=== PATIENT | female | born 1970 | race Asian ===

== ENCOUNTER → 2020-10-28 11:31 | Outpatient (CLI) | payer OTHER, SELFPAY ==
[2020-10-28 14:54] LABS: COVID19 -Nasal RAPID Negative (Negative)
== END ==
PROVIDERS: PCP Registered Nurse; Referring Provider Physician Assistant; Visit Provider Physician Assistant
DX: Z20.822 Contact with and (suspected) exposure to COVID-19 (principal); R51.9 Headache, unspecified
CPT/HCPCS: 87635

== ENCOUNTER → 2020-11-05 09:21 | Outpatient (CLI) | payer OTHER, SELFPAY ==
[2020-11-05 10:07] LABS: Add Manual Diff / Slide Review NO; Basophils Absolute Auto 100 /uL (0-100); Basophils Percent Auto 1.3 % (0-2); Eosinophils Absolute Auto 100 /uL (0-450); Eosinophils Percent Auto 1.4 % (2-4); Hematocrit 42.2 % (36-46); Hemoglobin 14.2 g/dL (12.0-16.0); Lymphocytes Absolute Auto 2200 /uL (1100-4500); Lymphocytes Percent Auto 35.3 % (25-40); Mean Corpuscular HGB Conc 33.7 % (30-36); Mean Corpuscular Hemoglobin 28.2 PG (26-34); Mean Corpuscular Volume 83.6 fL (80-100); Monocytes Absolute Auto 400 /uL (0-900); Neutrophils Absolute Auto 3500 /uL (1500-7000); Platelet Count 229 X10^3/uL (150-400); Red Blood Cell Count 5.05 X10^6/uL (4.0-5.2); Red Cell Distribution Width 12.9 % (11.6-14.8); White Blood Cell Count 6.2 X10^3/uL (4.5-11.0)
[2020-11-05 11:03] LABS: Alanine Aminotransferase 55 IU/L (<35); Albumin 4.7 g/dL (3.5-5.0); Albumin Globulin Ratio 1.6 (1.0-2.8); Alkaline Phosphatase 83 U/L (38-126); Aspartate Aminotransferase 40 IU/L (14-36); BUN Creatinine Ratio 11.8 (6-22); Bilirubin Total 0.5 mg/dL (0.2-1.3); Blood Urea Nitrogen 8 mg/dL (7-17); Calcium 9.9 mg/dL (8.4-10.2); Carbon Dioxide 27 mmol/L (22-32); Chloride 105 mmol/L (98-107); Cholesterol 158 mg/dL (140-199); Estimated Glomerular Filt Rate > 60.0 mL/min (>60); Globulin 2.9 g/dL (1.7-4.1); Glucose 101 mg/dL (70-100); HDL Cholesterol 53 mg/dL (40-60); HEMOLYSIS < 15 (0-50); LDL Cholesterol Calculated 78 mg/dL (<100); Potassium 4.8 mmol/L (3.4-5.1); Sodium 141 mmol/L (137-145); Total Protein 7.6 g/dL (6.3-8.2); Triglycerides 134 mg/dL (35-150)
[2020-11-05 11:19] LABS: Vitamin D 25 Hydroxy (D3) 59.9 ng/mL (30.0-100.0)
[2020-11-05 11:30] LABS: TSH w/ Reflex to FT4 1.92 uIU/mL (0.47-4.68)
== END ==
PROVIDERS: PCP Registered Nurse; Referring Provider Registered Nurse; Visit Provider Registered Nurse
DX: D64.9 Anemia, unspecified (principal); Z82.49 Family history of ischemic heart disease and other diseases of the circulatory system; Z86.39 Personal history of other endocrine, nutritional and metabolic disease
CPT/HCPCS: 36415; 80053; 80061; 82306; 84443; 85025

== ENCOUNTER → 2020-11-11 14:37 | Outpatient (CLI) | payer OTHER, SELFPAY ==
--- NOTE | 2020-11-11 14:38 | DI.US.S_ITS ---
PROCEDURE: US PELVIC COMPLETE INDICATIONS: DUB TECHNIQUE: Real-time scanning was performed of the pelvic organs, with image documentation. Additional endovaginal scanning was necessary due to incomplete visualization of the adnexal and endometrial structures by transabdominal scanning. COMPARISON: None. FINDINGS: Uterus: Uterus is normal in size at 8.1 x 4.0 x 5.7 cm. The endometrium measures 4.8 mm in combined thickness. 2 intramural fibroids, largest measuring 1.0 cm. Ovaries: Right ovary not visualized. Normal left ovary measuring 2.6 x 1.0 x 2.1 cm. Other: No pathologic free abdominal or pelvic fluid. IMPRESSION: 1. 2 small intramural fibroids, largest measuring 1.0 cm. Dictated by: Maxwell RINCON Interpreted: Christopher Sagastume MD on 11/11/2020 at 15:28 Transcribed by: CARMEN on 11/11/2020 at 15:29 Approved by: Christopher Sagastume M.D. on 11/11/2020 at 16:48
== END ==
PROVIDERS: PCP Registered Nurse; Referring Provider Registered Nurse; Visit Provider Registered Nurse
DX: N92.0 Excessive and frequent menstruation with regular cycle (principal); D25.1 Intramural leiomyoma of uterus
CPT/HCPCS: 76830; 76856

== ENCOUNTER → 2020-12-19 08:44 | Outpatient (CLI) | payer OTHER, SELFPAY ==
[2020-12-19 10:24] LABS: Appearance Urine UA CLOUDY; Bilirubin Urine UA NEGATIVE (NEGATIVE); Color Urine UA YELLOW; Glucose Urine UA NEGATIVE (Negative); Ketones Urine UA NEGATIVE (NEGATIVE); Leukocyte Esterase Urine UA 2+ (NEGATIVE); Nitrite Urine UA NEGATIVE (Negative); Occult Blood Urine UA 1+ (Negative); Protein Urine UA 1+ (Negative); Specific Gravity Urine UA 1.025 (1.000-1.035); Urobilinogen Urine UA 0.2 E.U./dL (0.2)
[2020-12-19 10:25] LABS: pH Urine UA 5.5 (4.5-8.0)
[2020-12-19 10:40] LABS: Bacteria Urine None Seen; RBC Urine 5-10/HPF (0-5/HPF); Squamous Epithelial Cell Urine 5-10 /HPF (0-5/HPF); WBC Urine 5-10/HPF (0-5/HPF)
[2020-12-19 10:41] LABS: Culture Indicated Urine Cult Not Indicated
== END ==
PROVIDERS: PCP Registered Nurse; Referring Provider Obstetrics & Gynecology; Visit Provider Obstetrics & Gynecology
DX: R30.0 Dysuria (principal)
CPT/HCPCS: 81001

== ENCOUNTER 2020-12-27 10:41 | Emergency (ER) | payer OTHER, SELFPAY ==
[2020-12-27 11:10] VITALS: BP 188/104; PULSE 80; RESP 14; TEMP 36.2; O2SAT 98; BMI 28.6
[2020-12-27 13:17] VITALS: BP 173/113; PULSE 92; RESP 16; O2SAT 94
--- NOTE | 2020-12-27 13:35 | ED.HA ---
HPI - Headache <TRENA Sharma - Last Filed: 12/27/20 16:53> General Chief Complaint: Headache Stated Complaint: migraine since wednesday/back of head tender Time Seen by Provider: 12/27/20 13:23 Mode of arrival: Ambulatory Limitations: no limitations History of Present Illness HPI Narrative: Patient is a 50-year-old female with history of asthma, GERD, anxiety/depression, migraines, and hypothyroidism who presents to the emergency department today with complaint of headache that started 2 days ago with nausea, no vomiting, and she does endorse having a swollen lymph node on the back of her neck. She reports that she took her Imitrex yesterday which helped a little bit but she has continued to have this headache and it has not gone away yet. She also reports she took some naproxen earlier this morning and she was able to go back to sleep. She denies any fever, abdominal pain, chest pain, vision changes, dizziness, difficulty breathing, Related Data Previous Rx's Medication Instructions Recorded buspirone 7.5 mg tablet 7.5 mg PO BID #60 tab 11/01/20 sumatriptan succinate 25 mg tablet See Rx Instructions PO .COMPLEX 11/19/20 (Imitrex) #60 tab hydroxyzine HCl 50 mg tablet 100 mg PO BEDTIME PRN #60 tab 12/03/20 levothyroxine 25 mcg tablet See Rx Instructions .ROUTE 12/04/20 .COMPLEX #90 tab alprazolam 0.5 mg tablet 0.5 mg PO DAILY PRN #7 tab 12/05/20 Allergies Allergy/AdvReac Type Severity Reaction Status Date / Time Penicillins Allergy Severe Hives Verified 12/27/20 11:14 erythromycin base Allergy Mild N/V Verified 12/27/20 11:14 Review of Systems <TRENA Sharma - Last Filed: 12/27/20 16:53> Review of Systems Narrative: General: denies fever, chills Head/Neck: Endorses having a headache for 2 days, denies neck pain or stiffness Eyes: denies visual changes, eye pain Cardio: denies chest pain, palpitations Respiratory: denies shortness of breath, cough, denies any URI symptoms GI: denies abdominal pain, vomiting, or diarrhea, endorses mild nausea but no vomiting : denies dysuria, hematuria MSK: denies joint pain, muscle weakness Skin: denies rash, itching Neuro: denies numbness, tingling Patient History <TRENA Sharma - Last Filed: 12/27/20 16:53> Medical History Anemia (~1998) Anxiety (~1998) Asthma Carpal tunnel syndrome (~2011) Chicken pox Degenerative disc disease (~2016) Depression (~1998) Fibroids (~2018) Headache (~2011) Heavy menstrual period (~2006) Hypothyroidism (~2009) Insomnia Irregular menstrual cycle (~2009) Migraines (~2011) Miscarriage Sleep apnea (~2014) Thyroid nodule Vertigo (~2012) Surgical History Anesthesia History of hand surgery (~2011) History of microdiscectomy (~2016) S/P arthroscopic surgery of left knee (~1999) Family History Father Hypertension Hyperlipidemia Mother Cancer Grandfather History of heart attack History of heart disease Hypertension Grandmother Hypertension Social History Smoking Status: Former smoker Tobacco: How many years used: 20 quit status: has quit before alcohol intake: current substance use type: does not use Smoking Status: Former smoker alcohol intake frequency: holidays/special occasions only Substance Use Type: does not use Exam <TRENA Sharma - Last Filed: 12/27/20 16:53> Narrative Exam Narrative: Independently reviewed vitals signs and nursing notes. General: Awake, alert, nontoxic, no cardiorespiratory distress Head/Neck: Atraumatic, neck full range of motion, 1 less than 1 cm lymph node palpated her left occipital scalp which was tender to palpation Eyes: EOMI, conjunctiva normal, no nystagmus, no photosensitivity Nose: nares patent, no rhinorrhea Mouth/Throat: moist mucus membranes, no oral lesions Cardio: Regular rate and rhythm, no peripheral edema Respiratory: respirations unlabored without wheezing, stridor, or rales. No retractions. GI: Abdomen soft, nontender MSK: Moves all extremities, neurovascularly intact Skin: Normal capillary refill, no rash Neuro: Normal speech and cognition, cranial nerves 2-12 are grossly intact without any focal deficits, patient ambulates with a steady gait, Initial Vital Signs Initial Vital Signs: Vital Signs Temperature 97.2 F L 12/27/20 11:10 Pulse Rate 80 12/27/20 11:10 Respiratory Rate 14 12/27/20 11:10 Blood Pressure 188/104 H 12/27/20 11:10 Pulse Oximetry 98 12/27/20 11:10 <Eron Sullivan MD - Last Filed: 12/27/20 18:32> Initial Vital Signs Initial Vital Signs: Vital Signs Temperature 97.2 F L 12/27/20 11:10 Pulse Rate 80 12/27/20 11:10 Respiratory Rate 14 12/27/20 11:10 Blood Pressure 188/104 H 12/27/20 11:10 Pulse Oximetry 98 12/27/20 11:10 Course <TRENA Sharma - Last Filed: 12/27/20 16:53> Orders Ordered: ED Orders 12/27/20 13:26 Magnesium Stat Discontinued Medications Acetaminophen (Acetaminophen 325 Mg Tablet) 975 mg PO NOW ONE Stop: 12/27/20 15:19 Last Admin: 12/27/20 15:38 Dose: 975 mg Documented by: HANNAH Dexamethasone (Dexamethasone 10 Mg/Ml Vial) 10 mg IV NOW ONE Stop: 12/27/20 13:25 Last Admin: 12/27/20 13:52 Dose: 10 mg Documented by: HANNAH Diphenhydramine HCl (Diphenhydramine 50 Mg/Ml Vial) 25 mg IV NOW ONE Stop: 12/27/20 13:25 Last Admin: 12/27/20 13:54 Dose: 25 mg Documented by: HANNAH Sodium Chloride (Normal Saline 0.9%) 1,000 mls @ 1,000 mls/hr IV BOLUS ONE Stop: 12/27/20 14:23 Last Infusion: 12/27/20 15:10 Dose: 0 mls/hr Documented by: Admin: 12/27/20 13:52 Dose: 1,000 mls/hr Documented by: HANNAH Magnesium Sulfate (Magnesium Sulfate) 2 gm in 50 mls @ 50 mls/hr IV NOW ONE Stop: 12/27/20 16:17 Last Infusion: 12/27/20 16:45 Dose: 0 mls/hr Documented by: HANNAH Cosigned by: ANDER Admin: 12/27/20 15:39 Dose: 50 mls/hr Documented by: HANNAH Cosigned by: SANKET Metoclopramide HCl (Metoclopramide 10 Mg/2 Ml Inj) 10 mg IV NOW ONE Stop: 12/27/20 13:25 Last Admin: 12/27/20 13:53 Dose: 10 mg Documented by: HANNAH Prochlorperazine (Prochlorperazine 10 Mg/2 Ml Vial) 10 mg IV NOW ONE Stop: 12/27/20 15:19 Last Admin: 12/27/20 15:38 Dose: 10 mg Documented by: HANNAH Sumatriptan Succinate (Sumatriptan 6 Mg/0.5 Ml Vial) 6 mg SUBCUT NOW ONE Stop: 12/27/20 13:27 Last Admin: 12/27/20 13:54 Dose: 6 mg Documented by: HANNAH Vital Signs Vital signs: Vital Signs - 8 hr 12/27/20 11:10 12/27/20 13:17 12/27/20 15:00 Temperature 97.2 F L Pulse Rate 80 92 H 85 Respiratory Rate 14 16 16 Blood Pressure 188/104 H 173/113 H 168/102 H Pulse Oximetry 98 94 96 12/27/20 16:34 Temperature Pulse Rate 76 Respiratory Rate 22 Blood Pressure 150/93 H Pulse Oximetry 96 <Eron Sullivan MD - Last Filed: 12/27/20 18:32> Orders Ordered: ED Orders 12/27/20 13:26 Magnesium Stat Discontinued Medications Acetaminophen (Acetaminophen 325 Mg Tablet) 975 mg PO NOW ONE Stop: 12/27/20 15:19 Last Admin: 12/27/20 15:38 Dose: 975 mg Documented by: HANNAH Dexamethasone (Dexamethasone 10 Mg/Ml Vial) 10 mg IV NOW ONE Stop: 12/27/20 13:25 Last Admin: 12/27/20 13:52 Dose: 10 mg Documented by: HANNAH Diphenhydramine HCl (Diphenhydramine 50 Mg/Ml Vial) 25 mg IV NOW ONE Stop: 12/27/20 13:25 Last Admin: 12/27/20 13:54 Dose: 25 mg Documented by: HANNAH Sodium Chloride (Normal Saline 0.9%) 1,000 mls @ 1,000 mls/hr IV BOLUS ONE Stop: 12/27/20 14:23 Last Infusion: 12/27/20 15:10 Dose: 0 mls/hr Documented by: Admin: 12/27/20 13:52 Dose: 1,000 mls/hr Documented by: HANNAH Magnesium Sulfate (Magnesium Sulfate) 2 gm in 50 mls @ 50 mls/hr IV NOW ONE Stop: 12/27/20 16:17 Last Infusion: 12/27/20 16:45 Dose: 0 mls/hr Documented by: HANNAH Cosigned by: ANDER Admin: 12/27/20 15:39 Dose: 50 mls/hr Documented by: HANNAH Cosigned by: SANKET Metoclopramide HCl (Metoclopramide 10 Mg/2 Ml Inj) 10 mg IV NOW ONE Stop: 12/27/20 13:25 Last Admin: 12/27/20 13:53 Dose: 10 mg Documented by: HANNAH Prochlorperazine (Prochlorperazine 10 Mg/2 Ml Vial) 10 mg IV NOW ONE Stop: 12/27/20 15:19 Last Admin: 12/27/20 15:38 Dose: 10 mg Documented by: HANNAH Sumatriptan Succinate (Sumatriptan 6 Mg/0.5 Ml Vial) 6 mg SUBCUT NOW ONE Stop: 12/27/20 13:27 Last Admin: 12/27/20 13:54 Dose: 6 mg Documented by: HANNAH Vital Signs Vital signs: Vital Signs - 8 hr 12/27/20 11:10 12/27/20 13:17 12/27/20 15:00 Temperature 97.2 F L Pulse Rate 80 92 H 85 Respiratory Rate 14 16 16 Blood Pressure 188/104 H 173/113 H 168/102 H Pulse Oximetry 98 94 96 12/27/20 16:34 Temperature Pulse Rate 76 Respiratory Rate 22 Blood Pressure 150/93 H Pulse Oximetry 96 MDM - Headache <TRENA Sharma - Last Filed: 12/27/20 16:53> Lab Data Labs: Lab Results 12/27/20 Range/Units 13:26 Magnesium 2.0 (1.6-2.3) mg/dL [facility] Narrative Medical decision making narrative: 50-year-old female with history of migraines, GERD, depression, hypothyroidism presents to the emergency department complaining of migraine for 2 days. Today she received Imitrex, Tylenol, Compazine, Decadron, 1 L NS, magnesium, Benadryl, and Reglan. She did not have any response after the 1st migraine cocktail so magnesium, Tylenol, and Compazine were added and then she finally had relief. She reports that she is now ready to go home, her blood pressure is 150/93 which is elevated, I encourage her to follow up with her primary care provider and let them know that her blood pressure was elevated today. Headache considerations include, but not limited to: Subarachnoid hemorrhage, but unlikely as patient denies sudden onset of pain, not worst of life, or neck pain Meningitis considered, but thought unlikely given lack of Brudzinski's, Kernig's sign, altered mental status or fever Giant cell arteritis considered, but thought unlikely given lack of unilateral findings, pain in confucianist, vision change HTN Emergency considered, but thought unlikely given mild elevation in blood pressure today. Other serious diagnoses considered unlikely given lack of red flag findings such as sudden onset, increasing frequency, immunocompromise, systemic signs (fever, chills, stiff neck, or rash), focal neurologic findings, trauma, blood thinners, etc.Patient is appropriate and amenable to discharge home. Vital signs are stable on repeat examination is unremarkable. Patient has been informed of results. Patient has been given strict return to ER precautions for any new or worsening symptoms. Patient understands to follow up closely with outpatient providers as instructed. Patient understands plan and agrees to discharge home. All questions and concerns answered at this time. <Eron Slulivan MD - Last Filed: 12/27/20 18:32> Lab Data Labs: Lab Results 12/27/20 Range/Units 13:26 Magnesium 2.0 (1.6-2.3) mg/dL Discharge Plan Departure Patient Disposition: Home Clinical Impression: Migraine Qualifiers: Migraine type: without aura Status migrainosus presence: without status migrainosus Intractability: not intractable Qualified Code(s): G43.009 - Migraine without aura, not intractable, without status migrainosus Instructions: DI for Migraine Activity Restrictions/Additional Instructions: *You have been diagnosed with a migraine which is finally a little better. I am sorry that you have had this migraine for the last couple of days I am glad that you have had a bit of improvement. Please let your primary care provider know that you were seen in the emergency department and had this migraine. Please continue your normal medications as prescribed. I hope that you have a good weekend and tried stay hydrated. *What to do: *Please continue to take your regular medications as directed. [ ] New medication prescriptions sent to your pharmacy: [ ] [ ] New medication written as a paper prescription [x ] No new medications given *Please follow up with your primary care provider in 2-3 days, call for an appointment. Let them know you were seen in the Emergency Department and that we ask that you be seen in follow up. We will electronically transmit a record of today's note if your PCP is in our system *If you do not have a primary care provider please contact the [facility] Resource line at [phone]. They will ask some questions about your medical history and help get you set up with a doctor in the community. *Return to Emergency Department if you should have any new, worsening or concerning symptoms, such as [fever greater than 101F, chills, worsening pain, persistent vomiting or other bothersome symptoms] Prescriptions: No Action sumatriptan succinate [Imitrex] 25 mg tablet See Rx Instructions PO .COMPLEX Qty: 60 RF: 0 hydroxyzine HCl 50 mg tablet 100 mg PO BEDTIME PRN (Reason: insomnia) Qty: 60 RF: 2 levothyroxine 25 mcg tablet See Rx Instructions .ROUTE .COMPLEX Qty: 90 RF: 2 alprazolam 0.5 mg tablet 0.5 mg PO DAILY PRN (Reason: anxiety) Qty: 7 RF: 0 buspirone 7.5 mg tablet 7.5 mg PO BID Qty: 60 RF: 2 Referrals: Marysol Blackmon ARNP [Primary Care Provider] -
[2020-12-27] MEDS: SODIUM CHLORIDE 0.9% 1,000 ML 1000 ML IV (13:52)
[2020-12-27] MEDS: DEXAMETHASONE 10 MG/ML VIAL IV (13:52)
[2020-12-27] MEDS: METOCLOPRAMIDE 10 MG/2 ML INJ IV (13:53)
[2020-12-27] MEDS: SUMAtriptan 6 MG/0.5 ML VIAL SUBCUT (13:54)
[2020-12-27] MEDS: diphenhydrAMINE 50 MG/ML VIAL 25 MG IV (13:54)
[2020-12-27 15:00] VITALS: BP 168/102; PULSE 85; RESP 16; O2SAT 96
[2020-12-27] MEDS: PROCHLORPERAZINE 10 MG/2 ML VIAL IV (15:38)
[2020-12-27] MEDS: ACETAMINOPHEN 325 MG TABLET 975 MG PO (15:38)
[2020-12-27] MEDS: MAGNESIUM SULFATE 2 GM/50 ML PIGGYBACK IV (15:39)
--- NOTE | 2020-12-27 16:25 | PC.NURSE ---
Pt states headache is improving.
[2020-12-27 16:34] VITALS: BP 150/93; PULSE 76; RESP 22; O2SAT 96
== END 2020-12-27 17:00 | disposition home or self-care (01) ==
PROVIDERS: Emergency Provider Nurse Practitioner Critical Care Medicine; PCP Registered Nurse
DX: G43.909 Migraine, unspecified, not intractable, without status migrainosus (principal); R59.0 Localized enlarged lymph nodes
CPT/HCPCS: 36415; 83735; 96361; 96365; 96372; 96375; 99284; J0780; J1100; J1200; J2765; J3030; J3475

== ENCOUNTER → 2021-02-05 15:33 | Outpatient (CLI) | payer OTHER, SELFPAY ==
[2021-02-05 16:06] LABS: COVID19 -Nasal RAPID Negative (Negative)
== END ==
PROVIDERS: PCP Registered Nurse; Visit Provider Obstetrics & Gynecology
DX: Z01.812 Encounter for preprocedural laboratory examination (principal); Z20.822 Contact with and (suspected) exposure to COVID-19
CPT/HCPCS: 87635

== ENCOUNTER 2021-02-06 12:28 | Day surgery (SDC) | payer OTHER, SELFPAY ==
[2021-02-05 09:41] VITALS: BMI 28.9
[2021-02-06] VITALS (21 sets, daily range): BP systolic 151–189; BP diastolic 98–118; PULSE 66–87; RESP 14–22; TEMP 35.9–36.6; O2SAT 97–100; BMI 28.9
--- NOTE | 2021-02-06 | PATH_ITS ---
[facility] Accession Number: [id number] . 01 Material submitted: . PART A: endocervix - ENDOCERVICAL CURETTINGS PART B: endometrium - ENDOMETRIAL CURETTINGS . 02 Diagnosis: A. Endocervical Curettings: Portions of lower uterine segment and portions of proliferative endometrium; negative for glandular hyperplasia, cytologic atypia, or malignancy. Some endometrial fragments demonstrate prominent vessels, suggestive of polyp, if clinical and imaging studies are concordant. Portions of squamous mucosa; negative for squamous dysplasia or malignancy. Please see comment. . B. Endometrial Curettings: Portions of disordered proliferative endometrium with patchy stromal breakdown; negative for glandular hyperplasia, cytologic atypia, or malignancy. Portions of endocervical polyp; negative for glandular dysplasia or malignancy. Occasional fragments of squamous mucosa; negative for squamous dysplasia or malignancy. V 02/10/2021 1624 Local . 02 Comment: Part A: Due to the scant amount of endocervical tissue in this biopsy, it may not be entirely equal opportunity representative of this patient's endocervix; additional sampling could be considered, if clinically appropriate. . 02 Electronically signed: . Deepa Bertrand MD, Pathologist NPI- [id number] . 01 Gross description: . Part A: ENDOCERVICAL CURETTINGS: Received in formalin are minute fragments of mucoid and hemorrhagic material measuring 0.3 x 0.3 x 0.1 cm in aggregate. Submitted in toto in 1 cassette. Part B: ENDOMETRIAL CURETTINGS: Received in formalin are minute fragments of mucoid and hemorrhagic material measuring 0.6 x 0.6 x 0.3 cm in aggregate. Submitted in toto in 1 cassette. /DONNIE 02/07/2021 0117 Local . 02 Pathologist provided ICD-10: N85.00 . 02 CPT . 920515, [id number] Performed at: 01 [facility] [address] [place] [address], [place], [place] [id number] MD Mike Barney MD Phone: [phone] Performed at: [facility] [address] [place], [place] [id number] MD Anna Reno MD Phone: [phone]
[2021-02-06] MEDS: LACTATED RINGERS 1,000 ML 42 ML IV (13:05)
--- NOTE | 2021-02-06 13:29 | PM.PREOP ---
Pre-operative Note COVID-19 COVID-19 status: Negative Result date/Date tested (Pos, Neg/Pending): 02/05/21 Interval Note History & Physical reviewed/Exam performed by Physician: Yes Changes to H&P: No
--- NOTE | 2021-02-06 14:17 | SUR.OPER ---
Lithotomy on padded OR bed, head on pillow, arms secured on padded arm boards at <90 degrees abduction. Legs secured in padded yellow fins stirrups.
--- NOTE | 2021-02-06 14:35 | PM.GYNOP.1 ---
Operative Date/Time/Diagnoses Date of procedure: 02/06/21 Time of procedure: 13:30 Pre-op diagnosis: Menometrorrhagia Post-op diagnosis: same Procedure & Clinicians Procedure: Procedures Operation Date: 02/06/21 13:30 Actual Procedure Side Surgeon p Hysteroscopy D&C, Novasure Endometrial Ablation Robert Miner MD Indications: Marybel is a 50-year-old , LMP 01/27/2021 who was referred by her primary care provider for evaluation of a long history of menometrorrhagia.? She experienced menarche at age 14 and had regular periods until delivering her 1st child in 1998.? Following her 1st delivery, she has had irregular menses ever since.? In the [id number] time frame, her physicians at that time suggested possibly performing hysterectomy or endometrial ablation but were concerned that because of her mother's history of some type of gynecologic cancer an ablation would keep them from being able to fully assess the endometrium should she developed postmenopausal bleeding.? A Mirena was inserted instead and she had initially good response with periods of AH menorrhea but the bleeding returned in November of 2018 and she had the Mirena removed because it was no longer helping.? Since that time however her periods have been completely chaotic with extremely heavy flows, accidents, and overflows especially at nighttime.? The patient had 2 periods in August and has not had any bleeding since that time.? Pap smears have always been normal and her most recent Pap was in 2019.? She denies any intermenstrual bleeding or postcoital bleeding.? She is not using any form of control as her long-time partner is likely infertile.? Review of systems is notable for recent onset of intermittent dysuria.? Pelvic ultrasound performed 11/11/2020 shows: FINDINGS: ? Uterus:? Uterus is normal in size at 8.1 x 4.0 x 5.7 cm.? The endometrium measures 4.8 mm in combined thickness.? 2 intramural fibroids, largest measuring 1.0 cm. ? Ovaries:? Right ovary not visualized.? Normal left ovary measuring 2.6 x 1.0 x 2.1 cm. ? Other: ? No pathologic free abdominal or pelvic fluid. ? IMPRESSION: ? 1. 2 small intramural fibroids, largest measuring 1.0 cm. Endometrial biopsy performed in December 2020 showed no atypia or hyperplastic changes.? After discussion of all options the patient does desire to proceed with hysteroscopy with possible biopsies, dilation and curettage of the uterus, and endometrial ablation via NovaSure.? She is currently scheduled to have those procedures performed in the Main OR of [facility] and presents today for her scheduled procedure. Surgeon: Robert Miner Anesthesia Type: General Operative Notes Findings: Normal endometrial cavity and endometrium. Closure Type: not applicable Specimen(s): endometrial curettings and other (Endocervical curettings) Estimated blood loss (mL): 10 Blood products transfused: none Procedure in detail: With the patient under satisfactory general anesthesia in the modified dorsal lithotomy position, the perineum vagina and lower abdomen were prepped and draped in the usual fashion for vaginal surgery. A pre-surgical safety time-out was then taken in accordance with [facility] protocols. A bivalve speculum was then inserted in the vagina and the cervix easily visualized. A single-tooth tenaculum was applied to the anterior lip of the cervix. The cervix was sounded to a depth of 8 cm and the endocervical canal dilated to 8 mm with Hegar dilators. The hysteroscope was then introduced and using sterile saline is added distension medium the endometrial cavity was fully visualized with the findings as noted above. Sharp curettage of the endometrium was then conducted followed by sharp curettage of the endocervical canal resulting in 2 specimens; endometrial curettings, endocervical curettings which were submitted for pathologic evaluation. Measurement of the endometrial cavity was then carried out with the Novasure vacity measurement device and found to be 4.5 cm. The Novasure device was then inserted into the endometrial cavity and the width as determined by and the NovaSure device was 3.7 cm. Once cavity integrity was assured, NovaSure ablation was initiated and time for complete ablation was 1 minute 26 seconds with power level of 92 w. The NovaSure device was then removed from the endometrial cavity without difficulty and the post ablation cavity was documented photographically. The single-tooth tenaculum was then removed from the cervix and there was slight bleeding from the left side puncture site. Allis clamps were used to stop the oozing from that puncture site and at the end of the case no bleeding was noted from either puncture site. The speculum was then removed and the surgery completed. The patient was then awakened and transferred to the PACU for a period of observation and recovery after having tolerated the procedure well. Complications: none Post-operative Condition: stable Disposition: PACU Plan for aftercare: Routine postoperative care and follow-up in 2 weeks or as needed.
[2021-02-06] MEDS: fentaNYL 100 MCG/2 ML INJ IV (15:17)
[2021-02-06] MEDS: LABETALOL 20 MG/4 ML SYRINGE IV ×4 (15:35→15:53)
== END 2021-02-06 16:00 | disposition home or self-care (01) ==
PROVIDERS: PCP Registered Nurse; Referring Provider Obstetrics & Gynecology; Visit Provider Obstetrics & Gynecology
PROC: 0U5B8ZZ Destruction of Endometrium, Via Natural or Artificial Opening Endoscopic (ICD-10-PCS; CPT 58563; principal; 2021-02-06 13:30)
DX: N84.1 Polyp of cervix uteri (principal); E03.9 Hypothyroidism, unspecified; I10 Essential (primary) hypertension; R07.89 Other chest pain; Z98.890 Other specified postprocedural states
CPT/HCPCS: 58563; 71045; 80053; 82550; 83690; 83880; 84484; 85025; 85610; 85730; 87635; 93005; 93010; 96360; 96361; 99284; C9803; J1100; J1885; J2405; J2704; J3010

== ENCOUNTER 2021-02-06 16:20 | Emergency (ER) | payer OTHER, SELFPAY ==
[2021-02-06] VITALS (12 sets, daily range): BP systolic 128–184; BP diastolic 88–111; PULSE 73–81; RESP 13–20; O2SAT 95–100; BMI 28.6
--- NOTE | 2021-02-06 16:27 | DI.RAD.S_ITS ---
PROCEDURE: XR CHEST 1V INDICATIONS: chest pain, htn TECHNIQUE: One view of the chest was acquired. COMPARISON: None. FINDINGS: Surgical changes and devices: None. Lungs and pleura: Lungs are clear. No pleural effusions or pneumothorax. Mediastinum: Mediastinal contours appear normal. Heart size is normal. Bones and chest wall: No suspicious bony lesions. Overlying soft tissues appear unremarkable. IMPRESSION: No evidence acute pulmonary process. Dictated by: Lance Jones M.D. on 02/06/2021 at 16:54 Approved by: Lance Jones M.D. on 02/06/2021 at 16:54
[2021-02-06] MEDS: SODIUM CHLORIDE 0.9% 1,000 ML 150 ML IV (16:45)
[2021-02-06 17:20] LABS: COVID19 -Nasal RAPID Negative (Negative)
[2021-02-06] MEDS: NITROGLYCERIN OINT 1 INCH/GM OINT...G. 0.5 INCH TOP (19:01)
[2021-02-06 19:06] LABS: Add Manual Diff / Slide Review NO; Basophils Absolute Auto 0 /uL (0-100); Basophils Percent Auto 0.1 % (0-2); Eosinophils Absolute Auto 0 /uL (0-450); Hematocrit 41.6 % (36-46); Hemoglobin 14.2 g/dL (12.0-16.0); Lymphocytes Absolute Auto 500 /uL (1100-4500); Lymphocytes Percent Auto 7.6 % (25-40); Mean Corpuscular Hemoglobin 27.8 PG (26-34); Mean Corpuscular Volume 81.7 fL (80-100); Monocytes Absolute Auto 100 /uL (0-900); Monocytes Percent Auto 1.1 % (3-14); Neutrophils Absolute Auto 6600 /uL (1500-7000); Neutrophils Percent Auto 91.2 % (50-75); Platelet Count 186 X10^3/uL (150-400); Red Blood Cell Count 5.09 X10^6/uL (4.0-5.2); White Blood Cell Count 7.2 X10^3/uL (4.5-11.0)
[2021-02-06 19:21] LABS: Prothrombin Time 11.4 SECONDS (10.1-12.7)
[2021-02-06 19:23] LABS: PTT Partial Thromboplastin Tim 36 SECONDS (26.4-36.2)
--- NOTE | 2021-02-06 19:24 | ED.CHESTPAIN ---
HPI - Chest Pain General Chief Complaint: Chest Pain Stated Complaint: HTN Time Seen by Provider: 02/06/21 16:26 Source: patient Mode of arrival: Wheelchair Limitations: no limitations History of Present Illness HPI narrative: 51-year-old female who earlier today underwent an elective endometrial ablation. It appears that the procedure went well. As the patient was in the recovery room she reported to be having issues with hypertension. Systolic blood pressures as high as the 180s. As she was recovering she was describing chest discomfort and because of these issues was brought to the emergency department for further evaluation. She does report chest discomfort at the time of evaluation. No shortness of breath. Minimal lower abdominal pain. Related Data Home Medications Medication Instructions Recorded Confirmed famotidine 20 mg tablet (Pepcid) 40 mg PO DAILY 02/06/21 02/06/21 omeprazole 20 mg capsule,delayed 20 mg PO DAILY 02/06/21 02/06/21 release Previous Rx's Medication Instructions Recorded sumatriptan succinate 25 mg tablet See Rx Instructions PO .COMPLEX 11/19/20 (Imitrex) #60 tab levothyroxine 25 mcg tablet See Rx Instructions .ROUTE 12/04/20 .COMPLEX #90 tab topiramate 25 mg tablet 25 mg PO .QHS #30 tab 12/31/20 alprazolam 0.5 mg tablet 0.5 mg PO DAILY PRN #14 tab 01/28/21 Allergies Allergy/AdvReac Type Severity Reaction Status Date / Time Penicillins Allergy Severe Hives Verified 02/05/21 15:00 quetiapine [From Seroquel] Allergy Severe sob Verified 02/05/21 15:00 erythromycin base Allergy Mild N/V Verified 02/05/21 15:00 Review of Systems Constitutional Constitutional: Denies fever(s) Cardiovascular Cardiovascular: Reports system reviewed and no additional complaints, except as documented Respiratory Respiratory: Reports system reviewed and no additional complaints, except as documented Gastrointestinal Gastrointestinal: Reports system reviewed and no additional complaints, except as documented Genitourinary Genitourinary: Reports system reviewed and no additional complaints, except as documented Integumentary/Breasts Skin/Breast: Reports system reviewed and no additional complaints, except as documented Neurologic Neurologic: Reports system reviewed and no additional complaints, except as documented Hematologic/Lymphatic On Anticoagulants: No Patient History Medical History Anemia (~1998) Anxiety (~1998) Asthma Carpal tunnel syndrome (~2011) Chicken pox Degenerative disc disease (~2016) Depression (~1998) Fibroids (~2018) Headache (~2011) Heavy menstrual period (~2006) History of endometrial biopsy (01/20/21) Hypothyroidism (~2009) Insomnia Irregular menstrual cycle (~2009) Migraines (~2011) Miscarriage Sleep apnea (~2014) Thyroid nodule Vertigo (~2012) Surgical History Anesthesia History of hand surgery (~2011) History of microdiscectomy (~2016) S/P arthroscopic surgery of left knee (~1999) Family History Father Hypertension Hyperlipidemia Mother Cancer Grandfather History of heart attack History of heart disease Hypertension Grandmother Hypertension Social History household members: significant other Smoking Status: Former smoker Tobacco: How many years used: 20 quit status: has quit before alcohol intake: current substance use type: does not use Smoking Status: Former smoker alcohol intake frequency: holidays/special occasions only Substance Use Type: does not use Exam Initial Vital Signs Initial Vital Signs: Vital Signs Pulse Rate 76 02/06/21 16:30 Respiratory Rate 20 02/06/21 16:30 Blood Pressure 177/107 H 02/06/21 16:30 Pulse Oximetry 100 02/06/21 16:30 Const General: cooperative, healthy appearing, comfortable and well developed Limitations: mental status not altered Neck Neck: normal visual inspection Resp Effort & Inspection: normal respiratory effort Auscultation: clear to auscultation bilaterally Cardio Rate: regular rate Rhythm: regular rhythm GI Inspection: non-distended Palpation: soft Skin General: no rashes or lesions noted Neuro General: patient alert, patient awake, patient oriented x3 and moves all extremities Extrem General: capillary refill normal and No edema Psych Appearance: grossly normal and well kempt Course Orders Ordered: ED Orders 02/06/21 16:27 XR chest 1V Stat EKG-12 Lead Stat 02/06/21 16:40 COVID19 -Nasal swab/Pre-Proc Stat 02/06/21 18:50 Complete Blood Count AUTO DIFF Stat Comprehensive Metabolic Panel Stat Lipase Stat NT-proBNP (BNP-Adult 18+) Stat Partial Thromboplastin Time Stat Prothrombin Time INR Stat Troponin & CK Cardiac Panel Stat Discontinued Medications Sodium Chloride (Normal Saline 0.9%) 1,000 mls @ 150 mls/hr IV CONT RICHARD Last Infusion: 02/06/21 19:04 Dose: 0 mls/hr Documented by: Admin: 02/06/21 16:45 Dose: 150 mls/hr Documented by: KIRSTEN Nitroglycerin (Nitroglycerin Oint 1 Inch/Gm Oint...G.) 0.5 inch TOP NOW ONE Stop: 02/06/21 18:42 Last Admin: 02/06/21 19:01 Dose: 0.5 inch Documented by: KIRSTEN Vital Signs Vital signs: Vital Signs - 8 hr 02/06/21 16:30 02/06/21 16:31 02/06/21 16:45 Pulse Rate 76 80 75 Respiratory Rate 20 18 15 Blood Pressure 177/107 H 184/111 H 155/97 H Pulse Oximetry 100 99 99 02/06/21 17:00 02/06/21 17:15 02/06/21 17:30 Pulse Rate 78 76 74 Respiratory Rate 20 16 14 Blood Pressure 164/107 H 164/105 H 148/96 H Pulse Oximetry 99 99 98 02/06/21 17:45 02/06/21 18:10 02/06/21 19:01 Pulse Rate 74 74 81 Respiratory Rate 13 15 Blood Pressure 143/96 H 160/89 H 160/89 H Pulse Oximetry 98 98 02/06/21 19:10 02/06/21 19:30 02/06/21 20:30 Pulse Rate 76 76 73 Respiratory Rate 15 17 16 Blood Pressure 158/91 H 144/95 H 128/88 Pulse Oximetry 99 97 95 MDM - Chest Pain Lab Data Attestation: I reviewed the patient's lab results. Result diagrams: 02/06/21 18:50 02/06/21 18:50 Labs: Lab Results 02/06/21 02/06/21 02/06/21 Range/Units 16:40 18:50 18:50 WBC (4.5-11.0) X10^3/uL RBC (4.0-5.2) X10^6/uL Hgb (12.0-16.0) g/dL Hct (36-46) % MCV (80-100) fL MCH (26-34) PG MCHC (30-36) % RDW (11.6-14.8) % Plt Count (150-400) X10^3/uL Neut % (Auto) (50-75) % Lymph % (Auto) (25-40) % Humphreys % (Auto) (3-14) % Eos % (Auto) (2-4) % Baso % (Auto) (0-2) % Neut # (Auto) (3877-5270) /uL Lymph # (Auto) (7804-0868) /uL Humphreys # (Auto) (0-900) /uL Eos # (Auto) (0-450) /uL Baso # (Auto) (0-100) /uL PT 11.4 (10.1-12.7) SECONDS INR 1.0 (0.9-1.3) APTT 36 (26.4-36.2) SECONDS Sodium (137-145) mmol/L Potassium (3.4-5.1) mmol/L Chloride (98-107) mmol/L Carbon Dioxide (22-32) mmol/L BUN (7-17) mg/dL Creatinine (0.52-1.04) mg/dL Estimated GFR (>60) mL/min BUN/Creatinine Ratio (6-22) Glucose (70-100) mg/dL Calcium (8.4-10.2) mg/dL Total Bilirubin (0.2-1.3) mg/dL AST (14-36) IU/L ALT (<35) IU/L Alkaline Phosphatase (38-126) U/L Total Creatine Kinase (30-135) U/L CK-MB (CK-2) CK-MB (CK-2) Rel Index Troponin I (0.01-0.034) ng/mL NT-Pro-B Natriuret Pep 61 (<125) pg/mL Total Protein (6.3-8.2) g/dL Albumin (3.5-5.0) g/dL Globulin (1.7-4.1) g/dL Albumin/Globulin Ratio (1.0-2.8) Lipase (23-300) U/L SARS-CoV-2 (PCR) Negative (Negative) 02/06/21 02/06/21 Range/Units 18:50 18:50 WBC 7.2 (4.5-11.0) X10^3/uL RBC 5.09 (4.0-5.2) X10^6/uL Hgb 14.2 (12.0-16.0) g/dL Hct 41.6 (36-46) % MCV 81.7 (80-100) fL MCH 27.8 (26-34) PG MCHC 34.0 (30-36) % RDW 14.0 (11.6-14.8) % Plt Count 186 (150-400) X10^3/uL Neut % (Auto) 91.2 H (50-75) % Lymph % (Auto) 7.6 L (25-40) % Humphreys % (Auto) 1.1 L (3-14) % Eos % (Auto) 0.0 L (2-4) % Baso % (Auto) 0.1 (0-2) % Neut # (Auto) 6600 (1821-9934) /uL Lymph # (Auto) 500 L (7863-3600) /uL Humphreys # (Auto) 100 (0-900) /uL Eos # (Auto) 0 (0-450) /uL Baso # (Auto) 0 (0-100) /uL PT (10.1-12.7) SECONDS INR (0.9-1.3) APTT (26.4-36.2) SECONDS Sodium 140 (137-145) mmol/L Potassium 4.1 (3.4-5.1) mmol/L Chloride 106 (98-107) mmol/L Carbon Dioxide 27 (22-32) mmol/L BUN 6 L (7-17) mg/dL Creatinine 0.68 (0.52-1.04) mg/dL Estimated GFR > 60.0 (>60) mL/min BUN/Creatinine Ratio 8.8 (6-22) Glucose 141 H (70-100) mg/dL Calcium 9.2 (8.4-10.2) mg/dL Total Bilirubin 1.0 (0.2-1.3) mg/dL AST 35 (14-36) IU/L ALT 39 H (<35) IU/L Alkaline Phosphatase 70 (38-126) U/L Total Creatine Kinase 61 (30-135) U/L CK-MB (CK-2) TNP CK-MB (CK-2) Rel Index TNP Troponin I < 0.012 (0.01-0.034) ng/mL NT-Pro-B Natriuret Pep (<125) pg/mL Total Protein 7.6 (6.3-8.2) g/dL Albumin 4.5 (3.5-5.0) g/dL Globulin 3.1 (1.7-4.1) g/dL Albumin/Globulin Ratio 1.5 (1.0-2.8) Lipase 70 (23-300) U/L SARS-CoV-2 (PCR) (Negative) Imaging Data Chest x-ray: Radiologist's Impression: [address] [address] XRay Report Signed Patient: Marybel Saucedo MR#: [id number] : 1970 Acct:[id number] Age/Sex: 51 / F Date of Service: 02/06/21 Loc: ED Accession Number: [id number] ?? Procedure: XR chest 1V Ordering Provider: Carline Buck D.O. PROCEDURE:? XR CHEST 1V ? INDICATIONS:? chest pain, htn ? TECHNIQUE:? One view of the chest was acquired.? ? COMPARISON:? None. ? FINDINGS:? ? Surgical changes and devices:? None.? ? Lungs and pleura:? Lungs are clear.? No pleural effusions or pneumothorax.? ? Mediastinum:? Mediastinal contours appear normal.? Heart size is normal.? ? Bones and chest wall:? No suspicious bony lesions.? Overlying soft tissues appear unremarkable.? ? IMPRESSION:? No evidence acute pulmonary process. ? ? ? Dictated by: Lance Jones M.D. on 02/06/2021 at 16:54 ? ? Approved by: Lance Jones M.D. on 02/06/2021 at 16:54?? ECG Data Attestation: I personally reviewed and interpreted this ECG as follows: Interpretation: Sinus rhythm Ventricular rate of 74 Normal axis Normal QRS Normal QTC No ST T wave changes MDM Narrative Medical decision making narrative: EKG is unremarkable, chest x-ray is unremarkable, labs unremarkable, troponin is negative. Had a discussion with the patient regarding her symptoms. She has been told that she potentially has high blood pressure she is been to the primary provider several times in the past and has been elevated but she has never been started on any medications because she has also had episodes where her blood pressure was normal. Her blood pressure improved here in the emergency department without intervention here in the ER. Chest pain resolved while she was here in the ER as well. She does take her blood pressure at home and I encouraged her to do so. I feel patient could be discharged home with further workup with her primary doctor. She expressed understanding and agreement. Discharge Plan Departure Patient Disposition: Home Clinical Impression: Hypertension, Atypical chest pain Instructions: DI for Atypical Chest Pain Activity Restrictions/Additional Instructions: I do recommend you continue to take all of your medications as directed. Take your blood pressure at home like we discussed. Contact your primary doctor for a follow-up. Continue all of the postoperative instructions given to you by the cytometry technologist for your procedure today. Return to the emergency department for any new or worsening symptoms Prescriptions: No Action sumatriptan succinate [Imitrex] 25 mg tablet See Rx Instructions PO .COMPLEX Qty: 60 0RF Rx Instructions: take 1 tab at onset of headache; if no relief may repeat 1 tab after at least 2 hrs; max = 4 tabs/24 hr PO levothyroxine 25 mcg tablet See Rx Instructions .ROUTE .COMPLEX Qty: 90 2RF Dose Instruction: take 1 tablet by mouth once daily Rx Instructions: take 1 tablet by mouth once daily topiramate 25 mg tablet 25 mg PO .QHS Qty: 30 0RF alprazolam 0.5 mg tablet 0.5 mg PO DAILY PRN (Reason: anxiety) Qty: 14 0RF omeprazole 20 mg Capsule,Delayed Release(Dr/Ec) 20 mg PO DAILY 0RF famotidine [Pepcid] 20 mg Tablet 40 mg PO DAILY 0RF Referrals: Marysol Blackmon, TRENA [Primary Care Provider] -
[2021-02-06 19:25] LABS: Alanine Aminotransferase 39 IU/L (<35); Albumin 4.5 g/dL (3.5-5.0); Albumin Globulin Ratio 1.5 (1.0-2.8); Alkaline Phosphatase 70 U/L (38-126); Aspartate Aminotransferase 35 IU/L (14-36); BUN Creatinine Ratio 8.8 (6-22); Blood Urea Nitrogen 6 mg/dL (7-17); Calcium 9.2 mg/dL (8.4-10.2); Carbon Dioxide 27 mmol/L (22-32); Chloride 106 mmol/L (98-107); Creatine Kinase 61 U/L (30-135); Estimated Glomerular Filt Rate > 60.0 mL/min (>60); Globulin 3.1 g/dL (1.7-4.1); Glucose 141 mg/dL (70-100); HEMOLYSIS < 15 (0-50); Lipase 70 U/L (23-300); Potassium 4.1 mmol/L (3.4-5.1); Sodium 140 mmol/L (137-145); Total Protein 7.6 g/dL (6.3-8.2)
[2021-02-06 19:34] LABS: NT-proBNP (BNP-Adult 18+) 61 pg/mL (<125)
[2021-02-06 19:36] LABS: Troponin I < 0.012 ng/mL (0.01-0.034)
== END 2021-02-06 21:27 | disposition home or self-care (01) ==
PROVIDERS: Emergency Medicine; Emergency Provider Emergency Medicine; PCP Registered Nurse
DX: I10 Essential (primary) hypertension (principal); R07.89 Other chest pain; Z87.891 Personal history of nicotine dependence; Z98.890 Other specified postprocedural states
CPT/HCPCS: 71045; 80053; 82550; 83690; 83880; 84484; 85025; 85610; 85730; 87635; 93005; C9803

== ENCOUNTER 2021-02-13 10:39 | Inpatient (IN) | payer OTHER, SELFPAY ==
[2021-02-13] VITALS (13 sets, daily range): BP systolic 136–174; BP diastolic 85–108; PULSE 93–117; RESP 12–19; TEMP 36.2–37.1; O2SAT 97–100; BMI 28.6
--- NOTE | 2021-02-13 10:54 | ED.OVERDOSE ---
HPI - Overdose General Chief Complaint: Toxicology Problem Stated Complaint: OD/SUICIDAL THOUGHTS Time Seen by Provider: 02/13/21 10:53 Mode of arrival: Wheelchair History of Present Illness HPI Narrative: 51-year-old woman with history of hypertension possible bipolar 2 disorder verses depression and anxiety with worsening depression and suicidal ideation. She had an apparent overdose attempt last night is brought in by her partner this morning who gives the majority of history is she is so somnolent. Her partner reports that she was triggered last night after seeing a picture of him with his prior and children they had an argument. When he came home at 8:00 p.m. she was sleeping and looked like she was ?blackout drunk? but easily protecting her airway. He decided that allowing her to sleep it off would be most appropriate. When she was still significantly somnolent this morning he brings her in. He is concerned that her healthcare team which includes nurse-practitioner, BHIP specialist and a single visit with Psychiatry and early December, is not fully aware of the severity of her persistent suicidal ideation. Brief review of medical record and notes suggest that that may actually be the case. Most of her complaints are round anxiety and insomnia rather than depression or suicidal thoughts. He is not sure what medications she actually took however she told him her anxiety medicine and sleeping pills. Current medications indicate Xanax 0.5 mg as needed 14 tablets month, topiramate 25 mg at HS prior prescriptions have had temazepam uncertain dose, quetiapine, hydroxyzine so it is conceivable she still had pills left over from all of those prescriptions available to her. Related Data Home Medications Medication Instructions Recorded Confirmed famotidine 20 mg tablet (Pepcid) 40 mg PO DAILY 02/06/21 02/06/21 omeprazole 20 mg capsule,delayed 20 mg PO DAILY 02/06/21 02/06/21 release Previous Rx's Medication Instructions Recorded sumatriptan succinate 25 mg tablet See Rx Instructions PO .COMPLEX 11/19/20 (Imitrex) #60 tab levothyroxine 25 mcg tablet See Rx Instructions .ROUTE 12/04/20 .COMPLEX #90 tab topiramate 25 mg tablet 25 mg PO .QHS #30 tab 12/31/20 alprazolam 0.5 mg tablet 0.5 mg PO DAILY PRN #14 tab 01/28/21 Allergies Allergy/AdvReac Type Severity Reaction Status Date / Time Penicillins Allergy Severe Hives Verified 02/13/21 10:48 quetiapine [From Seroquel] Allergy Severe sob Verified 02/13/21 10:48 erythromycin base Allergy Mild N/V Verified 02/13/21 10:48 Review of Systems Review of Systems ROS Unobtainable: Unobtainable due to medical condition Patient History Medical History Anemia (~1998) Anxiety (~1998) Asthma Carpal tunnel syndrome (~2011) Chicken pox Degenerative disc disease (~2016) Depression (~1998) Fibroids (~2018) Headache (~2011) Heavy menstrual period (~2006) History of endometrial biopsy (01/20/21) Hypothyroidism (~2009) Insomnia Irregular menstrual cycle (~2009) Migraines (~2011) Miscarriage Sleep apnea (~2014) Thyroid nodule Vertigo (~2012) Surgical History Anesthesia History of hand surgery (~2011) History of microdiscectomy (~2016) S/P arthroscopic surgery of left knee (~1999) Family History Father Hypertension Hyperlipidemia Mother Cancer Grandfather History of heart attack History of heart disease Hypertension Grandmother Hypertension Social History household members: significant other Smoking Status: Former smoker Tobacco: How many years used: 20 quit status: has quit before alcohol intake: current substance use type: does not use Smoking Status: Former smoker alcohol intake frequency: holidays/special occasions only Substance Use Type: does not use Exam Narrative Exam Narrative: General: Somnolent, protecting airway, dry mucous membranes rouses to stimulation but not interacting or answering direct questions HEENT: Dry mucous membranes, normal sclera with reactive pupils, Neck: supple Respiratory: Lungs are clear to auscultation, no wheezing no rales no rhonchi. Full and symmetrical air movement Cardiac: Regular rate and rhythm no murmurs no bruits Abdomen: Soft, nontender, good bowel tones, no flank pain Skin: Warm and dry, no rashes, no signs of self cutting Neurologic: Grossly neurologically intact with no obvious asymmetries or abnormalities Extremities: No trauma, well perfused Psych: Too somnolent to assess Initial Vital Signs Initial Vital Signs: Vital Signs Pulse Rate 117 H 02/13/21 10:44 Respiratory Rate 19 02/13/21 10:44 Pulse Oximetry 99 02/13/21 10:44 Course Orders Ordered: ED Orders 02/13/21 10:40 Acetaminophen Stat Complete Blood Count AUTO DIFF Stat Comprehensive Metabolic Panel Stat Ethanol (ETOH) Stat Free T4, Direct Thyroxine Stat Salicylate Stat Thyroid Stimulating Hormone Stat 02/13/21 12:09 Urine Culture Stat Urine Drug Screen, Rapid Stat Urine Microscopic Stat 02/13/21 12:25 COVID19 - ADMIT (RETREAD TECHNICIAN swab/PCR) Stat Acetaminophen (Acetaminophen 325 Mg Tablet) 650 mg PO Q6HR PRN PRN Reason: Fever/Mild Pain (1-3) Hydrocodone Bitart/Acetaminophen (Hydrocodone/Acet 5/325 Tablet) 1 tab PO Q4HR PRN PRN Reason: Pain, Moderate (4-6) Bisacodyl (Bisacodyl 10 Mg Supp) 10 mg PA DAILY PRN PRN Reason: Constipation Enoxaparin Sodium (Enoxaparin 40 Mg/0.4 Ml Syringe) 40 mg SUBCUT DAILY RICHARD Sodium Chloride (Normal Saline 0.9%) 1,000 mls @ 100 mls/hr IV CONT RICHARD Last Admin: 02/13/21 14:50 Dose: 100 mls/hr Documented by: SAMREEN Levothyroxine Sodium (Levothyroxine 25 Mcg Tablet) 25 mcg PO DAILY@0600 RICHARD Naloxone HCl (Naloxone 0.4 Mg/Ml Vial) 0.2 mg IV Q2MIN PRN PRN Reason: Opiate Reversal Ondansetron HCl (Ondansetron 4 Mg/2 Ml Inj) 4 mg IV Q8HR PRN PRN Reason: Nausea And Vomiting Pantoprazole Sodium (Pantoprazole Dr 20 Mg Tablet) 20 mg PO 0600 RICHARD Topiramate (Topiramate 25 Mg Tablet) 25 mg PO DAILY RICHARD Discontinued Medications Sodium Chloride (Normal Saline 0.9%) 1,000 mls @ 1,000 mls/hr IV BOLUS ONE Stop: 02/13/21 12:06 Last Infusion: 02/13/21 12:08 Dose: 0 mls/hr Documented by: Admin: 02/13/21 11:17 Dose: 1,000 mls/hr Documented by: ARELY Sodium Chloride (Normal Saline 0.9%) 1,000 mls @ 150 mls/hr IV CONT RICHARD Last Infusion: 02/13/21 14:13 Dose: 150 mls/hr Documented by: Admin: 02/13/21 12:08 Dose: 150 mls/hr Documented by: ARELY Sodium Chloride (Normal Saline 0.9%) 1,000 mls @ 100 mls/hr IV CONT RICHARD Last Admin: 02/13/21 17:12 Dose: Not Given Documented by: SAMREEN Vital Signs Vital signs: Vital Signs - 8 hr 02/13/21 11:30 02/13/21 12:05 02/13/21 12:06 Pulse Rate 103 H 108 H Respiratory Rate 17 Blood Pressure 146/87 H 161/91 H Pulse Oximetry 99 97 98 02/13/21 12:30 02/13/21 13:00 Pulse Rate 98 H 98 H Respiratory Rate 15 15 Blood Pressure 156/93 H 147/90 H Pulse Oximetry 98 97 MDM - Overdose Lab Data Lab results narrative: Screen does show positive 1st tricyclics. Partner does not report any tricyclics prescribed or available at home and quetiapine can cross react and show as tricyclics on a urine drug screen. Looking through recent notes she has been on quetiapine and could conceivably have that at home Result diagrams: 02/13/21 10:40 02/13/21 10:40 Labs: Lab Results 02/13/21 02/13/21 02/13/21 Range/Units 10:40 10:40 10:40 WBC 17.1 H (4.5-11.0) X10^3/uL RBC 4.96 (4.0-5.2) X10^6/uL Hgb 13.6 (12.0-16.0) g/dL Hct 40.2 (36-46) % MCV 81.0 (80-100) fL MCH 27.4 (26-34) PG MCHC 33.9 (30-36) % RDW 14.2 (11.6-14.8) % Plt Count 182 (150-400) X10^3/uL Neut % (Auto) 89.3 H (50-75) % Lymph % (Auto) 4.8 L (25-40) % [place] % (Auto) 5.7 (3-14) % Eos % (Auto) 0.0 L (2-4) % Baso % (Auto) 0.2 (0-2) % Neut # (Auto) 99537 H (5956-7271) /uL Lymph # (Auto) 800 L (0189-2003) /uL [place] # (Auto) 1000 H (0-900) /uL Eos # (Auto) 0 (0-450) /uL Baso # (Auto) 0 (0-100) /uL Sodium 138 (137-145) mmol/L Potassium 3.7 (3.4-5.1) mmol/L Chloride 103 (98-107) mmol/L Carbon Dioxide 26 (22-32) mmol/L BUN 12 (7-17) mg/dL Creatinine 0.75 (0.52-1.04) mg/dL Estimated GFR > 60.0 (>60) mL/min BUN/Creatinine Ratio 16.0 (6-22) Glucose 113 H (70-100) mg/dL Calcium 9.4 (8.4-10.2) mg/dL Total Bilirubin 0.9 (0.2-1.3) mg/dL AST 33 (14-36) IU/L ALT 36 H (<35) IU/L Alkaline Phosphatase 74 (38-126) U/L Total Protein 7.7 (6.3-8.2) g/dL Albumin 4.7 (3.5-5.0) g/dL Globulin 3.0 (1.7-4.1) g/dL Albumin/Globulin Ratio 1.6 (1.0-2.8) TSH 0.997 (0.47-4.68) uIU/mL Free T4 1.15 (0.78-2.19) ng/dL Urine RBC (0-5/HPF) Urine WBC (0-5/HPF) Ur Squamous Epith Cells (0-5/HPF) Urine Bacteria (None) Urine Mucus (Negative) Ur Culture Indicated? Salicylates < 1.0 (<20) mg/dL U Opiates 300ng/mL cut (Negative) Ur Oxycodone Screen (Negative) Urine Methadone Screen (Negative) Acetaminophen < 10 L (10-30) ug/mL Ur Barbiturates Screen (Negative) U Tricyclic Antidepress (Negative) Ur Phencyclidine Scrn (Negative) Ur Amphetamines Screen (Negative) U Methamphetamines Scrn (Negative) Ur MDMA Scrn (Ecstasy) (Negative) U Benzodiazepines Scrn (Negative) Urine Cocaine Screen (Negative) U Marijuana (THC) Screen (Negative) Ethyl Alcohol < 10 ( - 10) mg/dL SARS-CoV-2 (PCR) (Negative) 02/13/21 02/13/21 02/13/21 Range/Units 12:09 12:09 12:25 WBC (4.5-11.0) X10^3/uL RBC (4.0-5.2) X10^6/uL Hgb (12.0-16.0) g/dL Hct (36-46) % MCV (80-100) fL MCH (26-34) PG MCHC (30-36) % RDW (11.6-14.8) % Plt Count (150-400) X10^3/uL Neut % (Auto) (50-75) % Lymph % (Auto) (25-40) % [place] % (Auto) (3-14) % Eos % (Auto) (2-4) % Baso % (Auto) (0-2) % Neut # (Auto) (7294-6386) /uL Lymph # (Auto) (5928-8791) /uL [place] # (Auto) (0-900) /uL Eos # (Auto) (0-450) /uL Baso # (Auto) (0-100) /uL Sodium (137-145) mmol/L Potassium (3.4-5.1) mmol/L Chloride (98-107) mmol/L Carbon Dioxide (22-32) mmol/L BUN (7-17) mg/dL Creatinine (0.52-1.04) mg/dL Estimated GFR (>60) mL/min BUN/Creatinine Ratio (6-22) Glucose (70-100) mg/dL Calcium (8.4-10.2) mg/dL Total Bilirubin (0.2-1.3) mg/dL AST (14-36) IU/L ALT (<35) IU/L Alkaline Phosphatase (38-126) U/L Total Protein (6.3-8.2) g/dL Albumin (3.5-5.0) g/dL Globulin (1.7-4.1) g/dL Albumin/Globulin Ratio (1.0-2.8) TSH (0.47-4.68) uIU/mL Free T4 (0.78-2.19) ng/dL Urine RBC 1-5/hpf (0-5/HPF) Urine WBC 5-10/hpf H (0-5/HPF) Ur Squamous Epith Cells 1-5 /hpf (0-5/HPF) Urine Bacteria Few (2-10) H (None) Urine Mucus 1+ H (Negative) Ur Culture Indicated? Specimen cultured Salicylates (<20) mg/dL U Opiates 300ng/mL cut Negative (Negative) Ur Oxycodone Screen Negative (Negative) Urine Methadone Screen Negative (Negative) Acetaminophen (10-30) ug/mL Ur Barbiturates Screen Negative (Negative) U Tricyclic Antidepress Positive H (Negative) Ur Phencyclidine Scrn Negative (Negative) Ur Amphetamines Screen Negative (Negative) U Methamphetamines Scrn Negative (Negative) Ur MDMA Scrn (Ecstasy) Negative (Negative) U Benzodiazepines Scrn Negative (Negative) Urine Cocaine Screen Negative (Negative) U Marijuana (THC) Screen Negative (Negative) Ethyl Alcohol ( - 10) mg/dL SARS-CoV-2 (PCR) Negative (Negative) Point of Care Testing Test Results Negative Urine Dip Bedside Urine Glucose Negative Bedside Urine Bilirubin + 1 Bedside Urine Ketone +/- 5 Urine Specific [place] 1.020 Bedside Urine Occult Blood ++ Bedside Urine pH 6.5 Bedside Urine Protein +/- 15 Bedside Urine Urobilinogen - Negative Bedside Urine Nitrite - Negative Bedside Urine Leukocytes +/- 15 Esterase Imaging Data Chest x-ray: Radiologist's Impression: FINDINGS:? ? Surgical changes and devices:? None.? ? Lungs and pleura:? Lungs are clear.? No pleural effusions or pneumothorax.? ? Mediastinum:? Mediastinal contours appear normal.? Heart size is normal.? ? Bones and chest wall:? No suspicious bony lesions.? Overlying soft tissues appear unremarkable.? ? IMPRESSION:? No evidence acute pulmonary process. ? ? ? Dictated by: Lance Jones M.D. on 02/06/2021 at 16:54? ?? ECG Data Interpretation: Sinus tach at a rate of [address] T wave changes No acute ischemia MDM Narrative Medical decision making narrative: 51-year-old woman with overdose attempt last night unclear what medications she took or how many. She presents approximately 15 hours after ingestion. She is easily protecting her airway but remained significantly somnolent. She does have a slightly elevated white blood cell count however no obvious signs or symptoms of infection. She does have mild white blood cells in urine occasional bacteria but also urine mucus. At this point, she is clearly going to need a number of hours to sober enough to be medically cleared. Care is reviewed with hospitalist, Dr. coelho. She will be admitted to the hospitalist service and once medically cleared will need social work evaluation and consideration of inpatient treatment for her depression with suicidal ideation. Discharge Plan Departure Patient Disposition: Admitted as Observation Clinical Impression: Overdose, Depression, Suicidal behavior Admit Date/Time: 02/13/21 13:24 Admit Provider: Kristie Coelho
[2021-02-13 11:09] LABS: Add Manual Diff / Slide Review NO; Basophils Absolute Auto 0 /uL (0-100); Basophils Percent Auto 0.2 % (0-2); Eosinophils Absolute Auto 0 /uL (0-450); Hematocrit 40.2 % (36-46); Hemoglobin 13.6 g/dL (12.0-16.0); Lymphocytes Absolute Auto 800 /uL (1100-4500); Lymphocytes Percent Auto 4.8 % (25-40); Mean Corpuscular HGB Conc 33.9 % (30-36); Mean Corpuscular Hemoglobin 27.4 PG (26-34); Monocytes Absolute Auto 1000 /uL (0-900); Monocytes Percent Auto 5.7 % (3-14); Neutrophils Absolute Auto 15300 /uL (1500-7000); Neutrophils Percent Auto 89.3 % (50-75); Platelet Count 182 X10^3/uL (150-400); Red Blood Cell Count 4.96 X10^6/uL (4.0-5.2); Red Cell Distribution Width 14.2 % (11.6-14.8); White Blood Cell Count 17.1 X10^3/uL (4.5-11.0)
[2021-02-13 11:10] LABS: Acetaminophen < 10 ug/mL (10-30); Alanine Aminotransferase 36 IU/L (<35); Albumin 4.7 g/dL (3.5-5.0); Albumin Globulin Ratio 1.6 (1.0-2.8); Alkaline Phosphatase 74 U/L (38-126); Aspartate Aminotransferase 33 IU/L (14-36); Bilirubin Total 0.9 mg/dL (0.2-1.3); Blood Urea Nitrogen 12 mg/dL (7-17); Calcium 9.4 mg/dL (8.4-10.2); Carbon Dioxide 26 mmol/L (22-32); Chloride 103 mmol/L (98-107); Estimated Glomerular Filt Rate > 60.0 mL/min (>60); Ethanol (ETOH) < 10 mg/dL; Glucose 113 mg/dL (70-100); HEMOLYSIS < 15 (0-50); Potassium 3.7 mmol/L (3.4-5.1); Salicylate < 1.0 mg/dL (<20); Sodium 138 mmol/L (137-145); Total Protein 7.7 g/dL (6.3-8.2)
[2021-02-13] MEDS: SODIUM CHLORIDE 0.9% 1,000 ML 1000 ML IV (11:17)
[2021-02-13 11:40] LABS: Free T4, Direct Thyroxine 1.15 ng/dL (0.78-2.19)
[2021-02-13 11:54] LABS: Thyroid Stimulating Hormone 0.997 uIU/mL (0.47-4.68)
[2021-02-13] MEDS: SODIUM CHLORIDE 0.9% 1,000 ML 150 ML IV (12:08)
[2021-02-13 12:28] LABS: Ur Creatinine Normal (Normal); Ur Specific Gravity Normal (Normal); Urine pH Normal (Normal)
[2021-02-13 12:29] LABS: UR Morphine/Opiate cutoff 300 Negative (Negative); Urine Amphetamines Negative (Negative); Urine Barbiturates Negative (Negative); Urine Benzodiazepines Negative (Negative); Urine Cocaine Negative (Negative); Urine MDMA Negative (Negative); Urine Methadone Negative (Negative); Urine Methamphetamines Negative (Negative); Urine Oxycodone Negative (Negative); Urine Phencyclidine Negative (Negative); Urine Tetrahydrocannabinol Negative (Negative); Urine Tricyclic Antidepressant Positive (Negative)
[2021-02-13 12:49] LABS: Bacteria Urine Few (2-10); Culture Indicated Urine Specimen Cultured; Mucus Urine 1+ (Negative); RBC Urine 1-5/HPF (0-5/HPF); Squamous Epithelial Cell Urine 1-5 /HPF (0-5/HPF); WBC Urine 5-10/HPF (0-5/HPF)
[2021-02-13 13:42] LABS: COVID19 - ADMIT (NP swab/PCR) Negative (Negative)
--- NOTE | 2021-02-13 14:07 | PC.NURSE ---
pt opens eyes to voice/touch on shoulder. Will state yes when asked if this was a suicide attempt and states she took amytriptyline and something else. Was able to transfer with one assist to BSC to give urine sample, then back to bed to sleep. Unable to assess further as pt keeps falling asleep.
[2021-02-13] MEDS: SODIUM CHLORIDE 0.9% 1,000 ML 100 ML IV ×2 (14:50→21:55)
--- NOTE | 2021-02-13 15:04 | PC.NURSE ---
Addendum entered by Julita Matthews R.N. 02/13/21 18:12: Patient has been sleeping soundly. She will arouse to voice and then falls right back to sleep. sleeping in supine position. Original Note: Assess- Patient is alert but confused x1, worried about her cell phone, this was not down in ER or in the clothes bag that she brought up to her room. Will call and ask her boyfriend Gilberto if he has it. Patients skin is clear, she is a one person assist to the commode and unsteady. She has voided. She is confused and up here in acute care for suicidal incident of taking to much medication. Patient is sleepy but does wake up.
--- NOTE | 2021-02-13 16:31 | P.HP_ITS ---
History of Present Illness History of Present Illness Date Patient Seen: 02/13/21 Chief complaint: OD/SUICIDAL THOUGHTS Narrative: The patient is a 51-year-old female with a history of anemia, anxiety, asthma, depression, hypothyroidism, migraine headache, obstructive sleep apnea, who rep orts she has been feeling depressed. The patient states she took 10 amitriptyline in an attempt to overdose. Her significant other found her at home groggy. He thought she had taken extra of her medications. The patient remained quite lethargic and sleepy this morning. She was brought in by her partner because of her being Somnolent. Her partner reports the patient was triggered by Moe a picture of him with his prior and children. They had a argument. When he came home at 8:00 p.m. she was sleeping and looked as though she were ?blacked out drunk?. He loud her to sleep it off however she remained minimally responsive this morning. Patient was brought into the hospital for further evaluation. The patient reports a history of depression, she also reports a history of suicide in 2011 where she took pills. Patient History Medical History Anemia (~1998) Anxiety (~1998) Asthma Carpal tunnel syndrome (~2011) Chicken pox Degenerative disc disease (~2016) Depression (~1998) Fibroids (~2018) Headache (~2011) Heavy menstrual period (~2006) History of endometrial biopsy (01/20/21) Hypothyroidism (~2009) Insomnia Irregular menstrual cycle (~2009) Migraines (~2011) Miscarriage Sleep apnea (~2014) Thyroid nodule Vertigo (~2012) Surgical History Anesthesia History of hand surgery (~2011) History of microdiscectomy (~2016) S/P arthroscopic surgery of left knee (~1999) Family & Social History Family History Father Hypertension Hyperlipidemia Mother Cancer Grandfather History of heart attack History of heart disease Hypertension Grandmother Hypertension Social History: household members significant other Safety & Behavioral: Feels Safe in Current Yes Environment Been Physically Hurt or No Threatened By a Person Suicidal Ideation Description Vague Suicide Plan Description Vague Tobacco & Substance use: Smoking Status Former smoker alcohol intake current alcohol intake frequency holiday/special occasion Substance Use Type does not use Meds Home Medications and Allergies Home Medications Medication Instructions Recorded Confirmed Type sumatriptan succinate 25 mg tablet See Rx Instructions PO .COMPLEX 11/19/20 02/06/21 Rx (Imitrex) #60 tab levothyroxine 25 mcg tablet See Rx Instructions .ROUTE 12/04/20 02/06/21 Rx .COMPLEX #90 tab topiramate 25 mg tablet 25 mg PO .QHS #30 tab 12/31/20 02/06/21 Rx alprazolam 0.5 mg tablet 0.5 mg PO DAILY PRN #14 tab 01/28/21 02/06/21 Rx famotidine 20 mg tablet (Pepcid) 40 mg PO DAILY 02/06/21 02/06/21 History omeprazole 20 mg capsule,delayed 20 mg PO DAILY 02/06/21 02/06/21 History release Allergies Allergy/AdvReac Type Severity Reaction Status Date / Time Penicillins Allergy Severe Hives Verified 02/13/21 10:48 quetiapine [From Seroquel] Allergy Severe sob Verified 02/13/21 10:48 erythromycin base Allergy Mild N/V Verified 02/13/21 10:48 Review of Systems Review of Systems Narrative: Ten point review of systems is negative Exam Vital Signs (past 8 hours): - 02/13/21 10:44 02/13/21 10:45 02/13/21 11:00 Temperature 97.2 F L Pulse Rate 117 H 116 H 111 H Respiratory Rate 19 12 15 Blood Pressure 174/102 H 159/88 H Pulse Oximetry 99 100 99 02/13/21 11:30 02/13/21 12:05 02/13/21 12:06 Temperature Pulse Rate 103 H 108 H Respiratory Rate 17 Blood Pressure 146/87 H 161/91 H Pulse Oximetry 99 97 98 02/13/21 12:30 02/13/21 13:00 02/13/21 13:30 Temperature Pulse Rate 98 H 98 H 98 H Respiratory Rate 15 15 14 Blood Pressure 156/93 H 147/90 H 136/85 Pulse Oximetry 98 97 97 02/13/21 14:00 Temperature Pulse Rate 98 H Respiratory Rate 13 Blood Pressure 142/85 H Pulse Oximetry 97 Oxygen Delivery Method Room Air Narrative Exam Narrative: Pleasant female somewhat lethargic but arousable HENAR Other: HEENT: Normocephalic atraumatic, extraocular muscles are intact, sclerae anicteric, oropharynx is clear with moist mucous membranes neck is supple without adenopathy no evidence of thyromegaly Resp Other: Lungs clear to auscultation Cardio Other: Cardiac exam: Regular rate and rhythm normal S1-S2 GI Other: Abdomen: Soft nontender nondistended without hepatosplenomegaly Neuro Other: Cranial nerves 2-12 are intact, strength is symmetric and equal, sensations grossly intact, reflexes are brisk and equal, gait is not assessed Extrem Other: Extremity no edema Objective ECG Impression: Sinus Tachycardia with non specific ST Twave abnormalities Labs Result Diagrams: 02/13/21 10:40 02/13/21 10:40 Labs: Laboratory Results - last 24 hr 02/13/21 02/13/21 02/13/21 10:40 10:40 10:40 WBC 17.1 H RBC 4.96 Hgb 13.6 Hct 40.2 MCV 81.0 MCH 27.4 MCHC 33.9 RDW 14.2 Plt Count 182 Neut % (Auto) 89.3 H Lymph % (Auto) 4.8 L [place] % (Auto) 5.7 Eos % (Auto) 0.0 L Baso % (Auto) 0.2 Neut # (Auto) 65035 H Lymph # (Auto) 800 L [place] # (Auto) 1000 H Eos # (Auto) 0 Baso # (Auto) 0 Sodium 138 Potassium 3.7 Chloride 103 Carbon Dioxide 26 BUN 12 Creatinine 0.75 Estimated GFR > 60.0 BUN/Creatinine Ratio 16.0 Glucose 113 H Calcium 9.4 Total Bilirubin 0.9 AST 33 ALT 36 H Alkaline Phosphatase 74 Total Protein 7.7 Albumin 4.7 Globulin 3.0 Albumin/Globulin Ratio 1.6 TSH 0.997 Free T4 1.15 Urine RBC Urine WBC Ur Squamous Epith Cells Urine Bacteria Urine Mucus Ur Culture Indicated? Salicylates < 1.0 U Opiates 300ng/mL cut Ur Oxycodone Screen Urine Methadone Screen Acetaminophen < 10 L Ur Barbiturates Screen U Tricyclic Antidepress Ur Phencyclidine Scrn Ur Amphetamines Screen U Methamphetamines Scrn Ur MDMA Scrn (Ecstasy) U Benzodiazepines Scrn Urine Cocaine Screen U Marijuana (THC) Screen Ethyl Alcohol < 10 SARS-CoV-2 (PCR) 02/13/21 02/13/21 02/13/21 12:09 12:09 12:25 WBC RBC Hgb Hct MCV MCH MCHC RDW Plt Count Neut % (Auto) Lymph % (Auto) [place] % (Auto) Eos % (Auto) Baso % (Auto) Neut # (Auto) Lymph # (Auto) [place] # (Auto) Eos # (Auto) Baso # (Auto) Sodium Potassium Chloride Carbon Dioxide BUN Creatinine Estimated GFR BUN/Creatinine Ratio Glucose Calcium Total Bilirubin AST ALT Alkaline Phosphatase Total Protein Albumin Globulin Albumin/Globulin Ratio TSH Free T4 Urine RBC 1-5/hpf Urine WBC 5-10/hpf H Ur Squamous Epith Cells 1-5 /hpf Urine Bacteria Few (2-10) H Urine Mucus 1+ H Ur Culture Indicated? Specimen cultured Salicylates U Opiates 300ng/mL cut Negative Ur Oxycodone Screen Negative Urine Methadone Screen Negative Acetaminophen Ur Barbiturates Screen Negative U Tricyclic Antidepress Positive H Ur Phencyclidine Scrn Negative Ur Amphetamines Screen Negative U Methamphetamines Scrn Negative Ur MDMA Scrn (Ecstasy) Negative U Benzodiazepines Scrn Negative Urine Cocaine Screen Negative U Marijuana (THC) Screen Negative Ethyl Alcohol SARS-CoV-2 (PCR) Negative Assessment & Plan Assessment & Plan narrative: 51-year-old female with a history of anxiety and depression, hypothyroidism, GERD, migraine headache admitted to the hospital for an intentional overdose with amitriptyline * Patient reports a history of depression suicide ideation. She was feeling particularly depressed and took 10 amitriptyline, QTC interval within normal limits, will continue to monitor on Telemetry * She does have a history of suicidal ideation, she admits to an overdose in 2011 * Patient is lethargic, however she is arousable, she is able to converse, and provide history * Will obtain psychiatry consultation, her psychiatrist is Dr. Dewitt, will obtain inpatient psych consult regarding disposition * Will continue the patient on her Topamax Hypothyroidism * Continue levothyroxine GERD * Continue proton pump inhibitor Migraine headache * Continue Imitrex as needed as needed Have reviewed all available records to update and confirm the patient's current medication Patient is unsure whether she wants to be a full code or no code, therefore she will default to a full code She reports her son is surrogate decision maker Patient will be admitted as an inpatient Disposition pending psychiatric evaluation Time Spent With Patient Critical Care time: I spent a total of [] minutes of critical care time on this patient's care today; this time is exclusive of procedural time. Quality VTE Deep Vein Thrombosis/Pulmonary Embolism Present on Admission: No
[2021-02-14] VITALS (10 sets, daily range): BP systolic 142–172; BP diastolic 96–108; PULSE 86–114; RESP 16–18; TEMP 36.4–36.8; O2SAT 97–100
[2021-02-14] MEDS: LEVOTHYROXINE 25 MCG TABLET PO (06:08)
[2021-02-14] MEDS: PANTOPRAZOLE DR 20 MG TABLET PO (06:08)
[2021-02-14] MEDS: SODIUM CHLORIDE 0.9% 1,000 ML 100 ML IV (08:08)
[2021-02-14] MEDS: ENOXAPARIN 40 MG/0.4 ML SYRINGE SUBCUT (08:13)
--- NOTE | 2021-02-14 08:27 | PC.NURSE ---
Addendum entered by Julita Matthews R.N. 02/14/21 18:15: Report called to Blanca at [facility]. BLS to pick patient up at 1800 and she has left the building. Patients boyfriend in to drop off some items for patient earlier. Addendum entered by Julita Matthews R.N. 02/14/21 16:30: Patient given another 10mg iv dose of hydralazine for bp 163/103. She is resting supine with ns infusing at 100cc/hr Addendum entered by Julita Matthews R.N. 02/14/21 16:22: Patient continues to be cooperative and has not had any mention of suicide or ideation. She is actually smiling and interacting in conversation with staff. She will be going to [facility] and discharging from here at 1800 via BLS. Addendum entered by Julita Matthews R.N. 02/14/21 11:48: Patient has not had any suicidal ideation this morning, she is talking to Marisol administrator social welfare now. Denies pain. Original Note: Assess- Patient is alert this morning, she is awake but still sleepy. Answering questions appropriately and is getting up with one person assist to the bsc. Her behaviors have been well and she is compliant with care. Lovenox given, Dr Yoon said to hold topomax until Dr. Dewitt see's patient.
--- NOTE | 2021-02-14 08:53 | PC.NURSE ---
Pt. is sleeping
--- NOTE | 2021-02-14 09:10 | PC.NURSE ---
Pt. is resting now, Lab came to draw blood, breakfast was provided but Pt. refused, said she didn't want any. offer her oral care and bathroom but Pt said later she will let me know.
[2021-02-14 09:20] LABS: Add Manual Diff / Slide Review NO; Basophils Absolute Auto 0 /uL (0-100); Basophils Percent Auto 0.2 % (0-2); Eosinophils Absolute Auto 0 /uL (0-450); Eosinophils Percent Auto 0.1 % (2-4); Hematocrit 37.5 % (36-46); Hemoglobin 12.6 g/dL (12.0-16.0); Lymphocytes Absolute Auto 1400 /uL (1100-4500); Lymphocytes Percent Auto 11.7 % (25-40); Mean Corpuscular HGB Conc 33.7 % (30-36); Mean Corpuscular Hemoglobin 27.5 PG (26-34); Mean Corpuscular Volume 81.6 fL (80-100); Monocytes Absolute Auto 800 /uL (0-900); Monocytes Percent Auto 6.6 % (3-14); Neutrophils Absolute Auto 9500 /uL (1500-7000); Neutrophils Percent Auto 81.4 % (50-75); Platelet Count 171 X10^3/uL (150-400); Red Blood Cell Count 4.59 X10^6/uL (4.0-5.2); Red Cell Distribution Width 14.8 % (11.6-14.8); White Blood Cell Count 11.6 X10^3/uL (4.5-11.0)
[2021-02-14 09:30] LABS: Blood Urea Nitrogen 6 mg/dL (7-17); Calcium 8.6 mg/dL (8.4-10.2); Carbon Dioxide 26 mmol/L (22-32); Chloride 109 mmol/L (98-107); Estimated Glomerular Filt Rate > 60.0 mL/min (>60); Glucose 94 mg/dL (70-100); HEMOLYSIS < 15 (0-50); Potassium 3.8 mmol/L (3.4-5.1); Sodium 139 mmol/L (137-145)
--- NOTE | 2021-02-14 09:31 | PC.NURSE ---
Doctor came and talk with Pt. tolliver after 9am, nurse huyen request a blood pressure ck per 's order which I did and reported it to nurse. Pt. used the bathroom and order her lunch, now Pt. is resting.
[2021-02-14] MEDS: HYDRALAZINE 20 MG/ML VIAL 10 MG IV ×2 (09:39→16:18)
--- NOTE | 2021-02-14 10:03 | PC.NURSE ---
Pt.is laying down and is calm and talking on phone with her partner.
--- NOTE | 2021-02-14 12:18 | PC.NURSE ---
submarine worker came and talk with Pt. patel after 11am. Pt. recieved her lunch, but dosen't seem to be interested in eating at this time, Pt. is sleeping now.
--- NOTE | 2021-02-14 12:26 | CM.SWNOTE ---
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 The patient states she took 10 amitriptyline in an attempt to overdose. Precipitating Event(s) Patient had recently found a photo, dated December 2020, of her boyfriend Franko (together 2 1/2 years) with his ex and children. Patient began a line of questioning w/Franko on their ride home on 02.12.21 re this picture; Patient reports Franko 's responses made me feel like I didn't matter, patient identifies this as a trigger to suicidal thoughts and plan, patient states I felt worthless Patient Strengths Mom to 22 yo son (active duty at [employer]) and 12 yo dtr, resides at home w/patient and bf Franko. 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 Has been receiving short term counseling by Mehdi Nixon through the [facility] program ( referred by PCP Melinda Simmons) Current Behavioral Health Provider(s) Short term counseling and Include Facility, Provider, Ph. # psychiatric consult by Dr Dewitt through [facility] Psych. Hx Mental Health and Chemical H/o suicide attempt 2011 while Dependency living in [place]. Subsequent Inpatient psych stay and followed up with a pediatric social worker for counseling upon DC from inpatient. Family Hx of Behavioral Abuse Thinks cousin attempted suicide. Psychiatric Hospitalizations (date(s)/ 2011, [place]. Patient location) reports similiar trigger (I) felt belittled by my ex Psychosocial information & Support Lives w/dtr Zabrina and bf of 2 1 Systems /2 years Franko. Works fulltime in [place]. School/Work [employer] Presenting Problem Denies substance use. Legal Matters - Outstanding Issues None reported Orientation (Person/Place/Time) Oriented, some short term memory loss noted, has a difficult time re telling thoughts/events leading up this suicide attempt Stated Mood eh Affect (Congruent with Mood?) Flat Thought Content - Specify/Describe Denies Obsessions, Delusions, Hallucinations Thought Processes (Qaowtfd-Fvpelznp-Gbcm Goal directed Ivixwmfy-Ncftchfo-Ratcbbeskq- Jqwsyxtiqpyvyd-Pnrgwma-Fbjlwvfuofds- Thought Blocking) Speech (Zgpejx-Nhbx-Igehgim-Rapid-Soft- Normal Loud-Pressured) Motor (Havzla-Qpgfhrevy-Wucb-Other) Normal Insight (Vgbs-Rmhg-Aimb/Limited) Fair Judgement (Kvas-Ipjz-Pwxu/Limited) Poor Impulse Control (Adequate-Impaired) Impaired Memory (Ivavhqseq-Nslxcl-Paxubc, Very recent memory somewhat Impaired-Intact) impaired Concentration (Intact-Impaired) Intact Attention (Intact-Impaired) Intact Behavior (Appropriate-Inappropriate) Appropriate Additional Comment Patient's affect is flat. Initially, patient is not forthcoming with information. Eventually, patient able to recall that her day on Wednesday was normal at work then patient's thoughts of worthlessness, loneliness, isolation and anger increased after an arguement w/her partner; which prompted patient to hug and say good- bye to dtr and bf before injesting her amitryptyline and left over Seroquel. Suicidal Ideation (Plan) Yes Homicidal Ideation (Plan) No Intervention Discussed severity of this suicide attempt; discussed her recent dx of Bipolar II Disorder, disruption of sleep and extreme mood swings ( patient describes angry outbursts). Patient admits I need help and interested in med review, hoping to not be so angry and not have these mood swings RA Plan Patient agreeable to this PLANT WRAPPER seeking inpatient psychiatric placement MONET Medel
--- NOTE | 2021-02-14 13:07 | PC.NURSE ---
Doctor came and talk with Pt. about 12:15 or so. Pt. use bathroom, Pt. made a phone call and now Pt. is eating her lunch. Pt is calm and cooperative and alert.
--- NOTE | 2021-02-14 14:01 | P.DS_ITS ---
History of Present Illness History of Present Illness Date Patient Seen: 02/14/21 Time Patient Seen: 14:02 Chief complaint: OD/SUICIDAL THOUGHTS Narrative: History of Present Illness History of Present Illness Date Patient Seen:?02/13/21 Narrative: The patient is a 51-year-old female with a history of anemia, anxiety, asthma, depression, hypothyroidism, migraine headache, obstructive sleep apnea, who reports she has been feeling depressed.? The patient states she took 10 amitriptyline in an attempt to overdose.? Her significant other found her at home groggy.? He thought she had taken extra of her medications.? The patient remained quite lethargic and sleepy this morning.? She was brought in by her partner because of her being Somnolent.? Her partner reports the patient was triggered by Moe a picture of him with his prior and children.? They had a argument.? When he came home at 8:00 p.m. she was sleeping and looked as though she were ?blacked out drunk?.? He loud her to sleep it off however she remained minimally responsive this morning.? Patient was brought into the hospital for further evaluation.? The patient reports a history of depression, she also reports a history of suicide in 2011 where she took pills. Discharge Providers Provider Date of admission: 02/13/21 13:24 Discharge Date: 02/14/21 Primary care physician: TRENA Holguin Consults: 02/13/21 16:22 Consult to Discharge Planning Routine Comment: 02/13/21 16:25 Consult to Physician Routine Comment: Consulting Provider: Urbano Mendoza Reason for consultation: suicide attempt Has provider been notified: Yes Discharge provider: Alicia Valdez DO Summary Hospital Course Discharge Diagnosis: INTENTIONAL OVERDOSE SUICIDE IDEATION POSSIBLE UTI VERSUS PYELONEPHRITIS. DISCHARGED ON OMNICEF ANXIETY PER HISTORY HYPOTHYROIDISM FOR HISTORY Hospital Course: THIS IS A VERY PLEASANT 31-YEAR-OLD FEMALE ADMITTED TO THE HOSPITAL AFTER A FAILED SUICIDAL ATTEMPT. SHE OVERDOSED ON AMITRIPTYLINE REPORTEDLY PRIOR TO BEING TAKEN TO THE ER. WHEN ASKED WHY, SHE WAS NOT ABLE TO ELABORATE SHE LIVES AT HOME WITH HER SIGNIFICANT OTHER AND HER DAUGHTER. SHE REPORTED A PRIOR SIMILAR EPISODE WHEN SHE ATTEMPTED TO TAKE HER OWN LIFE. AT THIS TIME I FEEL SHE IS A DANGER TO HERSELF. SHE DID NOT VOICE ANY HOMICIDAL IDEATION. SHE WILL BENEFIT FROM FURTHER TREATMENT AT A PSYCHIATRY FACILITY OF NOTE, SOME PYURIA NOTED ON URINALYSIS. WILL DISCHARGE ON OMNICEF FOR A 5 DAYS COURSE Status at Discharge Cognitive/behavioral status at discharge: oriented Functional status at discharge: independent ambulation Overall status at discharge: patient is progressing back to baseline Time Spent with Patient Time spent: Greater than 30 minutes Exam Vital Signs (past 8 hours): - 02/14/21 07:15 02/14/21 09:29 02/14/21 09:39 Temperature 98.1 F Pulse Rate 91 H Respiratory Rate 16 Blood Pressure 171/104 H 163/101 H 163/101 H Pulse Oximetry 98 02/14/21 11:00 Temperature 98.3 F Pulse Rate 86 Respiratory Rate 18 Blood Pressure 167/96 H Pulse Oximetry 100 Oxygen Delivery Method Room Air Oxygen Flow Rate 0 Narrative Exam Narrative: NO ACUTE DISTRESS. PATIENT IS ALERT ORIENTED X3. VITAL SIGNS STABLE HEAD ATRAUMATIC NORMOCEPHALIC NECK : SUPPLE WITHOUT ADENOPATHY NO CAROTID BRUITS EYE: EOMI, PERRLA, NORMAL CONJUNCTIVA; NO JAUNDICE CHEST: REGULAR RATE. NO RUBS. PMI IS NON DISPLACED. NO MURMURS; NORMAL S1- S2 PULMONARY: DECREASED BS OVER THE BASES. MILD BIBASILAR CRACKLES NOTED; NO INCREASED DULLNESS TO PERCUSSION ABDOMEN: SOFT. NONTENDER. NONDISTENDED. BOWEL SOUNDS ARE PRESENT IN ALL 4 QUADRANTS. NO MASS. EXTREMITIES: NO EDEMA.. NO CYANOSIS CLUBBING NOTED. NEURO: CRANIAL NERVES 2-12 GROSSLY INTACT. NO FOCAL NEUROLOGICAL DEFICIT NOTED. MSK: NORMAL RANGE OF MOTION FOR AGE. NO JOINT EFFUSION. SKIN: NORMAL FOR ETHNICITY; NO ECCHYMOSIS. NO LESION. GOOD TURGOR.; NO RASHES : NORMAL EXTERNAL GENITALIA. PSYCH : ANXIOUS. CALM. COOPERATIVE Objective Labs Result Diagrams: 02/14/21 09:05 02/14/21 09:05 Labs: Laboratory Results - last 24 hr 02/14/21 02/14/21 09:05 09:05 WBC 11.6 H RBC 4.59 Hgb 12.6 Hct 37.5 MCV 81.6 MCH 27.5 MCHC 33.7 RDW 14.8 Plt Count 171 Neut % (Auto) 81.4 H Lymph % (Auto) 11.7 L [place] % (Auto) 6.6 Eos % (Auto) 0.1 L Baso % (Auto) 0.2 Neut # (Auto) 9500 H Lymph # (Auto) 1400 [place] # (Auto) 800 Eos # (Auto) 0 Baso # (Auto) 0 Sodium 139 Potassium 3.8 Chloride 109 H Carbon Dioxide 26 BUN 6 L Creatinine 0.75 Estimated GFR > 60.0 BUN/Creatinine Ratio 8.0 Glucose 94 Calcium 8.6 PFSH Medical History Anemia (~1998) Anxiety (~1998) Asthma Carpal tunnel syndrome (~2011) Chicken pox Degenerative disc disease (~2016) Depression (~1998) Fibroids (~2018) Headache (~2011) Heavy menstrual period (~2006) History of endometrial biopsy (01/20/21) Hypothyroidism (~2009) Insomnia Irregular menstrual cycle (~2009) Migraines (~2011) Miscarriage Sleep apnea (~2014) Thyroid nodule Vertigo (~2012) Surgical History Anesthesia History of hand surgery (~2011) History of microdiscectomy (~2016) S/P arthroscopic surgery of left knee (~1999) Family History Father Hypertension Hyperlipidemia Mother Cancer Grandfather History of heart attack History of heart disease Hypertension Grandmother Hypertension Social History household members: significant other Smoking Status: Former smoker Tobacco: How many years used: 20 quit status: has quit before alcohol intake: current substance use type: does not use Discharge Plan Discharge Plan Patient Disposition: Home Nursing Discharge Comment: PLEASE DISCHARGED TO ACCEPTING PSYCHIATRY FACILITY PER CASE MANAGEMENT Discharge orders & Medications Prescriptions: New levofloxacin 500 mg tablet 500 mg PO DAILY 5 Days Qty: 5 0RF Continued sumatriptan succinate [Imitrex] 25 mg tablet See Rx Instructions PO .COMPLEX Qty: 60 0RF Rx Instructions: take 1 tab at onset of headache; if no relief may repeat 1 tab after at least 2 hrs; max = 4 tabs/24 hr PO levothyroxine 25 mcg tablet See Rx Instructions .ROUTE .COMPLEX Qty: 90 2RF Dose Instruction: take 1 tablet by mouth once daily Rx Instructions: take 1 tablet by mouth once daily alprazolam 0.5 mg tablet 0.5 mg PO DAILY PRN (Reason: anxiety) Qty: 14 0RF omeprazole 20 mg Capsule,Delayed Release(Dr/Ec) 20 mg PO DAILY 0RF famotidine [Pepcid] 20 mg Tablet 40 mg PO DAILY 0RF Discontinued topiramate 25 mg tablet 25 mg PO .QHS Qty: 30 0RF Follow up/Referrals: Marysol Blackmon ARNP [Primary Care Provider] - Diet/Activity/Treatments Diet: Regular and Low-fat Activity: TOLERATED Discharge Data Primary Care Provider: Marysol Blackmon Quality VTE Deep Vein Thrombosis/Pulmonary Embolism Present on Admission: No
--- NOTE | 2021-02-14 14:05 | CM.DPNOTE ---
Addendum entered by Cydney Sy 02/14/21 14:41: Per Marisol, called [facility] and spoke w/Chayito Martino for 1800 burr picker BLS, voluntary, to [facility] [address], [place]. Told Chayito Martino that pt. needs to be there by 1999, and no sooner. Chayito Martino assured me 1800 would be sufficient. I was asked if pt. has insurance, and I told her pt. has [place]. Cydney Sy CM Asst. Original Note: Faxed clinicals per Marisol To [facility]; [phone]; [place] [phone] and [facility] [phone] and received fax conf. Cydney Sy CM Asst.
--- NOTE | 2021-02-14 14:50 | CM.SWNOTE ---
FOOD AND BEVERAGE COORDINATOR Note [facility] has accepted patient for voluntary admission this evening. Patient remains agreeable to plan. Details include: [facility] P# [phone] F# [phone] Intake contact: Viral Christensen provider: Renato Weston MD Nurse to Nurse report: Main number [phone] DC Summary and completed and signed Voluntary patient contract faxed by TONY Lamas. In addition, TONY Lamas kindly agreed to scheduling BLS which has now been confirmed for p/u at 1800. BLS form completed, signed by hospitalist and placed on patient's chart for BLS crew GEETA Cancino updated JW
--- NOTE | 2021-02-14 15:51 | PC.NURSE ---
Pt is calm and sleping. pt is in supine position.
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
== END 2021-02-14 18:00 | DRG 918 ==
LOC: ED 10:53 → AC 13:28
PROVIDERS: Admitting Provider Internal Medicine; Emergency Provider Emergency Medicine; PCP Registered Nurse; Referring Provider Emergency Medicine; Visit Provider Internal Medicine
DX: T43.012A Poisoning by tricyclic antidepressants, intentional self-harm, initial encounter (principal); N39.0 Urinary tract infection, site not specified; R40.0 Somnolence; Y92.009 Unspecified place in unspecified non-institutional (private) residence as the place of occurrence of the external cause; F41.9 Anxiety disorder, unspecified; F32.9 Major depressive disorder, single episode, unspecified; E03.9 Hypothyroidism, unspecified; K21.9 Gastro-esophageal reflux disease without esophagitis; Z87.891 Personal history of nicotine dependence; Z20.822 Contact with and (suspected) exposure to COVID-19
CPT/HCPCS: 36415; 80048; 80053; 80305; 80320; 80329; 81003; 81015; 81025; 84439; 84443; 85025; 87077; 87086; 87635; 93005; 93010; 96360; 96361; 99233; 99285; C9803; G0480; J0360; J1650

== ENCOUNTER → 2021-02-27 10:41 | Outpatient (CLI) | payer OTHER, SELFPAY ==
[2021-02-13 16:05] VITALS: BMI 28.6
== END ==
PROVIDERS: PCP Registered Nurse; Visit Provider Obstetrics & Gynecology
DX: R31.9 Hematuria, unspecified (principal)
CPT/HCPCS: 87086

== ENCOUNTER → 2021-04-14 15:17 | Outpatient (CLI) | payer OTHER, SELFPAY ==
[2021-02-13 16:05] VITALS: BMI 28.6
[2021-04-14 16:01] LABS: Add Manual Diff / Slide Review NO; Basophils Absolute Auto 0 /uL (0-100); Basophils Percent Auto 0.5 % (0-2); Eosinophils Absolute Auto 100 /uL (0-450); Eosinophils Percent Auto 0.8 % (2-4); Hematocrit 38.2 % (36-46); Hemoglobin 12.9 g/dL (12.0-16.0); Lymphocytes Absolute Auto 2300 /uL (1100-4500); Lymphocytes Percent Auto 26.9 % (25-40); Mean Corpuscular HGB Conc 33.7 % (30-36); Mean Corpuscular Hemoglobin 27.9 PG (26-34); Mean Corpuscular Volume 82.8 fL (80-100); Monocytes Absolute Auto 700 /uL (0-900); Monocytes Percent Auto 8.1 % (3-14); Neutrophils Absolute Auto 5400 /uL (1500-7000); Neutrophils Percent Auto 63.7 % (50-75); Platelet Count 196 X10^3/uL (150-400); Red Blood Cell Count 4.62 X10^6/uL (4.0-5.2); Red Cell Distribution Width 14.3 % (11.6-14.8); White Blood Cell Count 8.5 X10^3/uL (4.5-11.0)
[2021-04-14 16:29] LABS: Alanine Aminotransferase 23 IU/L (<35); Albumin 4.5 g/dL (3.5-5.0); Albumin Globulin Ratio 1.6 (1.0-2.8); Alkaline Phosphatase 67 U/L (38-126); Aspartate Aminotransferase 23 IU/L (14-36); BUN Creatinine Ratio 17.8 (6-22); Bilirubin Total 0.4 mg/dL (0.2-1.3); Blood Urea Nitrogen 13 mg/dL (7-17); Calcium 9.7 mg/dL (8.4-10.2); Carbon Dioxide 27 mmol/L (22-32); Chloride 103 mmol/L (98-107); Estimated Glomerular Filt Rate > 60.0 mL/min (>60); Globulin 2.9 g/dL (1.7-4.1); Glucose 110 mg/dL (70-100); HEMOLYSIS < 15 (0-50); Potassium 4.6 mmol/L (3.4-5.1); Sodium 137 mmol/L (137-145); Total Protein 7.4 g/dL (6.3-8.2)
== END ==
PROVIDERS: Family Medicine; PCP Registered Nurse; Referring Provider Registered Nurse; Visit Provider Registered Nurse
DX: F32.9 Major depressive disorder, single episode, unspecified (principal); F41.9 Anxiety disorder, unspecified; Z79.899 Other long term (current) drug therapy; D64.9 Anemia, unspecified
CPT/HCPCS: 36415; 80053; 85025

== ENCOUNTER 2021-07-13 04:07 | Emergency (ER) | payer OTHER, SELFPAY ==
[2021-02-13 16:05] VITALS: BMI 28.6
[2021-07-13] VITALS (7 sets, daily range): BP systolic 176–204; BP diastolic 97–112; PULSE 66–80; RESP 15–21; TEMP 36.3; O2SAT 97–100; BMI 28.6
--- NOTE | 2021-07-13 04:09 | ED.CHESTPAIN ---
HPI - Chest Pain General Chief Complaint: Abdominal Pain Stated Complaint: right side/rib pain x1 day Time Seen by Provider: 07/13/21 04:08 History of Present Illness HPI narrative: 51F nonsmoker with a history of bipolar and hypothyroidism presents with multiple complaints. She states that over the course of the past week she has had multiple episodes of dizziness that seemed to come out of nowhere without any obvious provocation or palliation. She denies classic vertigo and denies the sensation that the room was spinning but that she feels lightheaded and near syncopal. She denies any chest pain or shortness of breath with these occurrences, she has had no cough, hemoptysis nor nausea, vomiting or diarrhea. She states the primary reason for her visit is right-sided chest pain that has been persistent for the past 2 days. She denies any obvious provocation, palliation or radiation. She denies injury, trauma, overuse. She states she has not had any cough or wheeze. She denies any history of the same. She has had no long distance travel, history of blood clot or known cancer. Related Data Home Medications Medication Instructions Recorded Confirmed famotidine 20 mg tablet (Pepcid) 40 mg PO DAILY 02/06/21 04/14/21 Previous Rx's Medication Instructions Recorded levothyroxine 25 mcg tablet See Rx Instructions .ROUTE 12/04/20 .COMPLEX #90 tab lamotrigine 100 mg tablet 200 mg PO DAILY #180 tab 05/22/21 propranolol 20 mg tablet 40 mg PO BID #120 tab 06/10/21 alprazolam 0.5 mg tablet 0.5 mg PO DAILY PRN 30 Days #10 tab 06/25/21 hydrocodone 5 mg-acetaminophen 325 1 tab PO Q4-6H PRN #10 tab 07/13/21 mg tablet ketorolac 10 mg tablet 10 mg PO Q6H PRN #14 tab 07/13/21 lidocaine 5 % topical patch 1 patch TOP DAILY #15 each 07/13/21 (Lidoderm) Allergies Allergy/AdvReac Type Severity Reaction Status Date / Time quetiapine [From Seroquel] Allergy Severe sob Verified 04/14/21 14:51 Penicillins Allergy Intermediate Hives Verified 04/14/21 14:51 erythromycin base AdvReac Mild N/V Verified 04/14/21 14:51 Review of Systems Review of Systems Narrative: GENERAL: See HPI HEENT: Denies sinus pain, ear pain, sore throat, difficulty swallowing, dizziness. RESPIRATORY: See HPI CARDIOVASCULAR: See HPI GASTROINTESTINAL: Denies nausea, vomiting, abdominal pain, diarrhea, constipation, melena. : Denies dysuria, frequency, incontinence, hematuria, urinary retention. MUSCULOSKELETAL: denies weakness, joint pain, or bony pain SKIN: Denies rash, skin lesions, or other NEUROLOGIC: Denies weakness, headache, numbness, change in speech, confusion, seizures, incoordination. PSYCHIATRIC: No concerning psychosocial issues. 12 point review of systems is negative except for those stated above Patient History Medical History Anemia (~1998) Anxiety (~1998) Asthma Carpal tunnel syndrome (~2011) Chicken pox Degenerative disc disease (~2016) Depression (~1998) Fibroids (~2018) Headache (~2011) Heavy menstrual period (~2006) History of endometrial biopsy (01/20/21) Hypothyroidism (~2009) Insomnia Irregular menstrual cycle (~2009) Medication management Migraines (~2011) Miscarriage Sleep apnea (~2014) Thyroid nodule Vertigo (~2012) Surgical History Anesthesia History of hand surgery (~2011) History of microdiscectomy (~2016) S/P arthroscopic surgery of left knee (~1999) Family History Father Hypertension Hyperlipidemia Mother Cancer Grandfather History of heart attack History of heart disease Hypertension Grandmother Hypertension Social History household members: significant other Smoking Status: Former smoker Tobacco: How many years used: 20 quit status: has quit before alcohol intake: current substance use type: does not use Smoking Status: Former smoker alcohol intake frequency: holidays/special occasions only Substance Use Type: does not use Exam Narrative Exam Narrative: GENERAL: [51] year old patient appears stated age. Well-developed patient, in mild distress. HEAD: Atraumatic. Normocephalic. EYES: Pupils equal round and reactive. Extraocular motions intact. No scleral icterus. No injection or drainage. ENT: Nose without bleeding, purulent drainage. Throat without erythema, tonsillar hypertrophy or exudate. Airway patent. NECK: Trachea midline. Non tender CARDIOVASCULAR: Regular rate and rhythm without murmurs, gallops, or rubs. Right lateral ribs tender to palpate, no crepitance, edema, or overlying rash RESPIRATORY: Clear to auscultation. Breath sounds equal bilaterally. No wheezes, rales, or rhonchi. GASTROINTESTINAL: Abdomen soft, non-tender, nondistended. EXTREMITIES: No edema or joint tenderness. BACK: Nontender without deformity or crepitance. No flank tenderness. NEURO: AOx3. SKIN: No rash or erythema of visible areas Initial Vital Signs Initial Vital Signs: Vital Signs Pulse Rate 74 07/13/21 04:11 Pulse Oximetry 100 07/13/21 04:11 Scores HEART Score Heart Score history: Slightly Suspicious Heart Score EKG: Normal Heart Score Age: 45-64 years old Heart Score risk factors: 1-2 risk factors Heart Score troponin: < or = to normal limit Heart Score Total: 2 Course Orders Ordered: ED Orders 07/13/21 04:17 D Dimer Stat 07/13/21 04:19 Complete Blood Count AUTO DIFF Stat 07/13/21 04:20 XR chest 2V Stat EKG-12 Lead Stat 07/13/21 04:35 Comprehensive Metabolic Panel Stat NT-proBNP (BNP-Adult 18+) Stat Troponin & CK Cardiac Panel Stat Discontinued Medications Hydrocodone Bitart/Acetaminophen (Hydrocodone/Acet 5/325 Prepack) 1 bottle MISC SEEINSTR ONE Stop: 07/13/21 05:28 Last Admin: 07/13/21 05:33 Dose: 1 bottle Documented by: Sodium Chloride (Normal Saline 0.9%) 1,000 mls @ 125 mls/hr IV CONT RICHARD Last Infusion: 07/13/21 05:38 Dose: Infused Documented by: Ketorolac Tromethamine (Ketorolac 30 Mg/Ml Vial) 15 mg IV NOW ONE Stop: 07/13/21 04:18 Last Admin: 07/13/21 04:42 Dose: 15 mg Documented by: Lidocaine (Lidocaine Patch 1 Each Adh..Patch) 1 each TOP NOW ONE Stop: 07/13/21 05:12 Last Admin: 07/13/21 05:33 Dose: 1 each Documented by: Vital Signs Vital signs: Vital Signs - 8 hr 07/13/21 04:11 07/13/21 04:15 07/13/21 04:19 Temperature 97.3 F L Pulse Rate 74 80 79 Respiratory Rate 15 Blood Pressure 204/112 H 187/108 H Pulse Oximetry 100 100 100 07/13/21 04:30 07/13/21 04:31 07/13/21 05:00 Temperature Pulse Rate 71 71 66 Respiratory Rate 19 21 20 Blood Pressure 176/97 H Pulse Oximetry 98 98 99 07/13/21 05:30 Temperature Pulse Rate 70 Respiratory Rate 16 Blood Pressure Pulse Oximetry 97 MDM - Chest Pain Lab Data Result diagrams: 07/13/21 04:35 07/13/21 04:35 Labs: Lab Results 07/13/21 07/13/21 07/13/21 Range/Units 04:35 04:35 04:35 WBC 7.6 (4.5-11.0) X10^3/uL RBC 4.81 (4.0-5.2) X10^6/uL Hgb 13.5 (12.0-16.0) g/dL Hct 39.5 (36-46) % MCV 82.1 (80-100) fL MCH 28.1 (26-34) PG MCHC 34.2 (30-36) % RDW 13.1 (11.6-14.8) % Plt Count 181 (150-400) X10^3/uL Neut % (Auto) 55.4 (50-75) % Lymph % (Auto) 33.7 (25-40) % [place] % (Auto) 8.7 (3-14) % Eos % (Auto) 1.3 L (2-4) % Baso % (Auto) 0.9 (0-2) % Neut # (Auto) 4200 (7652-7481) /uL Lymph # (Auto) 2600 (0058-7859) /uL [place] # (Auto) 700 (0-900) /uL Eos # (Auto) 100 (0-450) /uL Baso # (Auto) 100 (0-100) /uL D-Dimer < 200 (<230) ng/mL Sodium 140 (137-145) mmol/L Potassium 3.9 (3.4-5.1) mmol/L Chloride 105 (98-107) mmol/L Carbon Dioxide 25 (22-32) mmol/L BUN 16 (7-17) mg/dL Creatinine 0.86 (0.52-1.04) mg/dL Estimated GFR > 60 (>60) mL/min BUN/Creatinine Ratio 18.6 (6-22) Glucose 112 H (70-100) mg/dL Calcium 8.9 (8.4-10.2) mg/dL Total Bilirubin 0.4 (0.2-1.3) mg/dL AST 34 (14-36) IU/L ALT 40 H (<35) IU/L Alkaline Phosphatase 66 (38-126) U/L Total Creatine Kinase 63 (30-135) U/L CK-MB (CK-2) TNP CK-MB (CK-2) Rel Index TNP Troponin I < 0.012 (0.01-0.034) ng/mL NT-Pro-B Natriuret Pep 23 (<125) pg/mL Total Protein 7.6 (6.3-8.2) g/dL Albumin 4.5 (3.5-5.0) g/dL Globulin 3.1 (1.7-4.1) g/dL Albumin/Globulin Ratio 1.5 (1.0-2.8) MDM Narrative Medical decision making narrative: Patient with persistent right-sided chest pain for the past few days has no ischemic changes on EKG and a negative troponin. Multiple causes of chest pain considered including [place], PE, pneumothorax, pneumonia, aortic dissection, and pleurisy. Patient reports no radiation, no diaphoresis, no provocation with exertion, and no vomiting. Pulmonary embolism considered but thought unlikely given lack of positive D-dimer, no indication for advanced imaging. Pneumonia, pneumothorax and rib fracture considered but thought unlikely given lack of supporting findings on imaging. HEART Score is 2. Return precautions discussed and questions answered to her apparent satisfaction Discharge Plan Departure Patient Disposition: Home Clinical Impression: Chest wall pain Instructions: DI for Atypical Chest Pain Activity Restrictions/Additional Instructions: *You have been diagnosed with [right-sided chest pain. As we discussed your history and physical exam are very reassuring. Your labs, EKG and chest x-ray have no significant abnormalities. There is no evidence of heart attack, blood clot, pneumonia or collapsed lung nor other diagnosis that would require a specific or immediate intervention *What to do: *Please continue to take your regular medications as directed. [ x] New medication prescriptions sent to your pharmacy: [[facility] ] [ ] New medication written as a paper prescription [ ] No new medications given *Please follow up with your primary care provider in 2-3 days, call for an appointment. Let them know you were seen in the Emergency Department and that we ask that you be seen in follow up. We will electronically transmit a record of today's note if your PCP is in our system *If you do not have a primary care provider please contact the [facility] Resource line at [phone]. They will ask some questions about your medical history and help get you set up with a doctor in the community. *Return to Emergency Department if you should have any new, worsening or concerning symptoms, such as [fever greater than 101 F, shaking chills, worsening pain, persistent vomiting or other bothersome symptoms] Prescriptions: New hydrocodone-acetaminophen 5-325 mg tablet 1 tab PO Q4-6H PRN (Reason: pain) Qty: 10 0RF ketorolac 10 mg tablet 10 mg PO Q6H PRN (Reason: pain) Qty: 14 0RF lidocaine [Lidoderm] 5 % adhesive patch,medicated 1 patch TOP DAILY Qty: 15 0RF Rx Instructions: leave on most painful area for 12 hrs No Action levothyroxine 25 mcg tablet See Rx Instructions .ROUTE .COMPLEX Qty: 90 2RF Dose Instruction: take 1 tablet by mouth once daily Rx Instructions: take 1 tablet by mouth once daily lamotrigine 100 mg tablet 200 mg PO DAILY Qty: 180 3RF Rx Instructions: Take 2 tabs by mouth daily. propranolol 20 mg tablet 40 mg PO BID Qty: 120 0RF alprazolam 0.5 mg tablet 0.5 mg PO DAILY PRN (Reason: severe insomnia) 30 Days Qty: 10 0RF Rx Instructions: Establish with new provider prior to next refill. famotidine [Pepcid] 20 mg Tablet 40 mg PO DAILY 0RF Referrals: Marysol Blackmon ARNP [Primary Care Provider] -
--- NOTE | 2021-07-13 04:20 | DI.RAD.S_ITS ---
PROCEDURE: XR CHEST 2V INDICATIONS: Short of breath TECHNIQUE: 2 views of the chest were acquired. COMPARISON: [facility], , XR CHEST 1V, 02/06/2021, 16:29. FINDINGS: Surgical changes and devices: None. Lungs and pleura: Lungs are clear. No pleural effusions or pneumothorax. Mediastinum: Mediastinal contours are normal. Heart size is normal. Bones and chest wall: No suspicious bony abnormalities. Soft tissues appear unremarkable. Clothing artifact is noted. IMPRESSION: Normal chest, with clear lungs. Note: No significant discrepancy from the preliminary report. Dictated by: Mikhail Carson M.D. on 07/13/2021 at 7:15 Approved by: Mikhail Carson M.D. on 07/13/2021 at 7:16
[2021-07-13] MEDS: SODIUM CHLORIDE 0.9% 1,000 ML 125 ML IV (04:42)
[2021-07-13] MEDS: KETOROLAC 30 MG/ML VIAL 15 MG IV (04:42)
[2021-07-13 04:48] LABS: Add Manual Diff / Slide Review NO; Basophils Absolute Auto 100 /uL (0-100); Basophils Percent Auto 0.9 % (0-2); Eosinophils Absolute Auto 100 /uL (0-450); Eosinophils Percent Auto 1.3 % (2-4); Hematocrit 39.5 % (36-46); Hemoglobin 13.5 g/dL (12.0-16.0); Lymphocytes Absolute Auto 2600 /uL (1100-4500); Lymphocytes Percent Auto 33.7 % (25-40); Mean Corpuscular HGB Conc 34.2 % (30-36); Mean Corpuscular Hemoglobin 28.1 PG (26-34); Mean Corpuscular Volume 82.1 fL (80-100); Monocytes Absolute Auto 700 /uL (0-900); Monocytes Percent Auto 8.7 % (3-14); Neutrophils Absolute Auto 4200 /uL (1500-7000); Neutrophils Percent Auto 55.4 % (50-75); Platelet Count 181 X10^3/uL (150-400); Red Blood Cell Count 4.81 X10^6/uL (4.0-5.2); Red Cell Distribution Width 13.1 % (11.6-14.8); White Blood Cell Count 7.6 X10^3/uL (4.5-11.0)
[2021-07-13 04:55] LABS: D Dimer < 200 ng/mL (<230)
[2021-07-13 05:02] LABS: Alanine Aminotransferase 40 IU/L (<35); Albumin 4.5 g/dL (3.5-5.0); Albumin Globulin Ratio 1.5 (1.0-2.8); Alkaline Phosphatase 66 U/L (38-126); Aspartate Aminotransferase 34 IU/L (14-36); BUN Creatinine Ratio 18.6 (6-22); Bilirubin Total 0.4 mg/dL (0.2-1.3); Blood Urea Nitrogen 16 mg/dL (7-17); Calcium 8.9 mg/dL (8.4-10.2); Carbon Dioxide 25 mmol/L (22-32); Chloride 105 mmol/L (98-107); Creatine Kinase 63 U/L (30-135); Estimated Glomerular Filt Rate > 60 mL/min (>60); Globulin 3.1 g/dL (1.7-4.1); Glucose 112 mg/dL (70-100); HEMOLYSIS < 15 (0-50); Potassium 3.9 mmol/L (3.4-5.1); Sodium 140 mmol/L (137-145); Total Protein 7.6 g/dL (6.3-8.2)
[2021-07-13 05:15] LABS: NT-proBNP (BNP-Adult 18+) 23 pg/mL (<125); Troponin I < 0.012 ng/mL (0.01-0.034)
[2021-07-13] MEDS: LIDOCAINE PATCH 1 EACH ADH..PATCH TOP (05:33)
[2021-07-13] MEDS: HYDROCODONE/ACET 5/325 PREPACK 1 BOTTLE MISC (05:33)
== END 2021-07-13 05:47 | disposition home or self-care (01) ==
PROVIDERS: Emergency Provider Emergency Medicine; PCP Registered Nurse
DX: R07.89 Other chest pain (principal)
CPT/HCPCS: 36415; 71046; 80053; 82550; 83880; 84484; 85025; 85379; 93005; 96374; 99284; J1885

== ENCOUNTER 2022-01-01 08:15 | Emergency (ER) | payer OTHER, SELFPAY ==
[2021-11-11 17:11] VITALS: BMI 28.6
[2022-01-01 08:30] VITALS: BP 181/103; PULSE 80; RESP 18; TEMP 36.2; O2SAT 100; BMI 29.2
[2022-01-01] MEDS: SODIUM CHLORIDE 0.9% 1,000 ML 1000 ML IV (08:50)
[2022-01-01] MEDS: KETOROLAC 30 MG/ML VIAL 15 MG IV (08:50)
--- NOTE | 2022-01-01 08:51 | ED_ITS ---
HPI - Chest Pain General Chief Complaint: Chest Pain Stated Complaint: sent by [facility] congestion,phlegm,sharp chest pain Time Seen by Provider: 01/01/22 08:37 History of Present Illness HPI narrative: 51-year-old female nonsmoker with history of hypertension presents with a chief complaint of a few days of nasal congestion, sneezing, runny nose, chest congestion and occasional cough with right-sided sharp and stabbing chest pain. She was at restless night and this pain started in his worse with deep breath, motion and palpation. It is much better now but still present with motion and palpation. She is had no fever or chills and denies any trouble swallowing. She is not short of breath but states a deep breath hurts. She denies nausea, vomiting or diarrhea. She has no abdominal pain dysuria, frequency or urgency. She denies recent travel, injury, history of blood clot, known cancer. She had tried to schedule an appointment with her primary care provider and had no openi ngs and was referred to the walk-in clinic who said they could not see her due to the nature of her complaint and sent her here. Related Data Home Medications Medication Instructions Recorded Confirmed famotidine 20 mg tablet (Pepcid) 40 mg PO DAILY 02/06/21 11/12/21 Previous Rx's Medication Instructions Recorded lamotrigine 100 mg tablet 200 mg PO DAILY #180 tabs 05/22/21 levothyroxine 25 mcg tablet 25 mcg PO DAILY #90 tabs 11/10/21 propranolol 20 mg tablet 20 mg PO QID #360 tabs 11/10/21 alprazolam 0.5 mg tablet 0.5 mg PO BEDTIME PRN insomnia #20 12/12/21 tabs cyclobenzaprine 10 mg tablet 10 mg PO TID PRN muscle spasm #14 01/01/22 tabs ketorolac 10 mg tablet 10 mg PO Q6H PRN pain #14 tabs 01/01/22 Allergies Allergy/AdvReac Type Severity Reaction Status Date / Time quetiapine [From Seroquel] Allergy Severe sob Verified 11/12/21 09:58 Penicillins Allergy Intermediate Hives Verified 11/12/21 09:58 erythromycin base AdvReac Mild N/V Verified 11/12/21 09:58 Review of Systems Review of Systems Narrative: GENERAL: See HPI HEENT: See HPI RESPIRATORY: Denies dyspnea, cough, wheezing, hemoptysis, sputum. CARDIOVASCULAR: See HPI GASTROINTESTINAL: Denies nausea, vomiting, abdominal pain, diarrhea, constipation, melena. : Denies dysuria, frequency, incontinence, hematuria, urinary retention. MUSCULOSKELETAL: denies weakness, joint pain, or bony pain SKIN: Denies rash, skin lesions, or other NEUROLOGIC: Denies weakness, headache, numbness, change in speech, confusion, seizures, incoordination. PSYCHIATRIC: No concerning psychosocial issues. 12 point review of systems is negative except for those stated above Patient History Medical History Anemia (~1998) Anxiety (~1998) Asthma Carpal tunnel syndrome (~2011) Chicken pox Degenerative disc disease (~2016) Depression (~1998) Fibroids (~2018) Headache (~2011) Heavy menstrual period (~2006) History of endometrial biopsy (01/20/21) Hypothyroidism (~2009) Insomnia Irregular menstrual cycle (~2009) Medication management Migraines (~2011) Miscarriage Obstructive sleep apnea of adult Sleep apnea (~2014) Thyroid nodule Vertigo (~2012) Surgical History Anesthesia History of hand surgery (~2011) History of microdiscectomy (~2016) S/P arthroscopic surgery of left knee (~1999) Family History Father Hypertension Hyperlipidemia Mother Cancer Grandfather History of heart attack History of heart disease Hypertension Grandmother Hypertension Social History household members: significant other Smoking Status: Former smoker Tobacco: How many years used: 20 quit status: has quit before alcohol intake: current substance use type: does not use Smoking Status: Former smoker alcohol intake frequency: holidays/special occasions only Substance Use Type: does not use Exam Narrative Exam Narrative: GENERAL: [51] year old patient appears stated age. Well-developed patient, in no obvious distress, resting comfortably HEAD: Atraumatic. Normocephalic. EYES: Pupils equal round and reactive. Extraocular motions intact. No scleral icterus. No injection or drainage. ENT: Nose without bleeding, purulent drainage. Throat without erythema, tonsillar hypertrophy or exudate. Airway patent. NECK: Trachea midline. Non tender CARDIOVASCULAR: Regular rate and rhythm without murmurs, gallops, or rubs. Right anterior chest tender to palpate, patient does confirm that this palpation worsens the pain that brought her in RESPIRATORY: Clear to auscultation. Breath sounds equal bilaterally. No wheezes, rales, or rhonchi. GASTROINTESTINAL: Abdomen soft, non-tender, nondistended. EXTREMITIES: No edema or joint tenderness. BACK: Nontender without deformity or crepitance. No flank tenderness. NEURO: AOx3. SKIN: No rash or erythema of visible areas Initial Vital Signs Initial Vital Signs: Vital Signs Temperature 97.2 F L 01/01/22 08:30 Pulse Rate 80 01/01/22 08:30 Respiratory Rate 18 01/01/22 08:30 Blood Pressure 181/103 H 01/01/22 08:30 Pulse Oximetry 100 01/01/22 08:30 Oxygen Delivery Method 01/01/22 08:30 Scores HEART Score Heart Score history: Slightly Suspicious Heart Score EKG: Normal Heart Score Age: 45-64 years old Heart Score risk factors: No known risk factors Heart Score troponin: < or = to normal limit Heart Score Total: 1 PERC Score Age greater than or equal to 50 years: No Heart rate greater than or equal to 100 bpm: No Room Air O2 Sat less than 95%: No Unilateral leg swelling: No Recent trauma or surgery: No Hemoptysis: No Prior PE or DVT: No Hormone Use: No Total PERC Score: 0 Wells' Criteria for PE Clinical signs and symptoms of DVT: No PE is #1 Dx or equally likely: No Heart rate > 100: No Immobilization at least 3 days or surg in previous 4 weeks: No History of PE or DVT: No Hemoptysis: No Malignancy w/Treatment within 6 months or palliative: No Wells' PE Score total: 0 Course Orders Ordered: ED Orders 01/01/22 08:42 Covid-19 + FLU A/B + RSV - PCR Stat 01/01/22 08:50 C-Reactive Protein Quant Stat Complete Blood Count AUTO DIFF Stat Comprehensive Metabolic Panel Stat ESR [Erythrocyte Sedimentation Rate] Stat Troponin & CK Cardiac Panel Stat 01/01/22 10:10 Chest [XR chest 2V] Stat Discontinued Medications Sodium Chloride (Normal Saline 0.9%) 1,000 mls @ 1,000 mls/hr IV BOLUS ONE Stop: 01/01/22 09:40 Last Infusion: 01/01/22 09:53 Dose: 0 mls/hr Documented By: Admin: 01/01/22 08:50 Dose: 1,000 mls/hr Documented By: SHAYY Ketorolac Tromethamine (Ketorolac 30 Mg/Ml Vial) 15 mg IV NOW ONE Stop: 01/01/22 08:42 Last Admin: 01/01/22 08:50 Dose: 15 mg Documented By: SHAYY Reevaluation(s) Reevaluation #1: Patient feeling better after above-stated therapies Vital Signs Vital signs: Vital Signs - 8 hr 01/01/22 08:30 01/01/22 09:30 01/01/22 09:00 Temperature 97.2 F L Pulse Rate 80 72 69 Respiratory Rate 18 18 18 Blood Pressure 181/103 H 138/81 133/73 Pulse Oximetry 100 98 98 Oxygen Delivery Method Room Air MDM - Chest Pain Lab Data Result diagrams: 01/01/22 08:50 01/01/22 08:50 Labs: Lab Results 01/01/22 01/01/22 01/01/22 Range/Units 08:42 08:50 08:50 WBC (4.5-11.0) X10^3/uL RBC (4.0-5.2) X10^6/uL Hgb (12.0-16.0) g/dL Hct (36-46) % MCV (80-100) fL MCH (26-34) PG MCHC (30-36) % RDW (11.6-14.8) % Plt Count (150-400) X10^3/uL Neut % (Auto) (50-75) % Lymph % (Auto) (25-40) % [place] % (Auto) (3-14) % Eos % (Auto) (2-4) % Baso % (Auto) (0-2) % Neut # (Auto) (7387-2901) /uL Lymph # (Auto) (1029-2402) /uL [place] # (Auto) (0-900) /uL Eos # (Auto) (0-450) /uL Baso # (Auto) (0-100) /uL ESR 9 (0-20) MM/HR Sodium (137-145) mmol/L Potassium (3.4-5.1) mmol/L Chloride (98-107) mmol/L Carbon Dioxide (22-32) mmol/L BUN (7-17) mg/dL Creatinine (0.52-1.04) mg/dL Estimated GFR (>60) mL/min BUN/Creatinine Ratio (6-22) Glucose (70-100) mg/dL Calcium (8.4-10.2) mg/dL Total Bilirubin (0.2-1.3) mg/dL AST (14-36) IU/L ALT (<35) IU/L Alkaline Phosphatase (38-126) U/L Total Creatine Kinase (30-135) U/L CK-MB (CK-2) CK-MB (CK-2) Rel Index Troponin I (0.01-0.034) ng/mL C-Reactive Protein 0.5 (<1.0) mg/dL Total Protein (6.3-8.2) g/dL Albumin (3.5-5.0) g/dL Globulin (1.7-4.1) g/dL Albumin/Globulin Ratio (1.0-2.8) SARS-CoV-2 (PCR) Negative (Negative) Influenza A (RT-PCR) Flu a negative (NEGATIVE) Influenza B (RT-PCR) Flu b negative (NEGATIVE) RSV (PCR) Negative (Negative) 01/01/22 01/01/22 Range/Units 08:50 08:50 WBC 8.4 (4.5-11.0) X10^3/uL RBC 5.03 (4.0-5.2) X10^6/uL Hgb 14.0 (12.0-16.0) g/dL Hct 41.7 (36-46) % MCV 82.9 (80-100) fL MCH 27.8 (26-34) PG MCHC 33.5 (30-36) % RDW 13.4 (11.6-14.8) % Plt Count 214 (150-400) X10^3/uL Neut % (Auto) 69.3 (50-75) % Lymph % (Auto) 20.5 L (25-40) % [place] % (Auto) 8.0 (3-14) % Eos % (Auto) 1.6 L (2-4) % Baso % (Auto) 0.6 (0-2) % Neut # (Auto) 5800 (5004-4114) /uL Lymph # (Auto) 1700 (3993-7568) /uL [place] # (Auto) 700 (0-900) /uL Eos # (Auto) 100 (0-450) /uL Baso # (Auto) 100 (0-100) /uL ESR (0-20) MM/HR Sodium 141 (137-145) mmol/L Potassium 4.2 (3.4-5.1) mmol/L Chloride 101 (98-107) mmol/L Carbon Dioxide 29 (22-32) mmol/L BUN 12 (7-17) mg/dL Creatinine 0.84 (0.52-1.04) mg/dL Estimated GFR > 60 (>60) mL/min BUN/Creatinine Ratio 14.3 (6-22) Glucose 113 H (70-100) mg/dL Calcium 9.4 (8.4-10.2) mg/dL Total Bilirubin 0.6 (0.2-1.3) mg/dL AST 35 (14-36) IU/L ALT 60 H (<35) IU/L Alkaline Phosphatase 87 (38-126) U/L Total Creatine Kinase 57 (30-135) U/L CK-MB (CK-2) TNP CK-MB (CK-2) Rel Index TNP Troponin I < 0.012 (0.01-0.034) ng/mL C-Reactive Protein (<1.0) mg/dL Total Protein 8.1 (6.3-8.2) g/dL Albumin 4.7 (3.5-5.0) g/dL Globulin 3.4 (1.7-4.1) g/dL Albumin/Globulin Ratio 1.4 (1.0-2.8) SARS-CoV-2 (PCR) (Negative) Influenza A (RT-PCR) (NEGATIVE) Influenza B (RT-PCR) (NEGATIVE) RSV (PCR) (Negative) Imaging Data Chest x-ray: Radiologist's Impression: [address] [address] XRay Report Signed Patient: Marybel Saucedo MR#: [id number] : 1970 Acct:[id number] Age/Sex: 51 / F Date of Service: 07/13/21 Loc: ED Accession Number: [id number] ?? Procedure: XR chest 2V Ordering Provider: Ronald Andujar D.O. PROCEDURE:? XR CHEST 2V ? INDICATIONS:? Short of breath ? TECHNIQUE:? 2 views of the chest were acquired.? ? COMPARISON:? [facility], CR, XR CHEST 1V, 02/06/2021, 16:29. ? FINDINGS:? ? Surgical changes and devices:? None.? ? Lungs and pleura:? Lungs are clear.? No pleural effusions or pneumothorax.? ? Mediastinum:? Mediastinal contours are normal.? Heart size is normal.? ? Bones and chest wall:? No suspicious bony abnormalities.? Soft tissues appear unremarkable.? Clothing artifact is noted. ? ? ? IMPRESSION:? Normal chest, with clear lungs. ? ? Note: No significant discrepancy from the preliminary report. ? ? Dictated by: Mikhail Carson M.D. on 07/13/2021 at 7:15 ? ? Approved by: Mikhail Carson M.D. on 07/13/2021 at 7:16 MDM Narrative Medical decision making narrative: Multiple etiologies for patient's symptoms considered including: [pneumonia vs. PTX vs. PE vs. other PE considered unlikely given low wells and negative PERC. Costello's PE. No need for DDimer or indication for advanced imaging. Multiple causes of chest pain considered including SC, PE, pneumothorax, pneumonia, aortic dissection, and pleurisy. Patient reports no radiation, no diaphoresis, no provocation with exertion, and no vomiting Patient is at upper respiratory symptoms including cough along with nasal congestion and sneezing, most likely viral upper respiratory infection and inflammatory response as a consequence. Patient's symptoms improved over duration of stay with above-stated therapies. Findings and discharge diagnosis discussed with patient/family followed by verbalization of understanding Return precautions discussed with patient/family whom verbalize understanding. Discharge Plan Departure Patient Disposition: Home Clinical Impression: Atypical chest pain Instructions: DI for Atypical Chest Pain Activity Restrictions/Additional Instructions: *You have been diagnosed with [atypical chest pain. As we discussed your history and physical exam are very reassuring as are labs, imaging and swabs. There is no indication of heart attack, blood clot, pneumonia or other significant diagnosis that requires a specific or immediate intervention] *What to do: *Please continue to take your regular medications as directed. [x ] New medication prescriptions sent to your pharmacy: [[facility] ] [ ] New medication written as a paper prescription [ ] No new medications given *Please follow up with your primary care provider in 2-3 days, call for an appointment. Let them know you were seen in the Emergency Department and that we ask that you be seen in follow up. We will electronically transmit a record of today's note if your PCP is in our system *Return to Emergency Department if you should have any new, worsening or concerning symptoms, such as [fever greater than 101 F, shaking chills, worsening pain, persistent vomiting or other bothersome symptoms] Prescriptions: New cyclobenzaprine 10 mg tablet 10 mg PO TID PRN (Reason: muscle spasm) Qty: 14 0RF ketorolac 10 mg tablet 10 mg PO Q6H PRN (Reason: pain) Qty: 14 0RF No Action lamotrigine 100 mg tablet 200 mg PO DAILY Qty: 180 3RF Rx Instructions: Take 2 tabs by mouth daily. propranolol 20 mg tablet 20 mg PO QID Qty: 360 4RF levothyroxine 25 mcg tablet 25 mcg PO DAILY Qty: 90 11RF alprazolam 0.5 mg tablet 0.5 mg PO BEDTIME PRN (Reason: insomnia) Qty: 20 0RF Rx Instructions: Limit use. Caution regarding poss sedation. famotidine [Pepcid] 20 mg Tablet 40 mg PO DAILY Referrals: Marlene Bradford DO [Primary Care Provider] -
[2022-01-01 09:00] VITALS: BP 133/73; PULSE 69; RESP 18; O2SAT 98
[2022-01-01 09:06] LABS: Add Manual Diff / Slide Review NO; Basophils Absolute Auto 100 /uL (0-100); Basophils Percent Auto 0.6 % (0-2); Eosinophils Absolute Auto 100 /uL (0-450); Eosinophils Percent Auto 1.6 % (2-4); Hematocrit 41.7 % (36-46); Lymphocytes Absolute Auto 1700 /uL (1100-4500); Lymphocytes Percent Auto 20.5 % (25-40); Mean Corpuscular HGB Conc 33.5 % (30-36); Mean Corpuscular Hemoglobin 27.8 PG (26-34); Mean Corpuscular Volume 82.9 fL (80-100); Monocytes Absolute Auto 700 /uL (0-900); Neutrophils Absolute Auto 5800 /uL (1500-7000); Neutrophils Percent Auto 69.3 % (50-75); Platelet Count 214 X10^3/uL (150-400); Red Blood Cell Count 5.03 X10^6/uL (4.0-5.2); Red Cell Distribution Width 13.4 % (11.6-14.8); White Blood Cell Count 8.4 X10^3/uL (4.5-11.0)
[2022-01-01 09:18] LABS: Alanine Aminotransferase 60 IU/L (<35); Albumin 4.7 g/dL (3.5-5.0); Albumin Globulin Ratio 1.4 (1.0-2.8); Alkaline Phosphatase 87 U/L (38-126); Aspartate Aminotransferase 35 IU/L (14-36); BUN Creatinine Ratio 14.3 (6-22); Bilirubin Total 0.6 mg/dL (0.2-1.3); Blood Urea Nitrogen 12 mg/dL (7-17); Calcium 9.4 mg/dL (8.4-10.2); Carbon Dioxide 29 mmol/L (22-32); Chloride 101 mmol/L (98-107); Creatine Kinase 57 U/L (30-135); Estimated Glomerular Filt Rate > 60 mL/min (>60); Globulin 3.4 g/dL (1.7-4.1); Glucose 113 mg/dL (70-100); HEMOLYSIS < 15 (0-50); Potassium 4.2 mmol/L (3.4-5.1); Sodium 141 mmol/L (137-145); Total Protein 8.1 g/dL (6.3-8.2)
[2022-01-01 09:21] LABS: C-Reactive Protein Quant 0.5 mg/dL (<1.0)
[2022-01-01 09:29] LABS: Erythrocyte Sedimentation Rate 9 MM/HR (0-20); Troponin I < 0.012 ng/mL (0.01-0.034)
[2022-01-01 09:30] VITALS: BP 138/81; PULSE 72; RESP 18; O2SAT 98
[2022-01-01 09:53] LABS: Influenza A - CEPHEID Flu A NEGATIVE (NEGATIVE); Influenza B - CEPHEID Flu B NEGATIVE (NEGATIVE); Respiratory Syncytial Virus Negative (Negative)
[2022-01-01 09:56] LABS: COVID-19 CEPHEID 4-PLEX PCR Negative (Negative)
[2022-01-01 10:00] VITALS: BP 140/72; PULSE 70; RESP 18; O2SAT 98
--- NOTE | 2022-01-01 10:10 | DI.RAD.S_ITS ---
PROCEDURE: XR CHEST 2V INDICATIONS: chest pain, cough, congestion, R upper chest TECHNIQUE: 2 views of the chest were acquired. COMPARISON: Located Within [facility], CR, XR CHEST 2V, 07/13/2021, 4:10. FINDINGS: Surgical changes and devices: None. Lungs and pleura: Lungs are clear. No pleural effusions or pneumothorax. Mediastinum: Mediastinal contours are normal. Heart size is normal. Bones and chest wall: No suspicious bony abnormalities. Soft tissues appear unremarkable. IMPRESSION: No acute cardiopulmonary abnormality. Dictated by: Zackery Marroquin M.D. on 01/01/2022 at 10:34 Approved by: Zackery Marroquin M.D. on 01/01/2022 at 10:35
[2022-01-01 11:03] VITALS: BP 130/74; PULSE 69; RESP 18; O2SAT 98
== END 2022-01-01 11:08 | disposition home or self-care (01) ==
PROVIDERS: Emergency Provider Emergency Medicine; PCP Family Medicine
DX: R07.89 Other chest pain (principal); R06.02 Shortness of breath; Z20.822 Contact with and (suspected) exposure to COVID-19
CPT/HCPCS: 0241U; 36415; 71046; 80053; 82550; 84484; 85025; 85651; 86140; 96361; 96374; 99284; J1885

== ENCOUNTER 2022-08-17 07:08 | Emergency (ER) | payer OTHER, SELFPAY ==
[2021-11-11 17:11] VITALS: BMI 28.6
[2022-08-17 07:16] VITALS: BP 158/98; PULSE 65; RESP 16; TEMP 36.6; O2SAT 100; BMI 29.6
--- NOTE | 2022-08-17 07:58 | ED.ABDPAIN ---
HPI - Abdominal Pain General Chief Complaint: Abdominal Pain Stated Complaint: rt side abd pain, chills and nausea Time Seen by Provider: 08/17/22 07:54 History of Present Illness HPI narrative: Patient drove herself here for complains of right side abdominal pain that started slowly 4 days ago on . Has had chills and nausea but no vomiting. No urinary complaints. She still has her gallbladder and appendix. No diarrhea. Pain radiates to the right side/flank area. However she has more pain right lower quadrant. Pain is worse with eating however. Worse with movement. Related Data Previous Rx's Medication Instructions Recorded levothyroxine 25 mcg tablet 25 mcg PO DAILY #90 tabs 11/10/21 propranolol 20 mg tablet 20 mg PO QID #360 tabs 11/10/21 ketorolac 10 mg tablet 10 mg PO Q6H PRN pain #14 tabs 01/01/22 lamotrigine 200 mg tablet 200 mg PO DAILY #90 tabs 05/08/22 alprazolam 0.5 mg tablet See Rx Instructions .Route 07/10/22 .COMPLEX #15 tabs ciprofloxacin HCl 500 mg tablet 500 mg PO BID #14 tabs 08/17/22 (Cipro) metronidazole 500 mg tablet 500 mg PO TID #21 tabs 08/17/22 Allergies Allergy/AdvReac Type Severity Reaction Status Date / Time quetiapine [From Seroquel] Allergy Severe sob Verified 01/09/22 15:03 Penicillins Allergy Intermediate Hives Verified 01/09/22 15:03 erythromycin base AdvReac Mild N/V Verified 01/09/22 15:03 Review of Systems Review of Systems Narrative: GENERAL: Positive chills, negative fatigue, malaise, fever, sweats. HEENT: negative sinus pain, ear pain, sore throat RESPIRATORY: negative dyspnea, cough CARDIOVASCULAR: negative chest pain, palpitations GASTROINTESTINAL: Positive nausea, negative vomiting, positive abdominal pain : negative dysuria, frequency, hematuria MUSCULOSKELETAL: negative muscle or bony pain SKIN: negative rash, skin lesions NEUROLOGIC: negative weakness, numbness ROS Unobtainable: All systems reviewed & are unremarkable except as noted in HPI and below Patient History Medical History Anemia (~1998) Anxiety (~1998) Asthma Carpal tunnel syndrome (~2011) Chicken pox Degenerative disc disease (~2016) Depression (~1998) Fibroids (~2018) Headache (~2011) Heavy menstrual period (~2006) History of endometrial biopsy (01/20/21) Hypothyroidism (~2009) Insomnia Irregular menstrual cycle (~2009) Medication management Migraines (~2011) Miscarriage Obstructive sleep apnea of adult Sleep apnea (~2014) Thyroid nodule Vertigo (~2012) Surgical History Anesthesia History of hand surgery (~2011) History of microdiscectomy (~2016) S/P arthroscopic surgery of left knee (~1999) Family History Father Hypertension Hyperlipidemia Mother Cancer Grandfather History of heart attack History of heart disease Hypertension Grandmother Hypertension Social History household members: significant other Smoking Status: Former smoker Tobacco: How many years used: 20 quit status: has quit before alcohol intake: current substance use type: does not use Smoking Status: Former smoker alcohol intake frequency: holidays/special occasions only Substance Use Type: does not use Exam Narrative Exam Narrative: GENERAL: in no distress, not toxic not dyspneic HEAD: Normocephalic. EYES: Pupils equal round ENT: Mucous membranes moist. NECK: Trachea midline. CARDIOVASCULAR: Regular rate and rhythm without murmurs RESPIRATORY: Clear to auscultation. Breath sounds equal bilaterally. No wheezes, rales, or rhonchi. GASTROINTESTINAL: Abdomen soft, reproducible right upper and right lower quadrant tenderness. Negative Kim's sign. Positive McBurney point tenderness. No CVA tenderness. Bowel sounds are present. No pain out of proportion to exam. No peritoneal signs. Negative psoas test negative obturator test EXTREMITIES: No gross deformities. BACK: No flank tenderness. NEURO: AOx4. SKIN: Warm and dry PSYCH: Not anxious, is cooperative Initial Vital Signs Initial Vital Signs: Vital Signs Temperature 97.8 F 08/17/22 07:16 Pulse Rate 65 08/17/22 07:16 Respiratory Rate 16 08/17/22 07:16 Blood Pressure 158/98 H 08/17/22 07:16 Pulse Oximetry 100 08/17/22 07:16 Oxygen Delivery Method Room Air 08/17/22 07:16 Course Orders Ordered: Discontinued Medications Ciprofloxacin (Ciprofloxacin 250 Mg Tablet) 500 mg PO NOW ONE Stop: 08/17/22 09:28 Last Admin: 08/17/22 09:34 Dose: 500 mg Documented By: BARBARA Sodium Chloride (Normal Saline 0.9%) 500 mls @ 1,000 mls/hr IV BOLUS ONE Stop: 08/17/22 08:27 Last Infusion: 08/17/22 09:07 Dose: 0 mls/hr Documented By: Admin: 08/17/22 08:42 Dose: 1,000 mls/hr Documented By: BARBARA Metronidazole (Metronidazole 500 Mg Tablet) 500 mg PO NOW ONE Stop: 08/17/22 09:28 Last Admin: 08/17/22 09:35 Dose: 500 mg Documented By: BARBARA Ondansetron HCl (Ondansetron 4 Mg/2 Ml Inj) 4 mg IV NOW PRN PRN Reason: Nausea And Vomiting Last Admin: 08/17/22 08:41 Dose: 4 mg Documented By: BARBARA Vital Signs Vital signs: Vital Signs - 8 hr 08/17/22 07:16 Temperature 97.8 F Pulse Rate 65 Respiratory Rate 16 Blood Pressure 158/98 H Pulse Oximetry 100 Oxygen Delivery Method Room Air MDM - Abdominal Pain Lab Data 08/17/22 08:45 08/17/22 07:30 Labs: Lab Results 08/17/22 08/17/22 Range/Units 07:30 08:45 WBC 6.7 (4.5-11.0) X10^3/uL RBC 4.58 (4.0-5.2) X10^6/uL Hgb 13.0 (12.0-16.0) g/dL Hct 37.9 (36-46) % MCV 82.6 (80-100) fL MCH 28.3 (26-34) PG MCHC 34.3 (30-36) % RDW 13.2 (11.6-14.8) % Plt Count 211 (150-400) X10^3/uL Neut % (Auto) 59.5 (50-75) % Lymph % (Auto) 30.1 (25-40) % [place] % (Auto) 8.2 (3-14) % Eos % (Auto) 1.4 L (2-4) % Baso % (Auto) 0.8 (0-2) % Neut # (Auto) 4000 (1076-4678) /uL Lymph # (Auto) 2000 (2564-3784) /uL [place] # (Auto) 500 (0-900) /uL Eos # (Auto) 100 (0-450) /uL Baso # (Auto) 100 (0-100) /uL Sodium 137 (137-145) mmol/L Potassium 4.2 (3.4-5.1) mmol/L Chloride 102 (98-107) mmol/L Carbon Dioxide 27 (22-32) mmol/L BUN 11 (7-17) mg/dL Creatinine 0.78 (0.52-1.04) mg/dL Estimated GFR > 60 (>60) mL/min BUN/Creatinine Ratio 14.1 (6-22) Glucose 113 H (70-100) mg/dL Calcium 9.3 (8.4-10.2) mg/dL Total Bilirubin 0.8 (0.2-1.3) mg/dL AST 54 H (14-36) IU/L ALT 105 H (<35) IU/L Alkaline Phosphatase 86 (38-126) U/L Total Protein 7.9 (6.3-8.2) g/dL Albumin 4.4 (3.5-5.0) g/dL Globulin 3.5 (1.7-4.1) g/dL Albumin/Globulin Ratio 1.3 (1.0-2.8) Lipase 78 (23-300) U/L Point of care testing: Point of Care Testing Test Results Negative Urine Dip Bedside Urine Glucose Negative Bedside Urine Bilirubin - Negative Bedside Urine Ketone - Negative Urine Specific [place] 1.030 Bedside Urine Occult Blood - Negative Bedside Urine pH 6.0 Bedside Urine Protein - Negative Bedside Urine Urobilinogen - Negative Bedside Urine Nitrite - Negative Bedside Urine Leukocytes - Negative Esterase Imaging Data CT scan - abdomen/pelvis: Radiologist's Impression: [address] [id number] Scan ReportSigned Patient: Marybel Saucedo CMR#: [id number]: [id number]:[id number]/Sex: 52 / FDate of Service: 08/17/22Loc: EDAccession Number: [id number] Procedure: CT abdomen pelvis w con Ordering Provider: Torsten Garza MD PROCEDURE: CT ABDOMEN PELVIS W CON INDICATIONS: IV contrast only/right side pain TECHNIQUE: After the administration of IV contrast, axial sections were acquired from the lung bases to the pubic symphysis. Coronal and sagittal reformats were performed. For radiation dose reduction, the following was used: automated exposure control, adjustment of mA and/or kV according to patient size. COMPARISON: None. FINDINGS: Image quality: Excellent. Lung bases: Unremarkable. Heart: No significant findings. ABDOMEN: Liver: Diffuse hepatic steatosis is present. Focal low-attenuation focus measuring 6 mm is present in the lateral right hepatic lobe series 2, image 23. Gallbladder: Unremarkable. Biliary ducts: Unremarkable. Pancreas: Unremarkable. Spleen: Unremarkable. Adrenal Glands: Unremarkable. Kidneys and Ureters: Unremarkable. Stomach and Bowel: Stomach, small bowel loops, and colon are nonobstructive. There is mild appearance of fat stranding adjacent to the ascending colon. Mild appearance of colonic thickening. No abscess, free fluid or free air. It is superior to the appendix and the appendix is normal. Colonic diverticula are present. Large hiatal hernia. Ventral Wall: No hernia. Abdominal Nodes: No retroperitoneal or mesenteric adenopathy by size criteria. Vessels: Aorta and inferior vena cava are normal in size. PELVIS: Pelvic Organs: Unremarkable. Bladder: Unremarkable. Pelvic Nodes: No enlarged lymph nodes. Miscellaneous: No inguinal hernias are seen. Bones: Unremarkable. IMPRESSION: Pericolonic stranding a mild appearance of thickening within the ascending colon most suggestive of colitis secondary to diverticulitis. No abscess or free fluid/free air. Appendix is normal. Diffuse hepatic steatosis. 6 mm focus of low attenuation within the liver likely simple cyst. Dictated by: Luann Limon M.D. on 08/17/2022 at 9:03 Approved by: Luann Limon M.D. on 08/17/2022 at 9:06 [facility] Narrative Medical decision making narrative: Patient drove herself here for complains of right side abdominal pain that started slowly 4 days ago on . Has had chills and nausea but no vomiting. No urinary complaints. She still has her gallbladder and appendix. No diarrhea. Pain radiates to the right side/flank area. However she has more pain right lower quadrant. Pain is worse with eating however. Worse with movement. After history and exam CBC CMP urinalysis lipase CT abdomen pelvis normal saline Patient does not want anything for pain at this time MDM CC: Right-sided abdominal pain Complicating co-morbidities: None Data collected from: Patient Medical records reviewed: No recent visits for this complaint Differential considered: Includes but not limited to appendicitis cholecystitis bowel obstruction UTI kidney stone pyelonephritis Exam documented above, pertinent findings include: Tender McBurney point Lab Test results independently reviewed as above. Pertinent findings: WBC 6.7 sodium 137 potassium 4.2 GFR greater than 60 AST 54 ALT 105 Independently reviewed EKG normal sinus rhythm rate 60 normal EKG Imaging studies independently reviewed: CT abdomen pelvis ascending colon diverticulitis Consultations: None indicated at this time Treatments: Normal saline Zofran Cipro Flagyl Re-evaluations: 9:30 a.m.. Reviewed results with patient. Patient states pain is controlled does not want anything for pain. Reviewed with her diverticulitis finding. Antibiotics have started. Referral for colonoscopy provider given. She states her last colonoscopy was 2007. She agrees with treatment plan. Return precautions reviewed with her. She desires discharge home. Discussion: Appropriate for discharge home. Laboratory studies and imaging otherwise reassuring. Exam is reassuring as well. Pain is controlled. Antibiotics have been started. Referral for colonoscopy provided. Return precautions reviewed with her. She desires discharge home. Not toxic at discharge. Liver enzymes reviewed. Nonspecific at this time. Patient tenderness on right side likely due to diverticulitis. CT reassuring regarding liver and gallbladder. White cell count not elevated. Clinically not cholecystitis or gallbladder/liver origin of patient's pain. This may be due to medications Diagnosis: Acute diverticulitis Discharge Plan Departure Patient Disposition: Home Clinical Impression: Diverticulitis Instructions: DI for Diverticulitis, DI for Diverticulosis Activity Restrictions/Additional Instructions: Prescription antibiotics have been prescribed for you. Be sure to continue those today and complete full course. Please call Dr. Frey with General surgery tomorrow to schedule for outpatient colonoscopy. Please reviewed literature given to you regarding your diagnosis of diverticulitis and diverticulosis. Keep well hydrated. Return if worse if any questions or concerns. May continue ibuprofen or Tylenol for pain. Work note has been provided for you for tomorrow. Prescriptions: New metronidazole 500 mg tablet 500 mg PO TID Qty: 21 0RF ciprofloxacin HCl [Cipro] 500 mg tablet 500 mg PO BID Qty: 14 0RF No Action propranolol 20 mg tablet 20 mg PO QID Qty: 360 4RF levothyroxine 25 mcg tablet 25 mcg PO DAILY Qty: 90 11RF lamotrigine 200 mg tablet 200 mg PO DAILY Qty: 90 0RF alprazolam 0.5 mg tablet See Rx Instructions .ROUTE .COMPLEX Qty: 15 0RF Rx Instructions: Take 1 tab by mouth at bedtime as needed for insomnia ketorolac 10 mg tablet 10 mg PO Q6H PRN (Reason: pain) Qty: 14 0RF Referrals: Leona Frey MD [Physician] - Marlene Bradford DO [Primary Care Provider] - Stand Alone Forms: Patient Portal/API, Work Release Note
[2022-08-17 08:13] LABS: Alanine Aminotransferase 105 IU/L (<35); Albumin 4.4 g/dL (3.5-5.0); Albumin Globulin Ratio 1.3 (1.0-2.8); Alkaline Phosphatase 86 U/L (38-126); Aspartate Aminotransferase 54 IU/L (14-36); BUN Creatinine Ratio 14.1 (6-22); Bilirubin Total 0.8 mg/dL (0.2-1.3); Blood Urea Nitrogen 11 mg/dL (7-17); Calcium 9.3 mg/dL (8.4-10.2); Carbon Dioxide 27 mmol/L (22-32); Chloride 102 mmol/L (98-107); Estimated Glomerular Filt Rate > 60 mL/min (>60); Globulin 3.5 g/dL (1.7-4.1); Glucose 113 mg/dL (70-100); HEMOLYSIS 48 (0-50); Lipase 78 U/L (23-300); Potassium 4.2 mmol/L (3.4-5.1); Sodium 137 mmol/L (137-145); Total Protein 7.9 g/dL (6.3-8.2)
[2022-08-17] MEDS: ONDANSETRON 4 MG/2 ML INJ IV (08:41)
[2022-08-17] MEDS: SODIUM CHLORIDE 0.9% 500 ML 1000 ML IV (08:42)
[2022-08-17 08:48] VITALS: PULSE 59; O2SAT 91
[2022-08-17 08:49] VITALS: BP 128/83; PULSE 63; O2SAT 94
[2022-08-17 09:00] VITALS: BP 124/76; PULSE 64; O2SAT 99
[2022-08-17 09:07] LABS: Add Manual Diff / Slide Review NO; Basophils Absolute Auto 100 /uL (0-100); Basophils Percent Auto 0.8 % (0-2); Eosinophils Absolute Auto 100 /uL (0-450); Eosinophils Percent Auto 1.4 % (2-4); Hematocrit 37.9 % (36-46); Lymphocytes Absolute Auto 2000 /uL (1100-4500); Lymphocytes Percent Auto 30.1 % (25-40); Mean Corpuscular HGB Conc 34.3 % (30-36); Mean Corpuscular Hemoglobin 28.3 PG (26-34); Mean Corpuscular Volume 82.6 fL (80-100); Monocytes Absolute Auto 500 /uL (0-900); Monocytes Percent Auto 8.2 % (3-14); Neutrophils Absolute Auto 4000 /uL (1500-7000); Neutrophils Percent Auto 59.5 % (50-75); Platelet Count 211 X10^3/uL (150-400); Red Blood Cell Count 4.58 X10^6/uL (4.0-5.2); Red Cell Distribution Width 13.2 % (11.6-14.8); White Blood Cell Count 6.7 X10^3/uL (4.5-11.0)
[2022-08-17 09:30] VITALS: PULSE 65; O2SAT 98
[2022-08-17 09:31] VITALS: BP 137/80; PULSE 64; O2SAT 98
[2022-08-17] MEDS: CIPROFLOXACIN 250 MG TABLET 500 MG PO (09:34)
[2022-08-17] MEDS: metroNIDAZOLE 500 MG TABLET PO (09:35)
== END 2022-08-17 09:41 | disposition home or self-care (01) ==
PROVIDERS: Emergency Provider Emergency Medicine; PCP Family Medicine
DX: K57.92 Diverticulitis of intestine, part unspecified, without perforation or abscess without bleeding (principal); R11.0 Nausea; Z79.899 Other long term (current) drug therapy
CPT/HCPCS: 74177; 80053; 81003; 81025; 83690; 85025; 93005; 96374; 99284; J2405

== ENCOUNTER → 2022-09-26 09:33 | Outpatient (CLI) | payer OTHER, SELFPAY ==
[2021-11-11 17:11] VITALS: BMI 28.6
[2022-09-26 10:33] LABS: Thyroid Stimulating Hormone 1.13 uIU/mL (0.47-4.68)
== END ==
PROVIDERS: PCP Family Medicine; Referring Provider Family Medicine; Visit Provider Family Medicine
DX: E03.9 Hypothyroidism, unspecified (principal)
CPT/HCPCS: 36415; 84443

== ENCOUNTER 2022-10-13 06:41 | Emergency (ER) | payer OTHER, SELFPAY ==
[2021-11-11 17:11] VITALS: BMI 28.6
[2022-10-13] VITALS (15 sets, daily range): BP systolic 123–138; BP diastolic 70–77; PULSE 52–67; RESP 18; TEMP 36.5; O2SAT 96–100; BMI 27.8
[2022-10-13 07:21] LABS: Add Manual Diff / Slide Review NO; Basophils Absolute Auto 100 /uL (0-100); Eosinophils Absolute Auto 100 /uL (0-450); Eosinophils Percent Auto 1.4 % (2-4); Hematocrit 41.1 % (36-46); Hemoglobin 14.1 g/dL (12.0-16.0); Lymphocytes Absolute Auto 2400 /uL (1100-4500); Lymphocytes Percent Auto 34.9 % (25-40); Mean Corpuscular HGB Conc 34.3 % (30-36); Mean Corpuscular Hemoglobin 28.6 PG (26-34); Mean Corpuscular Volume 83.5 fL (80-100); Monocytes Absolute Auto 500 /uL (0-900); Monocytes Percent Auto 7.3 % (3-14); Neutrophils Absolute Auto 3900 /uL (1500-7000); Neutrophils Percent Auto 55.4 % (50-75); Platelet Count 161 X10^3/uL (150-400); Red Blood Cell Count 4.92 X10^6/uL (4.0-5.2); Red Cell Distribution Width 13.5 % (11.6-14.8)
[2022-10-13 07:26] LABS: Alanine Aminotransferase 46 IU/L (<35); Albumin 4.5 g/dL (3.5-5.0); Albumin Globulin Ratio 1.6 (1.0-2.8); Alkaline Phosphatase 69 U/L (38-126); Aspartate Aminotransferase 54 IU/L (14-36); Bilirubin Total 0.5 mg/dL (0.2-1.3); Blood Urea Nitrogen 15 mg/dL (7-17); Carbon Dioxide 29 mmol/L (22-32); Chloride 103 mmol/L (98-107); Estimated Glomerular Filt Rate > 60 mL/min (>60); Globulin 2.8 g/dL (1.7-4.1); Glucose 110 mg/dL (70-100); HEMOLYSIS < 15 (0-50); Lipase 252 U/L (23-300); Potassium 4.8 mmol/L (3.4-5.1); Sodium 139 mmol/L (137-145); Total Protein 7.3 g/dL (6.3-8.2)
[2022-10-13] MEDS: KETOROLAC 30 MG/ML VIAL 15 MG IV (07:55)
[2022-10-13] MEDS: ONDANSETRON 4 MG/2 ML INJ IV (07:57)
--- NOTE | 2022-10-13 08:06 | ED_ITS ---
HPI - Abdominal Pain General Chief Complaint: Abdominal Pain Stated Complaint: ABD PAIN Time Seen by Provider: 10/13/22 07:56 Source: patient Mode of arrival: Wheelchair Limitations: no limitations History of Present Illness HPI narrative: 52-year-old female with history of GERD, mood disorder, hypothyroidism, obst ructive sleep apnea who presents with complaint of abdominal pain sudden onset today. Patient states she was getting ready this morning had sudden sort of epigastric pain that radiated down words. She states no fevers. No chills. She is had some nausea and vomiting this morning. Patient states she is had constipation she is stooling regularly but there hard. She denies dysuria, urgency or frequency. No vaginal bleeding or discharge. Patient states no black or bloody stools. She did have abdominal pain and was diagnosed with diverticulitis in the past month or so but states that that was right-sided pain and feels different than today. She does note that she is supposed to have an E GD and colonoscopy and was told to stop her PPI for the past month in anticipation. They note that she is been taking a lot of Rolaids recently because of this. Patient states she takes okay levothyroxine, lamotrigine for mood disorder, propranolol for anxiety. Patient denies prior surgeries. We lcome rare alcohol, no illicit. Dr. Marlene Bradford as her primary care physician. Related Data Previous Rx's Medication Instructions Recorded ketorolac 10 mg tablet 10 mg PO Q6H PRN pain #14 tabs 01/01/22 ciprofloxacin HCl 500 mg tablet 500 mg PO BID #14 tabs 08/17/22 (Cipro) metronidazole 500 mg tablet 500 mg PO TID #21 tabs 08/17/22 propranolol 20 mg tablet 20 mg PO QID PRN anxiety #360 tabs 08/21/22 lamotrigine 200 mg tablet 200 mg PO DAILY #90 tabs 08/27/22 alprazolam 0.5 mg tablet See Rx Instructions .Route 09/02/22 .COMPLEX #15 tabs ondansetron 4 mg disintegrating 4 mg PO BID #16 tabs 09/02/22 tablet sodium sul 1.479 gram-potas ch See Rx Instructions PO PER PKG DIR 09/04/22 0.188 gram-magnes sul 0.225 gram #24 tabs tablet (Sutab) levothyroxine 25 mcg tablet 25 mcg PO DAILY #90 tabs 09/28/22 meloxicam 7.5 mg tablet 7.5 mg PO BID PRN pain #14 tabs 10/13/22 Allergies Allergy/AdvReac Type Severity Reaction Status Date / Time quetiapine [From Seroquel] Allergy Severe sob Verified 01/09/22 15:03 Penicillins Allergy Intermediate Hives Verified 01/09/22 15:03 erythromycin base AdvReac Mild N/V Verified 01/09/22 15:03 Review of Systems Review of Systems ROS Unobtainable: All systems reviewed & are unremarkable except as noted in HPI and below Patient History Medical History Anemia (~1998) Anxiety (~1998) Asthma Carpal tunnel syndrome (~2011) Chicken pox Degenerative disc disease (~2016) Depression (~1998) Fibroids (~2018) Headache (~2011) Heavy menstrual period (~2006) History of endometrial biopsy (01/20/21) Hypothyroidism (~2009) Insomnia Irregular menstrual cycle (~2009) Medication management Migraines (~2011) Miscarriage Obstructive sleep apnea of adult Sleep apnea (~2014) Thyroid nodule Vertigo (~2012) Surgical History Anesthesia History of hand surgery (~2011) History of microdiscectomy (~2016) S/P arthroscopic surgery of left knee (~1999) Family History Father Hypertension Hyperlipidemia Mother Cancer Grandfather History of heart attack History of heart disease Hypertension Grandmother Hypertension Social History household members: significant other Smoking Status: Former smoker Tobacco: How many years used: 20 quit status: has quit before alcohol intake: current substance use type: does not use Smoking Status: Former smoker alcohol intake frequency: holidays/special occasions only Substance Use Type: does not use Exam Narrative Exam Narrative: GENERAL: Alert and oriented x three, well-nourished female in mild distress. HEENT: Head normocephalic, atraumatic, EOMI, pupils reactive, face symmetric, moist mucous membranes NECK: Supple, full range of motion CARDIOVASCULAR: Regular rate and rhythm without murmurs, rubs or gallops. RESPIRATORY: Breath sounds equal bilaterally, no wheezes rales or rhonchi. ABDOMEN: Soft, generalized tenderness, more periumbilical. Mild. Normoactive bowel sounds all 4 quadrants. No guarding or rebound, rigidity, no mass : No CVA tenderness EXTREMITIES: Normal range of motion, no clubbing or edema. Neurovascularly intact NEUROLOGICAL: Cranial nerves II through XII grossly intact. Moving all extremities SKIN: Warm, dry, no petechiae, no rashes or lesions. Initial Vital Signs Initial Vital Signs: Vital Signs Temperature 97.7 F 10/13/22 06:52 Pulse Rate 67 10/13/22 06:52 Respiratory Rate 18 10/13/22 06:52 Blood Pressure 138/77 10/13/22 06:52 Pulse Oximetry 99 10/13/22 06:52 Oxygen Delivery Method Room Air 10/13/22 06:52 Course Orders Ordered: ED Orders 10/13/22 11:57 EKG-12 Lead Stat Discontinued Medications Ketorolac Tromethamine (Ketorolac 30 Mg/Ml Vial) 15 mg IV NOW ONE Stop: 10/13/22 07:53 Last Admin: 10/13/22 07:55 Dose: 15 mg Documented By: CECIL Morphine Sulfate (Morphine 4 Mg/Ml Inj) 4 mg IV NOW ONE Stop: 10/13/22 08:50 Last Admin: 10/13/22 08:59 Dose: 4 mg Documented By: CECIL Ondansetron HCl (Ondansetron 4 Mg Odt) 4 mg PO NOW PRN PRN Reason: Nausea And Vomiting Ondansetron HCl (Ondansetron 4 Mg/2 Ml Inj) 4 mg IV NOW PRN PRN Reason: Nausea And Vomiting Last Admin: 10/13/22 07:57 Dose: 4 mg Documented By: CECIL Pantoprazole Sodium (Pantoprazole 40 Mg Vial) 40 mg IV NOW ONE Stop: 10/13/22 08:50 Last Admin: 10/13/22 08:58 Dose: 40 mg Documented By: CECIL Vital Signs Vital signs: Vital Signs - 8 hr 10/13/22 12:00 10/13/22 12:30 10/13/22 13:00 Pulse Rate 59 L 52 L 56 L Pulse Oximetry 99 100 99 MDM - Abdominal Pain Lab Data 10/13/22 07:08 10/13/22 07:08 Labs: Lab Results 10/13/22 10/13/22 Range/Units 07:08 07:08 WBC 7.0 (4.5-11.0) X10^3/uL RBC 4.92 (4.0-5.2) X10^6/uL Hgb 14.1 (12.0-16.0) g/dL Hct 41.1 (36-46) % MCV 83.5 (80-100) fL MCH 28.6 (26-34) PG MCHC 34.3 (30-36) % RDW 13.5 (11.6-14.8) % Plt Count 161 (150-400) X10^3/uL Neut % (Auto) 55.4 (50-75) % Lymph % (Auto) 34.9 (25-40) % [place] % (Auto) 7.3 (3-14) % Eos % (Auto) 1.4 L (2-4) % Baso % (Auto) 1.0 (0-2) % Neut # (Auto) 3900 (4121-8761) /uL Lymph # (Auto) 2400 (3697-2990) /uL [place] # (Auto) 500 (0-900) /uL Eos # (Auto) 100 (0-450) /uL Baso # (Auto) 100 (0-100) /uL Sodium 139 (137-145) mmol/L Potassium 4.8 (3.4-5.1) mmol/L Chloride 103 (98-107) mmol/L Carbon Dioxide 29 (22-32) mmol/L BUN 15 (7-17) mg/dL Creatinine 0.88 (0.52-1.04) mg/dL Estimated GFR > 60 (>60) mL/min BUN/Creatinine Ratio 17.0 (6-22) Glucose 110 H (70-100) mg/dL Calcium 10.0 (8.4-10.2) mg/dL Total Bilirubin 0.5 (0.2-1.3) mg/dL AST 54 H (14-36) IU/L ALT 46 H (<35) IU/L Alkaline Phosphatase 69 (38-126) U/L Total Protein 7.3 (6.3-8.2) g/dL Albumin 4.5 (3.5-5.0) g/dL Globulin 2.8 (1.7-4.1) g/dL Albumin/Globulin Ratio 1.6 (1.0-2.8) Lipase 252 (23-300) U/L Point of care testing: Urine Dip Bedside Urine Glucose Negative Bedside Urine Bilirubin - Negative Bedside Urine Ketone - Negative Urine Specific Drayton 1.015 Bedside Urine Occult Blood - Negative Bedside Urine pH 6.0 Bedside Urine Protein - Negative Bedside Urine Urobilinogen - Negative Bedside Urine Nitrite - Negative Bedside Urine Leukocytes - Negative Esterase Imaging Data CT scan - abdomen/pelvis: Radiologist's Impression: y Data Available (More??) Close Abdomen/Pelvis CT (Signed) Ozzy Grover - 10/13/22 Abdomen/Pelvis CT (Signed) Luann Limon - 08/17/22 Chest X-Ray (Signed) Zackery Marroquin - 01/01/22 Chest X-Ray (Signed) Mikhail Carson - 07/13/21 Telemetry Strips 02/13/21 Chest X-Ray (Signed) Lance Jones - 02/06/21 Pelvis Ultrasound (Signed) Christopher Sagastume - 11/11/20 Launch?[place] [address] CT Scan Report Signed Patient: Marybel Saucedo MR#: [id number] : 1970 Acct:[id number] Age/Sex: 52 / F Date of Service: 10/13/22 Loc: ED Accession Number: [id number] ?? Procedure: CT abdomen pelvis w con Ordering Provider: Carline Buck D.O. PROCEDURE:? CT ABDOMEN PELVIS W CON ? INDICATIONS:? abd pain ? TECHNIQUE:? After the administration of intravenous contrast, axial sections acquired from the lung bases to the pubic symphysis.? Coronal and sagittal reformats were performed.? For radiation dose reduction, the following was used:? automated exposure control, adjustment of mA and/or kV according to patient size.? ? COMPARISON:? [facility], CT, CT ABDOMEN PELVIS W CON, 08/17/2022, 8:29. ? FINDINGS:? Image quality:? Good ? Lower chest:? Basal atelectasis.? Mqxo-[id number] hiatal hernia. ? Solid organs:? Subcentimeter lesions are too small to characterize, unchanged in the right lobe of the liver.? Possible hepatic steatosis.? Distended gallbladder.? Mildly dilated biliary system, with the CBD measuring up to 0.7 cm, more prominent than prior.? Mildly prominent pancreatic duct at the head .? No discrete mass is identified.? No splenomegaly.? No adrenal nodules.? Left renal cysts.? No hydronephrosis. ? Vessels and lymph nodes:? Main portal vein appears patent.? There is no abdominal aortic aneurysm.? No pathologic lymph nodes by size criteria. ? Bowel and peritoneum:? Mild distal gastric wall thickening.? No evidence of small bowel obstruction.? Colonic diverticula are present.? Appendix is nondilated.? No convincing signs of active inflammation by CT.? No intra-abdominal abscess or pathologic ascites. ? Body wall:? Unremarkable ? Pelvis:? Reproductive organs appear physiologic by limited CT evaluation, consider ultrasound if there is concern.? Prominent vessels adjacent to the left adnexa.? Bladder is unremarkable. ? Bones:? No acute or suspicious osseous finding.? Small sclerotic lesions may represent bone islands, unchanged.? There are degenerative findings. ? IMPRESSION:? No evidence of bowel obstruction, abscess, or pathologic ascites.? Normal appendix.? There are colonic diverticula, without signs of acute inflammation on CT.? Please correlate with age-appropriate colonoscopy results. ? Prominent vessels adjacent to the left adnexa, sometimes seen with pelvic congestion.? Reproductive organs could be better evaluated ultrasound if necessary. ? Mildly dilated biliary system and distended gallbladder, slightly more prominent than prior imaging.? This could be further evaluated with ultrasound or MRCP if clinically indicated. ? Other incidental and unchanged findings described above. ? ? Dictated by: Ozzy Grover M.D. on 10/13/2022 at 8:55 ? ? Approved by: Ozzy Grover M.D. on 10/13/2022 at 9:02?? ECG Data Attestation: I personally reviewed and interpreted this ECG as follows: Interpretation: Sinus bradycardia rate of 52 CA 142 QRS 88 QTC of 407. No acute changes appreciated. MDM Narrative Medical decision making narrative: This is a 52-year-old female who presents with complaint of abrupt onset of abdominal pain. Patient was seen and diagnosed with diverticulitis in July, labs today are overall reassuring urine does not show clear signs of infection. CT imaging shows 2 very small non characterize spots in the liver, hepatic st eatosis there is some mild gastric wall thickening and patient notes she stopped her omeprazole medication about a month ago, vessel adjacent to the left adnexa patient has more generalized tenderness and describes abrupt onset and epigastric region radiating down words does noted to have some mildly dilated biliary system and distended gallbladder slightly more prominent than prior. Patient seems more likely have issues with the biliary system, abdominal ultrasound and pelvic ultrasound imaging were ordered. Abdominal ultrasound shows some mild dilation of biliary ducts, gallstones. No infectious changes. Pelvic ultrasound report is not available yet but radiologist called report myself that there is no acute findings or changes. Discussed findings with patient. She is feeling much improved. Discussed suspect her symptoms are secondary to gallstones. She is going to inpatient [facility] treatment for 30 days she feels comfortable with discharge at this time we discussed return precautions. She did stop her wuli-xrv-zxzjvab omeprazole or similar-type medications was encouraged to continue this while she is inpatient psychiatric treatment. Short course of pain medication provided and encouraged to return if worsening symptoms. She was given referral for General surgery as well. Discharge Plan Departure Patient Disposition: Home Clinical Impression: Gallstones, Abdominal pain Instructions: DI for Gallstones Activity Restrictions/Additional Instructions: Your imaging does show gallstones today, there is some mild dilation of the biliary ducts but your liver enzymes are normal. Follow-up with your physician or General surgery regarding this. Please call to set up an appointment. Contact information is included below. Continue your home medications as prescribed. If you are EGD has been delayed I would restart your oral reflux or GERD medication. You can take meloxicam 1 tablet every 12 hours as needed for pain. You can also take Tylenol up to a 1000 mg every 6 hours as needed for pain. Prescription sent to [facility]. Please return for fevers, new or worsening abdominal back or flank pain, persistent vomiting, black or bloody stools or other new or concerning changes. Prescriptions: New meloxicam 7.5 mg tablet 7.5 mg PO BID PRN (Reason: pain) Qty: 14 0RF No Action lamotrigine 200 mg tablet 200 mg PO DAILY Qty: 90 0RF ondansetron 4 mg tablet,disintegrating 4 mg PO BID Qty: 16 0RF alprazolam 0.5 mg tablet See Rx Instructions .ROUTE .COMPLEX Qty: 15 0RF Rx Instructions: Take 1 tab by mouth at bedtime as needed for insomnia Sutab 1.479-0.188- 0.225 gram tablet See Rx Instructions PO PER PKG DIR Qty: 24 0RF Rx Instructions: Take as directed by Physician levothyroxine 25 mcg tablet 25 mcg PO DAILY Qty: 90 3RF propranolol 20 mg tablet 20 mg PO QID PRN (Reason: anxiety) Qty: 360 4RF metronidazole 500 mg tablet 500 mg PO TID Qty: 21 0RF ciprofloxacin HCl [Cipro] 500 mg tablet 500 mg PO BID Qty: 14 0RF ketorolac 10 mg tablet 10 mg PO Q6H PRN (Reason: pain) Qty: 14 0RF Referrals: Leona Frey MD [Physician] - Marlene Bradford DO [Primary Care Provider] - Stand Alone Forms: Patient Portal/API
--- NOTE | 2022-10-13 08:45 | DI.CT.S_ITS ---
PROCEDURE: CT ABDOMEN PELVIS W CON INDICATIONS: abd pain TECHNIQUE: After the administration of intravenous contrast, axial sections acquired from the lung bases to the pubic symphysis. Coronal and sagittal reformats were performed. For radiation dose reduction, the following was used: automated exposure control, adjustment of mA and/or kV according to patient size. COMPARISON: [facility], CT, CT ABDOMEN PELVIS W CON, 08/17/2022, 8:29. FINDINGS: Image quality: Good Lower chest: Basal atelectasis. Sleb-oa-fhpwzhxg hiatal hernia. Solid organs: Subcentimeter lesions are too small to characterize, unchanged in the right lobe of the liver. Possible hepatic steatosis. Distended gallbladder. Mildly dilated biliary system, with the CBD measuring up to 0.7 cm, more prominent than prior. Mildly prominent pancreatic duct at the head . No discrete mass is identified. No splenomegaly. No adrenal nodules. Left renal cysts. No hydronephrosis. Vessels and lymph nodes: Main portal vein appears patent. There is no abdominal aortic aneurysm. No pathologic lymph nodes by size criteria. Bowel and peritoneum: Mild distal gastric wall thickening. No evidence of small bowel obstruction. Colonic diverticula are present. Appendix is nondilated. No convincing signs of active inflammation by CT. No intra-abdominal abscess or pathologic ascites. Body wall: Unremarkable Pelvis: Reproductive organs appear physiologic by limited CT evaluation, consider ultrasound if there is concern. Prominent vessels adjacent to the left adnexa. Bladder is unremarkable. Bones: No acute or suspicious osseous finding. Small sclerotic lesions may represent bone islands, unchanged. There are degenerative findings. IMPRESSION: No evidence of bowel obstruction, abscess, or pathologic ascites. Normal appendix. There are colonic diverticula, without signs of acute inflammation on CT. Please correlate with age-appropriate colonoscopy results. Prominent vessels adjacent to the left adnexa, sometimes seen with pelvic congestion. Reproductive organs could be better evaluated ultrasound if necessary. Mildly dilated biliary system and distended gallbladder, slightly more prominent than prior imaging. This could be further evaluated with ultrasound or MRCP if clinically indicated. Other incidental and unchanged findings described above. Dictated by: Ozzy Grover M.D. on 10/13/2022 at 8:55 Approved by: Ozzy Grover M.D. on 10/13/2022 at 9:02
[2022-10-13] MEDS: PANTOPRAZOLE 40 MG VIAL IV (08:58)
[2022-10-13] MEDS: MORPHINE 4 MG/ML INJ IV (08:59)
--- NOTE | 2022-10-13 09:08 | DI.US.S_ITS ---
PROCEDURE: US PELVIC COMPLETE INDICATIONS: PELVIC CONGESTION LEFT TECHNIQUE: Real-time scanning was performed of the pelvic organs, with image documentation. Additional endovaginal scanning was necessary due to incomplete visualization of the adnexal and endometrial structures by transabdominal scanning. COMPARISON: [facility], , US PELVIC COMPLETE, 11/11/2020, 15:01. FINDINGS: Uterus: Uterus is anteverted and normal in size at 7.6 x 4.1 x 4.5 cm. The myometrium is heterogeneous. The endometrium measures 1 mm combined thickness. Anechoic fluid versus small cyst within the endometrium. Ovaries: Right ovary not visualized due to overlying bowel gas. Left ovary measures 2.5 x 1.7 x 2.3 centimeters, volume of 5 milliliter. No mass. Dilated left gonadal vasculature. Other: No pathologic free abdominal or pelvic fluid. IMPRESSION: Dilated left gonadal vasculature, which can be seen in the setting of pelvic congestion syndrome. Anechoic fluid versus small cysts within the endometrium. Given negative beta hCG, further follow-up likely not warranted. We strive to produce accurate, complete, and clear reports of imaging services. To assist us in improving patient care, this report was composed using standard report templates and voice recognition software. Therefore, it may contain abnormal punctuation, insertions and/or omissions. Occasional wrong-word or sound-alike substitutions may occur. Though we review the report and make efforts to correct it, we do recommend that the report be read carefully in proper context to recognize any text inaccuracies. Dictated by: Urbano Lu M.D. on 10/13/2022 at 13:26 Approved by: Urbano Lu M.D. on 10/13/2022 at 13:29
--- NOTE | 2022-10-13 09:08 | DI.US.S_ITS ---
PROCEDURE: US ABDOMEN LIMITED INDICATIONS: ABDOMEN PAIN TECHNIQUE: Real-time focused scanning was performed of the abdomen, with image documentation. COMPARISON: [facility], US, US PELVIC COMPLETE, 10/13/2022, 10:06. [facility], CT, CT ABDOMEN PELVIS W CON, 10/13/2022, 8:19. FINDINGS: The liver demonstrates normal size. The liver demonstrates generalized moderately increased echogenicity. This decreases ultrasound sensitivity for detection of hepatic masses. Fatty sparing can be seen adjacent to the gallbladder. Layering gallstones are seen. The gallbladder wall is not thickened, measuring 3 mm or less. No specific pericholecystic fluid is seen. The sonographic Kim sign is negative. Minimal biliary dilatation is seen, measuring 8 mm. No significant pancreatic abnormality is seen on these images. IMPRESSION: Gallstones are seen, without additional sonographic signs of cholecystitis. Minimal biliary dilatation, 8 mm. Fatty liver infiltration can be seen. Dictated by: Mikhail Carson M.D. on 10/13/2022 at 9:56 Approved by: Mikhail Carson M.D. on 10/13/2022 at 9:57
== END 2022-10-13 13:09 | disposition home or self-care (01) ==
PROVIDERS: Emergency Provider Emergency Medicine; PCP Family Medicine
DX: K80.20 Calculus of gallbladder without cholecystitis without obstruction (principal); R10.9 Unspecified abdominal pain
CPT/HCPCS: 74177; 76705; 76830; 76856; 80053; 81003; 83690; 85025; 93005; 93976; 96374; 96375; 99284; C9113; J1885; J2270; J2405; Q9967

== ENCOUNTER 2022-12-14 09:57 | Day surgery (SDC) | payer OTHER, SELFPAY ==
[2022-11-16 13:41] VITALS: BMI 28.6
[2022-12-07 07:50] VITALS: BMI 26.9
[2022-12-14] VITALS (11 sets, daily range): BP systolic 109–129; BP diastolic 64–81; PULSE 53–70; RESP 12–22; TEMP 36.1–36.7; O2SAT 99–100; BMI 26.9
--- NOTE | 2022-12-14 | PATH_ITS ---
[facility] Accession Number: [id number] No. of containers..01 Tissue . 01 Material submitted: . gallbladder - GALLBLADDER . 01 Diagnosis: Gallbladder, Cholecystectomy: Mild chronic calculous cholecystitis and cholesterolosis. Negative for dysplasia and malignancy. MRV 12/17/2022 1132 Local . 01 Electronically signed: . Tommy Ta MD, Pathologist NPI- [id number] . 01 Gross description: . Received in formalin, labeled with the patient's name and gallbladder, is a 7.4 x 3.2 x 3.0 cm intact purple-green, smooth and glistening gallbladder with focally ragged, cauterized liver bed resection margin. The cystic duct margin is inked blue. The lumen is distended by green-sutton thick viscous bile. There are innumerable nodular yellow-sutton calculi ranging from 0.2 to 0.7 cm, none of which obstruct or occlude the cystic duct. The mucosa is green-sutton, smooth, and velvety with no lesions or abnormalities. The wall thickness averages 0.2 cm. [employer] sections are submitted in A1. ([id number]) /MRV 12/15/2022 1535 Local . 01 Pathologist provided ICD-10: K80.20 . 01 CPT . 164965 Specimen Comment: A courtesy copy of this report has been sent to [phone] Performed at: 01 [facility] [address] [place] [address] [id number] MD Mike Barney MD Phone: [phone]
[2022-12-14] MEDS: SCOPOLAMINE 1 PATCH TOP (10:57)
[2022-12-14] MEDS: LACTATED RINGERS 1,000 ML 42 ML IV ×2 (10:59→12:59)
--- NOTE | 2022-12-14 11:46 | PM.PREOP ---
Pre-operative Note COVID-19 COVID-19 status: Not tested Interval Note History & Physical reviewed/Exam performed by Physician: Yes Changes to H&P: No ASA Class (for procedural sedation): II
[2022-12-14] MEDS: CEFAZOLIN 2 GM/100 ML PREMIX 100 ML IV (12:10)
--- NOTE | 2022-12-14 12:29 | SUR.OPER ---
Supine on padded OR bed, head on pillow, safety belt at thigh, left arm padded and tucked at side. Right arm secured on padded arm board <90 degrees abduction. Legs uncrossed. Padded footboard in place. Tape over blanket to secure lower legs.
[2022-12-14] MEDS: BUPIVACAINE 0.5% (PF) 30 ML, EPINEPHrine 0.15 MG INJ (12:34)
--- NOTE | 2022-12-14 13:22 | PM.OP.1 ---
Operative Date/Time/Diagnoses Date of procedure: 12/14/22 Time of procedure: 13:22 Pre-op diagnosis: Symptomatic cholelithiasis Post-op diagnosis: same Procedure & Clinicians Procedure: Laparoscopic cholecystectomy Same procedure as scheduled: Yes Surgeon: Gordo Yan Anesthesia Type: General Operative Notes Procedure in detail: The patient was given preoperative antibiotics. The patient was brought to the operating room and placed on the table in the supine position. General endotracheal anesthesia was induced. The abdomen was prepped and draped. A time-out was performed. We made a 1 cm infraumbilical incision. We dissected down to the base of the umbilical stalk using cautery. We grasped the umbilical stalk with a Shaniqua clamp to elevate the abdominal wall. We scored the fascia in the midline with cautery. We pierced the peritoneum with a Peon clamp. The Lorna port was placed and the abdomen was insufflated to 15 mmHg. A 5 mm 30 degree laparoscopic was inserted. There was no evidence of any injury from the entry. Next, we placed 5 mm ports in the subxiphoid position and right upper quadrant at the midclavicular line and anterior axillary line. The patient was then positioned in reverse Trendelenburg and the table was tilted to the left. The gallbladder was grasped at the dome and retracted cephalad. There was minimal adhesions and minimal inflammation. We then dissected the cystic structures with a combination of hook cautery and blunt dissection. No discrete cystic artery was found just multiple terminal branches which were cauterized. We obtained a critical view. We placed clips on the cystic duct and divided the cystic duct sharply between the clips. The gallbladder was then dissected off the liver and placed in a specimen retrieval bag. We irrigated the right upper quadrant and all the aspirate returned clear. We then removed the 5 mm ports under direct vision we removed the Lorna port. We then injected some local into the fascia and closed the fascia with 2 interrupted 0 Vicryl sutures. The skin incisions were closed with 4-0 Monocryl and Steri-Strips were applied. Band-Aids were applied over the Steri-Strips. EBL: 30 mL Specimen: Gallbladder and contents Post-operative Condition: stable Disposition: PACU
[2022-12-14] MEDS: OXYCODONE IR 5 MG TABLET PO (13:46)
[2022-12-14] MEDS: ACETAMINOPHEN 325 MG TABLET 975 MG PO (13:46)
[2022-12-14] MEDS: ONDANSETRON 4 MG/2 ML INJ IV (13:46)
[2022-12-14] MEDS: LORazepam 2 MG/ML INJ 0.25 MG IV ×2 (14:00→14:10)
== END 2022-12-14 15:02 | disposition home or self-care (01) ==
PROVIDERS: PCP Family Medicine; Referring Provider Surgery; Visit Provider Surgery
PROC: 0FT44ZZ Resection of Gallbladder, Percutaneous Endoscopic Approach (ICD-10-PCS; CPT 47562; principal; 2022-12-14 11:30)
DX: K80.10 Calculus of gallbladder with chronic cholecystitis without obstruction (principal)
CPT/HCPCS: 47562; J0171; J0690; J1100; J1885; J2060; J2405; J2704; J3010

== ENCOUNTER 2023-01-07 08:46 | Day surgery (SDC) | payer OTHER, SELFPAY ==
[2022-11-16 13:41] VITALS: BMI 28.6
--- NOTE | 2023-01-07 | PATH_ITS ---
[facility] Accession Number: [id number] No. of containers..03 Tissue . 01 Material submitted: . PART A: duodenum - DUODENUM PART B: stomach - ANTRUM PART C: esophagus, E-G Junction - GE JUNCTION . 01 Diagnosis: A. Duodenum, Biopsy: Duodenal mucosa with no diagnostic abnormality. Negative for active inflammation, features of sprue, dysplasia, or malignancy. . B. Stomach, Antrum, Biopsy: Antral mucosa with mild chronic gastritis. Negative for Helicobacter organisms by immunohistochemistry. Negative for intestinal metaplasia. Negative for dysplasia and malignancy. . C. 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 No obvious viral cytopathic effects or fungal organisms identified on H/E stain. Negative for dysplasia and malignancy. [facility] 01/15/2023 0831 Local . 01 Electronically signed: . Anna Reno MD, Pathologist NPI- [id number] . 01 Gross description: . Part A: DUODENUM: Received in formalin is 2 fragment(s) of sutton, soft tissue measuring 0.3 x 0.2 x 0.2 cm to 0.2 x 0.1 x 0.1 cm submitted entirely in 1 cassette(s) Part B: ANTRUM: Received in formalin is 3 fragment(s) of sutton, soft tissue measuring 0.4 x 0.2 x 0.1 cm to 0.2 x 0.1 x 0.1 cm submitted entirely in 1 cassette(s) Part C: GE JUNCTION: Received in formalin is multiple fragment(s) of sutton, soft tissue measuring 0.5 x 0.3 x 0.1 cm in aggregate submitted entirely in 1 cassette(s) /AAY 01/08/2023 0454 Local . 01 Microscopic: . B. An immunohistochemical stain was performed to evaluate for Helicobacter organisms and is negative. The control stain showed appropriate reactivity. . C. An AB-PAS stain was performed to evaluate for intestinal metaplasia and is focally positive. The control stain showed appropriate reactivity. . * This test was developed and its performance characteristics determined by [facility]. It has not been cleared or approved by the U.S. Food and Drug Administration. The FDA has determined that such clearance or approval is not necessary. This test is used for clinical purposes. It should not be regarded as investigational or for research. . 01 Pathologist provided ICD-10: R13.10, K22.70 . 01 CPT . 350551, 917106, 082811, F96321, 919346 Specimen Comment: A courtesy copy of this report has been sent to [phone] Performed at: 01 [facility] [address] [place] [address] [address] [facility], [place], [place] [id number] MD Mike Barney MD Phone: [phone]
[2023-01-07 09:07] VITALS: BMI 26.9
[2023-01-07] MEDS: LACTATED RINGERS 1,000 ML 42 ML IV (09:17)
[2023-01-07 09:21] VITALS: BP 117/80; PULSE 69; RESP 16; TEMP 36.6; O2SAT 99
--- NOTE | 2023-01-07 09:49 | P.HP_ITS ---
History of Present Illness History of Present Illness Date Patient Seen: 01/07/23 Time Patient Seen: 09:49 Chief complaint: EGD & Colonoscopy w/poss bx's Narrative: Marybel 52-year-old woman who is here for an EGD and colonoscopy. She has GERD symptoms and she is due for a colonoscopy for colon cancer screening. [facility] Medical History (Updated 01/07/23 @ 09:50 by Gordo Yan MD) History of COVID-19 (07/2021) Arthritis Diverticulosis Obstructive sleep apnea of adult Medication management History of endometrial biopsy (01/20/21) Insomnia Asthma Chicken pox Miscarriage Thyroid nodule Sleep apnea (~2014) Depression (~1998) Anxiety (~1998) Migraines (~2011) Headache (~2011) Degenerative disc disease (~2016) Carpal tunnel syndrome (~2011) Anemia (~1998) Vertigo (~2012) Irregular menstrual cycle (~2009) Heavy menstrual period (~2006) Fibroids (~2018) Hypothyroidism (~2009) Surgical History Anesthesia History of microdiscectomy (~2016) History of hand surgery (~2011) S/P arthroscopic surgery of left knee (~1999) Family History Father Hypertension Hyperlipidemia Mother Cancer Grandfather History of heart attack History of heart disease Hypertension Grandmother Hypertension Social History household members: significant other Smoking Status: Former smoker Tobacco: How many years used: 20 quit status: has quit before alcohol intake: current substance use type: does not use Meds Home Medications and Allergies Home Medications Medication Instructions Recorded Confirmed Type ondansetron 4 mg disintegrating 4 mg PO BID #16 tabs 09/02/22 01/07/23 Rx tablet levothyroxine 25 mcg tablet 25 mcg PO DAILY #90 tabs 09/28/22 01/07/23 Rx lamotrigine 200 mg tablet 200 mg PO DAILY #90 tabs 11/11/22 01/07/23 Rx alprazolam 0.5 mg tablet See Rx Instructions .Route 12/03/22 01/07/23 Rx .COMPLEX #15 tabs propranolol 20 mg tablet 20 mg PO DAILY 12/07/22 01/07/23 History Allergies Allergy/AdvReac Type Severity Reaction Status Date / Time quetiapine [From Seroquel] Allergy Severe shortness Verified 01/07/23 09:01 of breath Penicillins Allergy Intermediate Hives Verified 01/07/23 09:01 ciprofloxacin AdvReac Severe Vomiting Verified 01/07/23 09:01 erythromycin base AdvReac Mild N/V Verified 01/07/23 09:01 Exam Vital Signs (past 8 hours): - 01/07/23 09:21 Temperature 97.8 F Pulse Rate 69 Respiratory Rate 16 Blood Pressure 117/80 Pulse Oximetry 99 Oxygen Delivery Method Room Air Oxygen Delivery Method Room Air Const General: healthy appearing Assessment & Plan Assessment and plan (1) Colon cancer screening: Status: Acute (2) GERD (gastroesophageal reflux disease): Qualifiers: Esophagitis presence: esophagitis presence not specified Qualified Code(s): K21.9 - Gastro-esophageal reflux disease without esophagitis Status: Chronic Plan We reviewed the risks and benefits of EGD and colonoscopy and she would like to proceed.
--- NOTE | 2023-01-07 10:23 | PM.OP.EC ---
Operative Date/Time/Diagnoses Date of procedure: 01/07/23 Time of procedure: 10:24 Pre-op diagnosis: GERD and cancer screening Post-op diagnosis: same Procedure & Clinicians Study performed: EGD and colonoscopy Same procedure as scheduled: Yes Surgeon: Gordo Yan Procedure Notes Procedure in detail: Surgeon: Gordo Yan MD Anesthesia: Latisha Dockery CRNA Procedure in detail: A timeout was performed. A bite blocked was placed and monitors were attached to the patient. The patient was positioned in the left lateral decubitus position. Sedation was administered. Once the patient was sedated the endoscope was inserted through the bite block and passed through the esophagus and stomach and into the duodenum. There was some mild duodenitis. We took random biopsies from the duodenum. We then withdrew the scope into the stomach. There was some mild antritis and we took random biopsies from the antrum. The endoscope was retroflexed and a small hiatal hernia was seen. The endoscope was straightned and withdrawn into the esophagus. There was some esophagitis of the distal esophagus and we took random biopsies from the GE junction. Findings: Duodenitis, antritis and distal esophagitis Next we repositioned the patient for a colonoscopy. A digital rectal exam was performed and was normal. The colonoscope was inserted and advanced to the cecum. The appendiceal orifice was identified and photographed. The scope was slowly withdrawn over greater than 6 minutes. No abnormalities were found other than some scattered diverticula. The scope was retroflexed in the rectum and no abnormalities were seen. Findings: Scattered diverticulosis EBL: 5 mL Scope withdrawal time: 8 minutes Sedation minutes: 23 minutes Post-procedure Disposition: PACU
[2023-01-07 10:25] VITALS: BP 108/54; PULSE 87; RESP 14; TEMP 36.1; O2SAT 93
[2023-01-07 10:30] VITALS: BP 90/60; PULSE 68; RESP 17; O2SAT 99
[2023-01-07 10:35] VITALS: BP 93/69; PULSE 67; RESP 13; O2SAT 100
[2023-01-07 10:49] VITALS: BP 105/81; PULSE 74; RESP 24; TEMP 36.7; O2SAT 97
== END 2023-01-07 11:06 | disposition home or self-care (01) ==
PROVIDERS: PCP Family Medicine; Referring Provider Surgery; Visit Provider Surgery
PROC: 0DJ08ZZ Inspection of Upper Intestinal Tract, Via Natural or Artificial Opening Endoscopic (ICD-10-PCS; CPT 43235; principal; 2023-01-07 09:45)
PROC: 0DJD8ZZ Inspection of Lower Intestinal Tract, Via Natural or Artificial Opening Endoscopic (ICD-10-PCS; CPT 45378; 2023-01-07 09:45)
DX: Z12.11 Encounter for screening for malignant neoplasm of colon (principal); K21.9 Gastro-esophageal reflux disease without esophagitis; K57.30 Diverticulosis of large intestine without perforation or abscess without bleeding; K44.9 Diaphragmatic hernia without obstruction or gangrene; K29.50 Unspecified chronic gastritis without bleeding; K22.70 Barrett's esophagus without dysplasia
CPT/HCPCS: 45378; 43239; J2704

== ENCOUNTER → 2023-01-20 08:02 | Outpatient (CLI) | payer OTHER, SELFPAY ==
[2022-11-16 13:41] VITALS: BMI 28.6
--- NOTE | 2023-01-20 08:03 | DI.MG.S_ITS ---
BILATERAL DIGITAL SCREENING MAMMOGRAM 3D/2D WITH CAD: 01/20/2023 CLINICAL: Routine screening. Comparison is made to exam dated: 03/19/2015 mammogram - Outside facility. Both breasts are heterogeneously dense, which may obscure small masses (category c / 51-75% glandular tissue). Current study was also evaluated with a Computer Aided Detection (CAD) system. No significant masses, calcifications, or other findings are seen in either breast. There has been no significant interval change. IMPRESSION: NEGATIVE There is no mammographic evidence of malignancy. A 1 year screening mammogram is recommended. Based on the Tyrer Cuzick model (a risk assessment model) the patient's lifetime risk is 10.4% and her 10 year risk is 2.4%. According to the ACR, ACS, and NCCN guidelines, an annual breast MRI exam along with mammogram is recommended if the patient's lifetime risk is 20% or greater. This exam was interpreted at Station ID: [id number]. NOTE: For mammograms, a report in lay terms will be sent to the patient. Approximately 15% of breast malignancies will not be visualized mammographically. In the management of a palpable breast mass, a negative mammogram must not discourage biopsy of a clinically suspicious lesion. Electronically Signed By: Phoenix don/jimena:01/20/2023 09:55:24 letter sent: Normal Exam ACR BI-RADS Category 1: Negative [id number]
== END ==
PROVIDERS: PCP Family Medicine; Referring Provider Family Medicine; Visit Provider Family Medicine
DX: Z12.31 Encounter for screening mammogram for malignant neoplasm of breast (principal)
CPT/HCPCS: 77063; 77067

== ENCOUNTER → 2023-02-24 08:58 | Outpatient (CLI) | payer OTHER, SELFPAY ==
[2022-11-16 13:41] VITALS: BMI 28.6
[2023-02-24 10:33] LABS: Thyroid Stimulating Hormone 2.33 uIU/mL (0.47-4.68)
[2023-02-24 10:45] LABS: HIV 1 & 2 Ab/Ag 4th Gen Combo NEGATIVE (NEGATIVE)
[2023-02-25 03:23] LABS: RPR Screen Non Reactive (Non Reactive)
== END ==
PROVIDERS: PCP Family Medicine; Referring Provider Family Medicine; Visit Provider Family Medicine
DX: E03.9 Hypothyroidism, unspecified (principal); Z20.2 Contact with and (suspected) exposure to infections with a predominantly sexual mode of transmission
CPT/HCPCS: 36415; 84443; 86592; 87389

== ENCOUNTER → 2023-03-25 17:00 | Outpatient (CLI) | payer OTHER, SELFPAY ==
[2022-11-16 13:41] VITALS: BMI 28.6
[2023-03-25 18:10] LABS: Alanine Aminotransferase 22 IU/L (<35); Albumin 4.3 g/dL (3.5-5.0); Albumin Globulin Ratio 1.5 (1.0-2.8); Alkaline Phosphatase 65 U/L (38-126); Aspartate Aminotransferase 24 IU/L (14-36); Bilirubin Total 0.6 mg/dL (0.2-1.3); Bilirubin Unconjugated 0.3 mg/dL (0.0-1.1); Globulin 2.8 g/dL (1.7-4.1); HEMOLYSIS < 15 (0-50); Lipase 201 U/L (23-300); Total Protein 7.1 g/dL (6.3-8.2)
== END ==
LOC: LAB 17:02
PROVIDERS: PCP Family Medicine; Referring Provider Internal Medicine Gastroenterology; Visit Provider Internal Medicine Gastroenterology
DX: R74.8 Abnormal levels of other serum enzymes (principal); R93.5 Abnormal findings on diagnostic imaging of other abdominal regions, including retroperitoneum
CPT/HCPCS: 36415; 80076; 83690

== ENCOUNTER → 2023-09-28 07:41 | Outpatient (CLI) | payer OTHER, SELFPAY ==
[2022-11-16 13:41] VITALS: BMI 28.6
--- NOTE | 2023-09-28 07:45 | DI.MRI.S_ITS ---
PROCEDURE: MR LUMBAR SPINE WO/W CON INDICATIONS: LOW BACK PAIN,RADICULOPATHY LUMBAR REGION TECHNIQUE: Noncontrast sagittal T1 spin echo and T2 fast echo, sagittal STIR, and T2 fast spin echo through the lumbar spine. In cases with scoliosis, additional coronal T2 fast spin echo may be performed. Pre and postcontrast images of the lumbar spine also obtained. Cystic structure COMPARISON: None. FINDINGS: Image quality: Excellent. Alignment and Curvature: There is straightening of lumbar lordosis. Bone Marrow: Bone marrow signal is maintained. Incidental osseous hemangiomas. Spinal Cord: Conus medullaris terminates at the L1 level. Visualized cord demonstrates normal signal and size. Paraspinous Soft Tissues: No paravertebral masses. Intervertebral discs: Multilevel disc desiccation with areas of height loss. Enhancement: No pathologic enhancement. He air T12-L1: No spinal canal stenosis or foraminal stenosis. There is bilateral facet arthropathy and mild ligamentum flavum hypertrophy. L1-L2: No spinal canal stenosis or foraminal stenosis. There is bilateral facet arthropathy and ligamentum flavum hypertrophy L2-L3: No spinal canal stenosis mild bilateral foraminal narrowing. There is bilateral facet arthropathy and ligamentum flavum hypertrophy. L3-L4: Dorsal disc bulge mildly effaces the ventral thecal sac. Neural foraminal stenosis. There is bilateral facet arthropathy and ligamentum flavum marked hypertrophy. L4-L5: There is a moderate-sized central disc extrusion with corresponding annular tear that results in severe spinal canal stenosis. Mild bilateral foraminal narrowing. There is bilateral facet arthropathy and ligamentum flavum hypertrophy. L5-S1: No spinal canal stenosis or foraminal stenosis. Bilateral facet arthropathy and ligamentum flavum hypertrophy. IMPRESSION: 1. Multilevel degenerative disc disease. The worst level is said L4-L5 which demonstrates a moderate size central disc extrusion and corresponding annular tear that resolved in severe spinal canal stenosis. 2. There is straightening of lumbar lordosis. Disc finding can be seen in patients with muscle spasms. 3. No pathologic enhancement. Dictated by: Leroy Underwood M.D. on 09/28/2023 at 11:44 Approved by: Leroy Underwood M.D. on 09/28/2023 at 12:24
== END ==
LOC: MRI 07:44
PROVIDERS: PCP Family Medicine; Referring Provider Nurse Practitioner Family; Visit Provider Nurse Practitioner Family
DX: M51.16 Intervertebral disc disorders with radiculopathy, lumbar region (principal); M47.26 Other spondylosis with radiculopathy, lumbar region; M47.27 Other spondylosis with radiculopathy, lumbosacral region; M48.061 Spinal stenosis, lumbar region without neurogenic claudication; M54.50 Low back pain, unspecified
CPT/HCPCS: 72158; A9579

== ENCOUNTER → 2024-01-06 08:38 | Outpatient (CLI) | payer OTHER, SELFPAY ==
[2022-11-16 13:41] VITALS: BMI 28.6
== END ==
PROVIDERS: Family Provider Nurse Practitioner Family; PCP Family Medicine; Referring Provider Nurse Practitioner Family; Visit Provider Nurse Practitioner Family
DX: R20.2 Paresthesia of skin (principal); M79.621 Pain in right upper arm
CPT/HCPCS: 95886; 95909

== ENCOUNTER → 2024-11-17 16:31 | Outpatient (CLI) | payer OTHER, SELFPAY ==
[2024-11-13 09:30] VITALS: BMI 28.6
--- NOTE | 2024-11-17 16:32 | DI.MRI.S_ITS ---
PROCEDURE: MRFOOT LT WO CON INDICATIONS: Left foot pain TECHNIQUE: Multiphasic, multisequence MRI of the forefoot was performed, without intravenous contrast administration. COMPARISON: None. FINDINGS: Image quality: Excellent. Bones and joints: Bone marrow contusion of the plantar distal cuboid. No discrete fracture line. Otherwise normal bone alignment. No stress reaction. No suspicious marrow replacing process. The sesamoid bones appear in expected positions, without internal edema. No metatarsophalangeal joint degeneration. No intraosseous lesions. Soft tissues: Mild strain of the medial head of flexor hallucis brevis. Otherwise the visualized plantar foot muscles demonstrate normal signal and bulk. Visualized flexor and extensor tendons appear intact, without tenosynovitis. The distal insertions of the peroneus brevis and longus tendons appear intact. The principal Lisfranc ligament appears intact. No soft tissue ganglion cysts or bursal fluid collections. Sagittal images demonstrate no evidence for plantar plate tears. IMPRESSION: 1. Cuboid bone marrow contusion without discrete fracture line. 2. Mild strain of the medial head of the flexor hallucis brevis. Dictated by: Frankie Black M.D. on 11/20/2024 at 11:27 Approved by: Frankie Black M.D. on 11/20/2024 at 11:31
--- NOTE | 2024-11-17 16:32 | DI.MRI.S_ITS ---
PROCEDURE: MR ANKLE LT WO CON INDICATIONS: Left ankle pain TECHNIQUE: Noncontrast sagittal T1 spin echo and T2 fast spin echo with fat saturation, axial proton density fast spin echo and T2 fast spin echo with fat saturation, coronal T1 spin echo and T2 fast spin echo with fat saturation through the ankle/hindfoot. COMPARISON: None. FINDINGS: Image quality: Excellent. Osseous structures: Bone marrow edema within the plantar cuboid without discrete fracture line. Possible contusion. Small tibiotalar joint effusion. No suspicious marrow replacing process. Ligaments: Intact syndesmotic ligaments. Complete tear of the anterior talofibular ligament. Intact posterior talofibular ligament. Mild sprain of the deep deltoid ligament. Sprain of the proximal calcaneofibular ligament. No high-grade tear. Intact tibiospring and spring ligament complex. Intact Lisfranc ligament. Muscles / Tendons: Intact anterior extensor tendons. Intact medial flexor tendons. Intact Achilles tendon. Intact peroneal tendons. Normal intrinsic foot musculature. Plantar fascia: Intact Miscellaneous: Preserved fat in sinus tarsi. The superficial soft tissues are unremarkable. Neurovascular: Unremarkable. IMPRESSION: 1. Complete tear of the anterior talofibular ligament. 2. Mild sprain of the deep deltoid ligament. 3. Bone marrow contusion in the cuboid without fracture. Dictated by: Frankie Black M.D. on 11/20/2024 at 11:19 Approved by: Frankie Black M.D. on 11/20/2024 at 11:27
== END ==
LOC: MRI 16:32
PROVIDERS: Family Provider Nurse Practitioner Family; PCP Nurse Practitioner Family; Referring Provider Nurse Practitioner Family; Visit Provider Nurse Practitioner Family
DX: S93.492A Sprain of other ligament of left ankle, initial encounter (principal); S93.422A Sprain of deltoid ligament of left ankle, initial encounter; S90.02XA Contusion of left ankle, initial encounter; S96.812A Strain of other specified muscles and tendons at ankle and foot level, left foot, initial encounter; M79.672 Pain in left foot; M25.572 Pain in left ankle and joints of left foot
CPT/HCPCS: 73718; 73721